=== PATIENT | male | born 1940 | race Caucasian/White ===

== ENCOUNTER → 2018-09-28 | Outpatient (CLI) | payer MEDICARE ==
[2018-09-28 14:08] LABS: Blood Urea Nitrogen 24 mg/dL (9-20)
--- NOTE | 2018-09-28 14:51 | CT ---
EXAMINATION TYPE: CT chest w con DATE OF EXAM: 09/28/2018 COMPARISON: None HISTORY: Abnormal findings lung field CT DLP: 658 mGycm Automated exposure control for dose reduction was used. CONTRAST: CT scan of the chest is performed with IV Contrast, patient injected with 100 mL of Isovue 300. FINDINGS: LUNGS: Pleural-based left upper lobe nodule image 22 measuring 5.4 mm. No additional nodules or tramaine s seen. Minimal upper lobe emphysematous changes. No volume loss or infiltrate. MEDIASTINUM: Right paratracheal adenopathy measuring 2 cm. Prevascular space adenopathy measuring up to 1.1 cm. Multiple subcentimeter high right paratracheal lymph nodes. Subcarinal adenopathy measurin g 1.8 cm. There is evidence of cardiomegaly. Mild atheromatous change of the thoracic aorta without e vidence for aneurysm. UPPER ABDOMEN: Incidental cholelithiasis. Nonobstructing left-sided nephrolithiasis. OTHER: No additional significant abnormality is seen. IMPRESSION: 1. Nonspecific mediastinal adenopathy. 2. Small left upper lobe pulmonary nodule. Follow-up in 4-6 months is advised.
== END | disposition home or self-care (01) ==
LOC: RADCTMAIN 13:25
PROVIDERS: ATTEND Family Medicine
DX: R91.1 Solitary pulmonary nodule (principal); R59.0 Localized enlarged lymph nodes
CPT/HCPCS: 82565; 84520; 71260; 36415; Q9967

== ENCOUNTER → 2018-11-18 | Outpatient (CLI) | payer MEDICARE ==
--- NOTE | 2018-11-18 14:54 | US ---
LOWER EXTREMITY VENOUS INSUFFICIENCY SIDE PERFORMED: Bilateral 1) Color flow is present and patency is documented in the following vessels. No DVT or SVT is noted . EIV Common Femoral Vein Deep Femoral Vein Femoral Vein Popliteal Vein Proximal Calf Veins Greater Saph Vein Upper Small Saph Vein 2) There is venous reflux noted at the following venous levels: None IMPRESSION: 1. No venous reflux bilateral lower extremity ultrasound
== END ==
LOC: RADUSWWP 13:21
PROVIDERS: ATTEND Nurse Practitioner Family
DX: M79.604 Pain in right leg (principal); M79.605 Pain in left leg; E63.8 Other specified nutritional deficiencies
CPT/HCPCS: 93923; 93970

== ENCOUNTER → 2019-10-13 | Outpatient (CLI) | payer MEDICARE ==
--- NOTE | 2019-10-14 06:39 | CT ---
EXAMINATION TYPE: CT chest w con DATE OF EXAM: 10/13/2019 COMPARISON: HISTORY: SOB CT DLP: 659 mGycm Automated exposure control for dose reduction was used. CONTRAST: CT scan of the chest is performed with IV Contrast, patient injected with 100 mL of Isovue 300. FINDINGS: LUNGS: Stable 5.5 mm pulmonary nodule left upper lobe image 21 versus 5.4 mm previously. New 4.4 mm n odular density right lower lobe anteriorly image 29. Parenchymal scarring noted at the lung bases. No evidence for consolidation. No pulmonary mass identified. MEDIASTINUM: Persistent mediastinal adenopathy with high right paratracheal lymph node measuring 1.6 cm multiple right paratracheal lymph nodes measuring up to 2.5 cm versus 2.0 cm previously in short a xis. Subcarinal adenopathy measuring 2.0 cm versus 1.8 cm previously. Adenopathy within the prevascul ar space measuring 1.2 cm versus 1.2 cm previously. Thoracic aorta is of normal caliber. The heart is enlarged. UPPER ABDOMEN: No significant abnormality appreciated. OTHER: No additional significant abnormality is seen. IMPRESSION: 1. Stable left upper lobe pulmonary nodule with a new nodular density right lower lobe. Stability ove r a two-year timeframe should be documented radiographically. 2. Nonspecific mediastinal adenopathy is again redemonstrated. 3. Cholelithiasis. 4 nonobstructing left-sided nephrolithiasis.
== END | disposition home or self-care (01) ==
LOC: RADCTMAIN 15:24
PROVIDERS: ATTEND Family Medicine
DX: K80.20 Calculus of gallbladder without cholecystitis without obstruction (principal); N20.0 Calculus of kidney; R91.1 Solitary pulmonary nodule; R59.0 Localized enlarged lymph nodes
CPT/HCPCS: 82565; 84520; 71260; 36415; Q9967

== ENCOUNTER → 2019-11-09 | Outpatient (CLI) | payer MEDICARE ==
--- NOTE | 2019-11-16 10:39 | P.ARTDOP ---
Arterial Doppler LOWER EXTREMITY ARTERIAL DOPPLER: DATE OF SERVICE: 11/09/2019 Reason for study: Bilateral leg ulcers. Doppler waveforms: Multiphasic throughout on the left. Multiphasic to the posterior tibial on the right. Distally on the right a bit more blunted waveforms. Pulse volume recording: Mild distal blunting. Pressure gradients: Distal gradient on the left. Across the knee gradient on the right.. Ankle-brachial indices: 0.67 on the right and greater than 1 on the left. Toe pressures: 46 on the right, 63 on the left Impression: Pulsatile signals into the toes. Suspect moderate right fem-pop disease and mild left distal disease. Perfusion marginal on the right but probably adequate on the left for healing. Clinical correlation recommended..
== END | disposition home or self-care (01) ==
LOC: RADUSWWP 13:12
PROVIDERS: ATTEND Thoracic Surgery (Cardiothoracic Vascular Surgery)
DX: L97.212 Non-pressure chronic ulcer of right calf with fat layer exposed (principal); L97.222 Non-pressure chronic ulcer of left calf with fat layer exposed
CPT/HCPCS: 93923

== ENCOUNTER 2019-12-22 14:33 | Inpatient (IN) | payer MEDICARE ==
[2019-12-22 16:37] LABS: Glucose,Whole Blood 349 mg/dL (75-99)
--- NOTE | 2019-12-22 16:43 | XR ---
EXAMINATION TYPE: XR chest 1V portable DATE OF EXAM: 12/22/2019 CLINICAL HISTORY: Difficulty breathing and heart failure. TECHNIQUE: Single AP portable upright view of the chest is obtained. COMPARISON: CT chest October 13, 2019 FINDINGS: Overlying sternal wires and mediastinal clips are redemonstrated. Persistent cardiomegaly with atherosclerotic thoracic aorta. Some chronic emphysematous changes without new suspicious focal airspace opacity, pleural effusion, or pneumothorax seen bilaterally. Osseous structures are intact. IMPRESSION: Chronic emphysematous change and cardiomegaly without new suspicious acute pulmonary proc ess.
[2019-12-22 16:59] LABS: VBG PH 7.4 (7.31-7.41)
[2019-12-22 17:11] LABS: Albumin 3.6 g/dL (3.5-5.0); Calcium 8.9 mg/dL (8.4-10.2); Potassium 4.5 mmol/L (3.5-5.1); Total Bilirubin 2.5 mg/dL (0.2-1.3); Total Protein 6.2 g/dL (6.3-8.2)
[2019-12-22] MEDS: FUROSEMIDE 100 MG in SODIUM CHLORIDE 0.9% 90 ML IV SCH (17:52)
--- NOTE | 2019-12-22 18:33 | CONS ---
CONSULTATION Mr. Moise is an 79-year-old gentleman who is admitted because of the symptoms of progressive shortness of breath. This patient has a long-standing history of coronary artery bypass surgery. In 2013 patient underwent redo surgery with aortic valve replacement and bypass graft, too. The surgery was done at [facility]. The patient also has a moderate degree of COPD. Patient had been doing fairly well. Since September the patient has been getting progressively increasing shortness of breath and he can walk only a very short distance. He has difficulty in sleeping with a history suggestive of possible PND. Denies any anginal pain. Patient also has a moderate degree of COPD. He is being followed by Dr. Grace. Patient also recently had a sleep study ordered by . He had a CT scan of the chest done in September of 2019 which did not show any significant abnormality, except a small nodule in the lung was seen. Patient was seen in the office today and because of the significant bilateral leg edema patient is admitted to the hospital for further evaluation and treatment. PAST MEDICAL HISTORY: Past medical history includes coronary artery bypass surgery, aortic valve replacement, ankle surgery. The patient has chronic atrial fibrillation, COPD and hypertension. HOME MEDICATIONS: Patient's medications at home include albuterol, spironolactone, Eliquis, Lipitor, glipizide, Avapro, Lasix, Levaquin, metformin, metoprolol and Symbicort. PHYSICAL EXAMINATION: Physical examination at present reveals an 79-year-old gentleman who is at rest and is not in acute respiratory distress. Patient's heart rate is 90 to 100 per minute, blood pressure 110/78 mmHg. Head/ENT examination is negative. Neck is supple. Jugular venous pressure is elevated up to the angle of the jaw in sitting position. First and second heart sounds are normal. There is a systolic murmur and possible early diastolic murmur is noted. Lung examination reveals bilateral scattered wheezes and a few basal rales are noted. Abdomen is soft. Probably there is there is a fluid thrill and the liver is just palpable. Patient's legs are wrapped in Lloyd bandages and there is pitting edema present. FINAL IMPRESSION: This patient has acute on chronic systolic heart failure. Patient's recent echocardiogram done in November showed ejection fraction of 45% to 50% with inferolateral hypokinesia. Patient's bioprosthetic valve shows a peak gradient of 51, and mean gradient of 32 mmHg was noted across the prosthetic valve with a moderate degree of valvular regurgitation. Patient had a moderate degree of mitral regurgitation and severe pulmonary hypertension with pulmonary artery systolic pressure calculated in the range of 85 mmHg. 1. This patient is admitted with acute on chronic heart failure. Patient's ejection fraction is borderline between 40% and 50%. Rule out significant malfunction of the bioprosthetic aortic valve. 2. Status post coronary artery bypass surgery. 3. History of chronic obstructive pulmonary disease. 4. Chronic atrial fibrillation. RECOMMENDATIONS: Patient is admitted to the hospital. We will aggressively diurese the patient with IV Lasix drip as well as increase the dose of Aldactone. We will monitor BMP. After the patient's condition is better, we will evaluate the patient with a transesophageal echocardiogram to assess the bioprosthetic aortic valve. If there is significant valvular regurgitation, the patient may be considered for repeat aortic valve replacement. MMELBERT / INDYN: [id number] /
[2019-12-22] MEDS: ALBUTEROL NEBULIZED 2.5 MG/3 ML INHALATION SCH (19:05)
[2019-12-22] MEDS: BUDESONIDE 0.25 MG/2 ML NEBU INHALATION SCH (19:05)
[2019-12-22] MEDS: APIXABAN 5 MG TAB PO SCH (19:43)
[2019-12-22] MEDS: metFORMIN 500 MG TAB PO SCH (19:43)
[2019-12-22] MEDS: ATORVASTATIN 20 MG TAB PO SCH (19:44)
[2019-12-22 20:03] LABS: Glucose,Whole Blood 298 mg/dL (75-99)
--- NOTE | 2019-12-22 22:46 | P.HPIM ---
History of Present Illness H&P Date: 12/22/19 Chief Complaint: Short of breath History of presenting complaint: This is a pleasant 79-year-old patient of Dr. matthew. Follows with cardiology Dr. VC Almonte. Chronic stable medical conditions include coronary artery disease with bypass 2 with a redo in 2013 with aortic valve replacement. Also patient's stable condition to diabetes, hyperlipidemia, hypertension. Patient's been getting short of breath progressively over. Her time now much getting much worse. Increasing edema. Patient has orthopnea. He was sleeps up in a recliner. Patient also good wounds of the left leg and [facility] before per Dr. jernigan. Denies any fever and chills. Appetite is okay. Center from the office of Dr. VC Almonte. Review of systems: GEN.: Tired EYES: None HEENT: None NECK: None RESPIRATORY: As above CARDIOVASCULAR: As above GASTROINTESTINAL: None GENITOURINARY: None MUSCULOSKELETAL: Joint pains LYMPHATICS: None HEMATOLOGICAL: None PSYCHIATRY: None NEUROLOGICAL: None Past medical history to include: Coronary artery disease with bypass 2, aortic valve replacement, COPD, diabetes, hypertension, hyperlipidemia, atrial fibrillation Social history: Patient started smoking over 50 years ago. . Retired. Physical examination: VITAL SIGNS: 2098, pulse 99, respiration 28, blood pressure 126/87, 92% on 4 L GENERAL: BMI 33, sitting at the edge of the bed, short of breath. EYES: Pupils equal. Conjunctiva normal. HEENT: External appearance of nose and ears normal, oral cavity grossly normal. NECK: JVD raised; masses not palpable. HEART: First and second heart sounds are normal; significant edema present. LUNGS:[ Respiratory rate increased, not able to speak in full sentences; bilateral crackles ABDOMEN: Soft, nontender slightly distended, liver spleen not palpable, no masses palpable. PSYCH: Alert and oriented x3; mood and affect normal. EXTREMITIES: Dressing over the left leg NEUROLOGICAL: Cranial nerves grossly intact; no facial asymmetry, power and sensation grossly intact. LYMPHATICS: No lymph nodes palpable in the axilla and neck INVESTIGATIONS, reviewed in the clinical context: Potassium 4.5 creatinine 1.14 glucose 349 proBNP 5740 Chest x-ray film personally reviewed by me-cardiomegaly, venous prominence Assessment: -Acute on chronic congestive heart failure exacerbation, EF not known -Diabetes mellitus type 2, uncontrolled with hyperglycemia -Persistent atrial fibrillation on eliquis -Hyperlipidemia -Essential hypertension -Coronary artery disease with a prior history of bypass 2 -Obesity BMI 33 -Left leg wound type unknown, gets dressing of the wound care center by Dr. jernigan Plan: Patient started on Lasix drip. Strict I's and O's. We'll put her fluid restriction 1800 mL an hour. Home medications resumed. Accu-Cheks will be followed. Lovenox for DVT prophylaxis. Cardiology is consulted. Care was discussed with the patient question were answered. Past Medical History Past Medical History: COPD, Diabetes Mellitus, Hyperlipidemia, Hypertension, Myocardial Infarction (MD) Additional Past Medical History / Comment(s): MD 1991, HYPERTENSION 1991 Last Myocardial Infarction Date:: 1991 History of Any Multi-Drug Resistant Organisms: None Reported Past Surgical History: Adenoidectomy, Appendectomy, Coronary Bypass/CABG, Heart Catheterization, Tonsillectomy Additional Past Surgical History / Comment(s): HX CABG 1991 AND CABG-2 VESSEL WITH AVR MARCH 2014. R ANKLE SURGERY FOR REPAIR OF A FRACTURE. Past Anesthesia/Blood Transfusion Reactions: Postoperative Nausea & Vomiting (PONV) Additional Past Anesthesia/Blood Transfusion Reaction / Comment(s): PT STATES HE DID HAVE PONV WITH ANKLE SURGERY ONLY-THINKS HE DRANK TOO MUCH COFFEE IMMEDIATE POST-OP. Past Psychological History: No Psychological Hx Reported Smoking Status: Former smoker Past Alcohol Use History: None Reported Past Drug Use History: None Reported - Past Family History Mother Family Medical History: Congestive Heart Failure (CHF), Hypertension Additional Family Medical History / Comment(s): MOTHER AT AGE 90YRS. Father Family Medical History: Cancer, Congestive Heart Failure (CHF) Additional Family Medical History / Comment(s): FATHER AT 94 YRS. HE HAD HX STOMACH CA. Medications and Allergies Home Medications Medication Instructions Recorded Confirmed Type Metoprolol Succinate [Toprol XL] 25 mg PO DAILY 02/28/14 12/22/19 History metFORMIN HCL [Glucophage] 1,000 mg PO BID 02/28/14 12/22/19 History Atorvastatin Calcium [Lipitor] 20 mg PO HS 03/02/14 12/22/19 History Spironolactone [Aldactone] 25 mg PO DAILY 09/14/14 12/22/19 History Apixaban [Eliquis] 5 mg PO BID #60 tab 09/19/14 12/22/19 Rx Dulaglutide [Trulicity] 0.75 mg SQ MO 11/16/18 12/22/19 History Budesonide/Formoterol Fumarate 2 puff INHALATION RT-BID PRN 12/22/19 12/22/19 History [Symbicort 160-4.5 Mcg Inhaler] Furosemide [Lasix] 40 mg PO BID 12/22/19 12/22/19 History Ipratropium-Albuterol Nebulize 3 ml INHALATION RT-TID PRN 12/22/19 12/22/19 History [Duoneb 0.5 mg-3 mg/3 ml Soln] Irbesartan [Avapro] 150 mg PO DAILY 12/22/19 12/22/19 History Levofloxacin [Levaquin] 500 mg PO DAILY 12/22/19 12/22/19 History glipiZIDE XL [Glucotrol Xl] 10 mg PO DAILY 12/22/19 12/22/19 History Allergies Allergy/AdvReac Type Severity Reaction Status Date / Time No Known Allergies Allergy Verified 12/22/19 16:31 Physical Exam Vitals: Vital Signs Temp Pulse Pulse Resp BP Pulse Ox 12/22/19 19:45 98.2 F 105 H 20 125/67 94 L 12/22/19 19:21 80 12/22/19 19:06 78 98 12/22/19 16:00 98.0 F 99 28 H 126/87 92 L 12/22/19 15:10 98.0 F Intake and Output 12/22/19 12/22/19 12/22/19 06:59 14:59 22:59 Intake Total 236 Output Total 875 Balance -639 Intake: Oral 236 Output: Urine 875 Other: Voiding Method Urinal # Voids 2 Weight 107.2 kg Results CBC & Chem 7: 12/22/19 16:38 Labs: Abnormal Lab Results - Last 24 Hours (Table) 12/22/19 12/22/19 12/22/19 Range/Units 16:36 16:38 16:38 VBG HCO3 23 L (24-28) mmol/L Carbon Dioxide 21 L (22-30) mmol/L BUN 34 H (9-20) mg/dL Glucose 200 H (74-99) mg/dL POC Glucose (mg/dL) 349 H (75-99) mg/dL Total Bilirubin 2.5 H (0.2-1.3) mg/dL Total Protein 6.2 L (6.3-8.2) g/dL 12/22/19 Range/Units 20:02 VBG HCO3 (24-28) mmol/L Carbon Dioxide (22-30) mmol/L BUN (9-20) mg/dL Glucose (74-99) mg/dL POC Glucose (mg/dL) 298 H (75-99) mg/dL Total Bilirubin (0.2-1.3) mg/dL Total Protein (6.3-8.2) g/dL Thrombosis Risk Factor Assmnt - Choose All That Apply Each Factor Represents 1 point: Abnormal pulmonary function (COPD) Each Risk Factor Represents 3 Points: Age 75 years or older Thrombosis Risk Factor Assessment Total Risk Factor Score: 4 Thrombosis Risk Factor Assessment Level: Moderate Risk
[2019-12-23] MEDS: FUROSEMIDE 100 MG in SODIUM CHLORIDE 0.9% 90 ML IV SCH ×3 (03:05→23:57)
[2019-12-23 06:17] LABS: Anisocytosis Slight; Basophils % (A) 0 %; Eosinophils # (A) 0.1 k/uL (0-0.7); Eosinophils % (A) 1 %; HCT 39.6 % (39.0-53.0); HGB 12.6 gm/dL (13.0-17.5); Hypochromasia Slight; Lymphocytes # (A) 0.7 k/uL (1.0-4.8); Lymphocytes % (A) 9 %; MCH 31.1 pg (25.0-35.0); MCHC 31.8 g/dL (31.0-37.0); MCV 97.8 fL (80.0-100.0); Macrocytosis Slight; Mean Platelet Volume 9.5; Monocytes # (A) 0.4 k/uL (0-1.0); Monocytes % (A) 5 %; Neutrophils # (A) 6.3 k/uL (1.3-7.7); Neutrophils % (A) 84 %; Platelet Count 131 k/uL (150-450); Poikilocytosis Slight; RBC 4.05 m/uL (4.30-5.90); RDW 17.3 % (11.5-15.5); WBC 7.5 k/uL (3.8-10.6)
[2019-12-23 06:28] LABS: Calcium 8.8 mg/dL (8.4-10.2); Potassium 4.1 mmol/L (3.5-5.1)
[2019-12-23 06:30] LABS: Glucose,Whole Blood 200 mg/dL (75-99)
[2019-12-23] MEDS: INSULIN ASPART (NovoLOG) 100 UNIT/ML VIAL SQ SCH ×4 (06:36→20:35)
--- NOTE | 2019-12-23 08:38 | P.PN ---
Subjective Progress Note Date: 12/23/19 Principal diagnosis: Systolic congestive heart failure This is a pleasant 79-year-old gentleman who sees Dr. Almonte in the office with history of extensive coronary artery disease and prior revascularization, ischemic cardiomyopathy, long-standing persistent atrial fibrillation, and valvular heart disease and status post aortic valve replacement using bioprosthetic valve, was admitted to the hospital with symptoms of progressive dyspnea as well as orthopnea and fluid retention and he was diagnosed with heart failure exacerbation. The patient was seen today, 12/23/2019. He stated that he is feeling better. He still have bilateral lower except his edema. He stated that the shortness of breath is better. Currently he is on Lasix drip and the creatinine continues to be within normal limits. There is some concern about his bioprosthetic aortic valve and down the line he will be scheduled to undergo CROW. Objective - Vital Signs Vital signs: Vital Signs Temp 98.0 F 12/23/19 03:45 Pulse 89 12/23/19 03:45 Resp 20 12/23/19 03:45 BP 105/61 12/23/19 03:45 Pulse Ox 95 12/23/19 03:45 Intake & Output 12/22/19 12/23/19 12/23/19 18:59 06:59 18:59 Intake Total 236 192.167 Output Total 0 Balance 236 -1857.833 Weight 107.2 kg 104.4 kg Intake: Intake, IV Titration 92.167 Amount Furosemide 100 mg In 92.167 Sodium Chloride 0.9% 90 ml @ 10 MG/HR 10 mls/hr IV .Q10H [facility] Rx#: [id number] Oral 236 100 Output: Urine 2049 Other: Voiding Method Urinal # Voids 1 - Constitutional General appearance: Present: no acute distress - Respiratory Respiratory: bilateral: diminished - Cardiovascular Rhythm: irregularly irregular Heart sounds: normal: S1, S2 Abnormal Heart Sounds: Present: systolic murmur - Labs CBC & Chem 7: 12/23/19 05:20 12/23/19 05:20 Labs: Abnormal Lab Results - Last 24 Hours (Table) 12/22/19 12/22/19 12/22/19 Range/Units 16:36 16:38 16:38 RBC (4.30-5.90) m/uL Hgb (13.0-17.5) gm/dL RDW (11.5-15.5) % Plt Count (150-450) k/uL Lymphocytes # (1.0-4.8) k/uL VBG HCO3 23 L (24-28) mmol/L Carbon Dioxide 21 L (22-30) mmol/L BUN 34 H (9-20) mg/dL Glucose 200 H (74-99) mg/dL POC Glucose (mg/dL) 349 H (75-99) mg/dL Total Bilirubin 2.5 H (0.2-1.3) mg/dL Total Protein 6.2 L (6.3-8.2) g/dL 12/22/19 12/23/19 12/23/19 Range/Units 20:02 05:20 05:20 RBC 4.05 L (4.30-5.90) m/uL Hgb 12.6 L (13.0-17.5) gm/dL RDW 17.3 H (11.5-15.5) % Plt Count 131 L (150-450) k/uL Lymphocytes # 0.7 L (1.0-4.8) k/uL VBG HCO3 (24-28) mmol/L Carbon Dioxide (22-30) mmol/L BUN 28 H (9-20) mg/dL Glucose 190 H (74-99) mg/dL POC Glucose (mg/dL) 298 H (75-99) mg/dL Total Bilirubin (0.2-1.3) mg/dL Total Protein (6.3-8.2) g/dL 12/23/19 Range/Units 06:28 RBC (4.30-5.90) m/uL Hgb (13.0-17.5) gm/dL RDW (11.5-15.5) % Plt Count (150-450) k/uL Lymphocytes # (1.0-4.8) k/uL VBG HCO3 (24-28) mmol/L Carbon Dioxide (22-30) mmol/L BUN (9-20) mg/dL Glucose (74-99) mg/dL POC Glucose (mg/dL) 200 H (75-99) mg/dL Total Bilirubin (0.2-1.3) mg/dL Total Protein (6.3-8.2) g/dL Assessment and Plan Assessment: Assessment #1 congestive heart failure exacerbation secondary to systolic dysfunction #2 ischemic cardiomyopathy #3 valvular heart disease and status post aortic valve replacement using a prosthetic valve #4 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
[2019-12-23] MEDS: SPIRONOLACTONE 25 MG TAB PO SCH (08:43)
[2019-12-23] MEDS: APIXABAN 5 MG TAB PO SCH ×2 (08:43→20:35)
[2019-12-23] MEDS: metFORMIN 500 MG TAB PO SCH ×2 (08:44→20:35)
[2019-12-23] MEDS: LOSARTAN 50 MG TAB PO SCH (08:44)
[2019-12-23] MEDS: METOPROLOL SUCCINATE (ER) 25 MG TAB.ER.24H PO SCH (08:45)
[2019-12-23] MEDS: BUDESONIDE 0.25 MG/2 ML NEBU INHALATION SCH ×2 (08:52→19:39)
[2019-12-23] MEDS: ALBUTEROL NEBULIZED 2.5 MG/3 ML INHALATION SCH ×4 (08:53→19:39)
[2019-12-23] MEDS ORDERED: glipiZIDE 5 MG TAB PO SCH (09:00)
--- NOTE | 2019-12-23 09:05 | P.CONS ---
History of Present Illness - Reason for Consult Consult date: 12/23/19 Wound care - History of Present Illness This is an 79-year-old patient being seen on 3 S. by the wound care center for bilateral lower extremity ulcerations. This is a patient is known to the wound care center he is seen by Dr. García. At this time he has compression wraps bilaterally that he has been tolerating well. At this time patient is tolerating compression wraps without any difficulties. Patient has no comp laints or concerns regarding the ulcerations to bilateral legs. Last visit patient did have difficulties with edema and weeping of the left leg discussed with patient the importance of keeping legs elevated. Patient was given Levaquin and outpatient setting on 12/21/2019. Patient's past medical history significant for COPD, diabetes mellitus, hyperlipidemia, hypertension. Review of Systems Review Of Systems: Constitutional: No fever, no chills, no night sweats. No weight change. No weakness, fatigue or lethargy. No daytime sleepiness. Reports shortness of breath Integumentary:reports wounds, no lesions. No rash or pruritus. No unusual br uising. No change in hair or nails. Past Medical History Past Medical History: COPD, Diabetes Mellitus, Hyperlipidemia, Hypertension, Myocardial Infarction ([place]) Additional Past Medical History / Comment(s): [place] 1991, HYPERTENSION 1991 Last Myocardial Infarction Date:: 1991 History of Any Multi-Drug Resistant Organisms: None Reported Past Surgical History: Adenoidectomy, Appendectomy, Coronary Bypass/CABG, Heart Catheterization, Tonsillectomy Additional Past Surgical History / Comment(s): HX CABG 1991 AND CABG-2 VESSEL WITH AVR MARCH 2014. R ANKLE SURGERY FOR REPAIR OF A FRACTURE. Past Anesthesia/Blood Transfusion Reactions: Postoperative Nausea & Vomiting (PONV) Additional Past Anesthesia/Blood Transfusion Reaction / Comm: PT STATES HE DID HAVE PONV WITH ANKLE SURGERY ONLY-THINKS HE DRANK TOO MUCH COFFEE IMMEDIATE POST-OP. Past Psychological History: No Psychological Hx Reported Smoking Status: Former smoker Past Alcohol Use History: None Reported Past Drug Use History: None Reported - Past Family History Mother Family Medical History: Congestive Heart Failure (CHF), Hypertension Additional Family Medical History / Comment(s): MOTHER AT AGE 90YRS. Father Family Medical History: Cancer, Congestive Heart Failure (CHF) Additional Family Medical History / Comment(s): FATHER AT 94 YRS. HE HAD HX STOMACH CA. Medications and Allergies Home Medications Medication Instructions Recorded Confirmed Type Metoprolol Succinate [Toprol XL] 25 mg PO DAILY 02/28/14 12/22/19 History metFORMIN HCL [Glucophage] 1,000 mg PO BID 02/28/14 12/22/19 History Atorvastatin Calcium [Lipitor] 20 mg PO HS 03/02/14 12/22/19 History Spironolactone [Aldactone] 25 mg PO DAILY 09/14/14 12/22/19 History Apixaban [Eliquis] 5 mg PO BID #60 tab 09/19/14 12/22/19 Rx Dulaglutide [Trulicity] 0.75 mg SQ MO 11/16/18 12/22/19 History Budesonide/Formoterol Fumarate 2 puff INHALATION RT-BID PRN 12/22/19 12/22/19 History [Symbicort 160-4.5 Mcg Inhaler] Furosemide [Lasix] 40 mg PO BID 12/22/19 12/22/19 History Ipratropium-Albuterol Nebulize 3 ml INHALATION RT-TID PRN 12/22/19 12/22/19 History [Duoneb 0.5 mg-3 mg/3 ml Soln] Irbesartan [Avapro] 150 mg PO DAILY 12/22/19 12/22/19 History Levofloxacin [Levaquin] 500 mg PO DAILY 12/22/19 12/22/19 History glipiZIDE XL [Glucotrol Xl] 10 mg PO DAILY 12/22/19 12/22/19 History Allergies Allergy/AdvReac Type Severity Reaction Status Date / Time No Known Allergies Allergy Verified 12/22/19 16:31 Physical Exam Vitals: Vital Signs Temp Pulse Pulse Resp BP Pulse Ox 12/23/19 08:53 76 12/23/19 08:00 97.6 F 110 H 21 130/58 95 12/23/19 03:45 98.0 F 89 20 105/61 95 12/22/19 23:15 101 H 20 111/71 95 12/22/19 19:45 98.2 F 105 H 20 125/67 94 L 12/22/19 19:21 80 12/22/19 19:06 78 98 12/22/19 16:00 98.0 F 99 28 H 126/87 92 L 12/22/19 15:10 98.0 F Intake and Output 12/22/19 12/23/19 12/23/19 22:59 06:59 14:59 Intake Total 236 192.167 Output Total 875 1175 Balance -639 -982.833 Intake: Intake, IV Titration 92.167 Amount Furosemide 100 mg In 92.167 Sodium Chloride 0.9% 90 ml @ 10 MG/HR 10 mls/hr IV .Q10H [facility] Rx#: [id number] Oral 236 100 Output: Urine 875 1175 Other: Voiding Method Urinal # Voids 2 1 Weight 107.2 kg 104.4 kg Physical exam: General Appearance: Alert, cooperative, mild distress, shortness of breath with conversation, appears stated age. Skin: See HPI all other Skin color, texture, tugor normal, no rashes or lesions. Neurologic: Alert oriented x3 Results CBC & Chem 7: 12/23/19 05:20 12/23/19 05:20 Labs: Abnormal Lab Results - Last 24 Hours (Table) 12/22/19 12/22/19 12/22/19 Range/Units 16:36 16:38 16:38 RBC (4.30-5.90) m/uL Hgb (13.0-17.5) gm/dL RDW (11.5-15.5) % Plt Count (150-450) k/uL Lymphocytes # (1.0-4.8) k/uL VBG HCO3 23 L (24-28) mmol/L Carbon Dioxide 21 L (22-30) mmol/L BUN 34 H (9-20) mg/dL Glucose 200 H (74-99) mg/dL POC Glucose (mg/dL) 349 H (75-99) mg/dL Total Bilirubin 2.5 H (0.2-1.3) mg/dL Total Protein 6.2 L (6.3-8.2) g/dL 12/22/19 12/23/19 12/23/19 Range/Units 20:02 05:20 05:20 RBC 4.05 L (4.30-5.90) m/uL Hgb 12.6 L (13.0-17.5) gm/dL RDW 17.3 H (11.5-15.5) % Plt Count 131 L (150-450) k/uL Lymphocytes # 0.7 L (1.0-4.8) k/uL VBG HCO3 (24-28) mmol/L Carbon Dioxide (22-30) mmol/L BUN 28 H (9-20) mg/dL Glucose 190 H (74-99) mg/dL POC Glucose (mg/dL) 298 H (75-99) mg/dL Total Bilirubin (0.2-1.3) mg/dL Total Protein (6.3-8.2) g/dL 12/23/19 Range/Units 06:28 RBC (4.30-5.90) m/uL Hgb (13.0-17.5) gm/dL RDW (11.5-15.5) % Plt Count (150-450) k/uL Lymphocytes # (1.0-4.8) k/uL VBG HCO3 (24-28) mmol/L Carbon Dioxide (22-30) mmol/L BUN (9-20) mg/dL Glucose (74-99) mg/dL POC Glucose (mg/dL) 200 H (75-99) mg/dL Total Bilirubin (0.2-1.3) mg/dL Total Protein (6.3-8.2) g/dL Assessment and Plan (1) Type 2 diabetes with skin ulcer of lower extremity Current Visit: Yes Status: Acute Code(s): E11.622 - TYPE 2 DIABETES MELLITUS WITH OTHER SKIN ULCER; L97.909 - NON-PRS CHRONIC ULC UNSP PRT OF UNSP LOW LEG W UNSP SEVERITY SNOMED Code(s): 952555901 (2) Non-pressure chronic ulcer of right calf with fat layer exposed Current Visit: Yes Status: Acute Code(s): L97.212 - NON-PRESSURE CHRONIC ULCER OF RIGHT CALF W FAT LAYER EXPOSED SNOMED Code(s): 57789616750779324 (3) Non-pressure chronic ulcer of left calf with fat layer exposed Current Visit: Yes Status: Acute Code(s): L97.222 - NON-PRESSURE CHRONIC ULCER OF LEFT CALF W FAT LAYER EXPOSED SNOMED Code(s): 18568547684069735 Plan: Keep compression wraps in place. Patient to elevate legs at least 3 times a day for 30 minutes above the heart. Limit the amount of time legs are dependent and a sitting position. Patient continues continue his outpatient appointments with the wound care center. Next appointment 12/28/2019 at 11:15. If patient is still in the hospital at that time please notify the wound care center for removal of the compression wrap. Thank you kindly for the consultation. Any questions please contact the wound care center DNP note has been reviewed and discussed with Dr. García and the impression and plan of care has been directed as dictated.
[2019-12-23 11:36] LABS: Glucose,Whole Blood 206 mg/dL (75-99)
--- NOTE | 2019-12-23 12:53 | P.CNPUL ---
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 Denied any chest pain. Denied any coughing or wheezing, denied any fever or phlegm production, no chills. He thinks his COPD is under good control right now, he has home oxygen and only wears it on as-needed basis and at bedtime. Chest x-ray showed chronic emphysematous changes and cardiomegaly without new suspicious acute pulmonary process. His lab work on admission showed sodium of 139, potassium is 4.5, chloride is 104, CO2 is 21, BUN is 34 creatinine is 1.14, venous blood gases were completed showing bicarb 23, pCO2 37, pH of 7.40, proBNP was 5740. No leukocytosis white blood cell count 7.5, hemoglobin is 12.6. Patient was in significant fluid overload, he was started on Lasix drip at 10 mg per hour, patient is in -1621 mL fluid balance over the last 24 hours, still has significant amount of pitting edema in his lower extremities up to his thighs. Cardiology is following and is planning on CROW to check on the status of the bioprosthetic valve. In addition patient has chronic lower extremity diabetic wounds for which he follows at the wound care center under the care of Dr. Song. His COPD seems to be stable at this time, with no significant coughing wheezing or congestion, he is on no maintenance of Symbicort, and DuoNeb on a regular basis. He is on Levaquin for empiric antibiotic coverage. We are asked to see the patient in consultation for acute on chronic dyspnea which seems to be exacerbated by CHF exacerbation. Review of Systems All systems: negative Constitutional: Denies chills, Denies fever Eyes: denies blurred vision, denies pain Ears, nose, mouth and throat: Denies headache, Denies sore throat Cardiovascular: Reports decreased exercise tolerance, Reports dyspnea on exertion, Reports leg edema, Reports shortness of breath, Denies chest pain Respiratory: Reports dyspnea, Reports home oxygen, Denies cough Gastrointestinal: Denies abdominal pain, Denies diarrhea, Denies nausea, Denies vomiting Musculoskeletal: Denies myalgias Musculoskeletal: bilateral: ankle swelling, knee swelling Integumentary: Reports foot/leg ulcers, Reports wounds, Denies pruritus, Denies rash Neurological: Denies numbness, Denies weakness Psychiatric: Denies anxiety, Denies depression Endocrine: Denies fatigue, Denies weight change Past Medical History Past Medical History: COPD, Diabetes Mellitus, Hyperlipidemia, Hypertension, Myocardial Infarction ([place]) Additional Past Medical History / Comment(s): [place] 1991, HYPERTENSION 1991 Last Myocardial Infarction Date:: 1991 History of Any Multi-Drug Resistant Organisms: None Reported Past Surgical History: Adenoidectomy, Appendectomy, Coronary Bypass/CABG, Heart Catheterization, Tonsillectomy Additional Past Surgical History / Comment(s): HX CABG 1991 AND CABG-2 VESSEL WITH AVR MARCH 2014. R ANKLE SURGERY FOR REPAIR OF A FRACTURE. Past Anesthesia/Blood Transfusion Reactions: Postoperative Nausea & Vomiting (PONV) Additional Past Anesthesia/Blood Transfusion Reaction / Comment(s): PT STATES HE DID HAVE PONV WITH ANKLE SURGERY ONLY-THINKS HE DRANK TOO MUCH COFFEE IMMEDIATE POST-OP. Past Psychological History: No Psychological Hx Reported Smoking Status: Former smoker Past Alcohol Use History: None Reported Past Drug Use History: None Reported - Past Family History Mother Family Medical History: Congestive Heart Failure (CHF), Hypertension Additional Family Medical History / Comment(s): MOTHER AT AGE 90YRS. Father Family Medical History: Cancer, Congestive Heart Failure (CHF) Additional Family Medical History / Comment(s): FATHER AT 94 YRS. HE HAD HX STOMACH CA. Medications and Allergies Home Medications Medication Instructions Recorded Confirmed Type Metoprolol Succinate [Toprol XL] 25 mg PO DAILY 02/28/14 12/22/19 History metFORMIN HCL [Glucophage] 1,000 mg PO BID 02/28/14 12/22/19 History Atorvastatin Calcium [Lipitor] 20 mg PO HS 03/02/14 12/22/19 History Spironolactone [Aldactone] 25 mg PO DAILY 09/14/14 12/22/19 History Apixaban [Eliquis] 5 mg PO BID #60 tab 09/19/14 12/22/19 Rx Dulaglutide [Trulicity] 0.75 mg SQ MO 11/16/18 12/22/19 History Budesonide/Formoterol Fumarate 2 puff INHALATION RT-BID PRN 12/22/19 12/22/19 History [Symbicort 160-4.5 Mcg Inhaler] Furosemide [Lasix] 40 mg PO BID 12/22/19 12/22/19 History Ipratropium-Albuterol Nebulize 3 ml INHALATION RT-TID PRN 12/22/19 12/22/19 History [Duoneb 0.5 mg-3 mg/3 ml Soln] Irbesartan [Avapro] 150 mg PO DAILY 12/22/19 12/22/19 History Levofloxacin [Levaquin] 500 mg PO DAILY 12/22/19 12/22/19 History glipiZIDE XL [Glucotrol Xl] 10 mg PO DAILY 12/22/19 12/22/19 History Allergies Allergy/AdvReac Type Severity Reaction Status Date / Time No Known Allergies Allergy Verified 12/22/19 16:31 Physical Exam Vitals: Vital Signs Temp Pulse Pulse Resp BP Pulse Ox 12/23/19 12:00 98.1 F 74 18 134/63 95 12/23/19 09:09 80 12/23/19 08:53 76 12/23/19 08:00 97.6 F 110 H 21 130/58 95 12/23/19 03:45 98.0 F 89 20 105/61 95 12/22/19 23:15 101 H 20 111/71 95 12/22/19 19:45 98.2 F 105 H 20 125/67 94 L 12/22/19 19:21 80 12/22/19 19:06 78 98 12/22/19 16:00 98.0 F 99 28 H 126/87 92 L 12/22/19 15:10 98.0 F Intake and Output 12/22/19 12/23/19 12/23/19 22:59 06:59 14:59 Intake Total 236 192.167 360 Output Total 875 1175 300 Balance -639 -982.833 60 Intake: Intake, IV Titration 92.167 Amount Furosemide 100 mg In 92.167 Sodium Chloride 0.9% 90 ml @ 10 MG/HR 10 mls/hr IV .Q10H [facility] Rx#: [id number] Oral 236 100 360 Output: Urine 875 1175 300 Other: Voiding Method Urinal Urinal # Voids 2 1 1 Weight 107.2 kg 104.4 kg 104.4 kg GENERAL EXAM: Alert, very pleasant, 79-year-old white male on 4 L of oxygen with a pulse ox of 92-98%, comfortable in no apparent distress. HEAD: Normocephalic/atraumatic. EYES: Normal reaction of pupils, equal size. Conjunctiva pink, sclera white. NOSE: Clear with pink turbinates. THROAT: No erythema or exudates. NECK: No masses, no JVD, no thyroid enlargement, no adenopathy. CHEST: No chest wall deformity. Symmetrical expansion. LUNGS: Equal air entry with bibasilar crackles, but no wheeze, rhonchi or dullness. CVS: Irregular rate and rhythm, normal S1 and S2, no gallops, no murmurs, no rubs ABDOMEN: Soft, nontender. No hepatosplenomegaly, normal bowel sounds, no guarding or rigidity. EXTREMITIES: No clubbing, significant lower extremity edema involving feet, ankles, legs, and thighs, 2+ pitting edema no cyanosis, 2+ pulses and upper and lower extremities. MUSCULOSKELETAL: Muscle strength and tone normal. SPINE: No scoliosis or deformity SKIN: No rashes, chronic diabetic wounds involving CENTRAL NERVOUS SYSTEM: Alert and oriented -3. No focal deficits, tone is normal in all 4 extremities. PSYCHIATRIC: Alert and oriented -3. Appropriate affect. Intact judgment and insight. Results - Laboratory Findings CBC and BMP: 12/23/19 05:20 12/23/19 05:20 Abnormal lab findings: Abnormal Labs 12/22/19 12/22/19 12/22/19 16:36 16:38 16:38 RBC Hgb RDW Plt Count Lymphocytes # VBG HCO3 23 L Carbon Dioxide 21 L BUN 34 H Glucose 200 H POC Glucose (mg/dL) 349 H Total Bilirubin 2.5 H Total Protein 6.2 L 12/22/19 12/23/19 12/23/19 20:02 05:20 05:20 RBC 4.05 L Hgb 12.6 L RDW 17.3 H Plt Count 131 L Lymphocytes # 0.7 L VBG HCO3 Carbon Dioxide BUN 28 H Glucose 190 H POC Glucose (mg/dL) 298 H Total Bilirubin Total Protein 12/23/19 12/23/19 06:28 11:35 RBC Hgb RDW Plt Count Lymphocytes # VBG HCO3 Carbon Dioxide BUN Glucose POC Glucose (mg/dL) 200 H 206 H Total Bilirubin Total Protein - Diagnostic Findings Chest x-ray: report reviewed, image reviewed Assessment and Plan Plan: Assessment: #1. Acute on chronic hypoxic rest or a failure related to acute exacerbation of chronic congestive heart failure with systolic dysfunction, patient's ejection fraction is between 40 and 50% #2. Coronary artery disease, with previous bypass grafting and a redo in 2013 with aortic valve replacement #3. Aortic valve disease, status post bioprosthetic valve replacement in 2013 #4. COPD, wears oxygen on as-needed basis #5. Former smoker, currently in remission #6. Diabetes mellitus type 2 #7. Hypertension #8. Hyperlipidemia #9. Chronic atrial fibrillation on Eliquis #10. 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 Song, with previous history of infection with Acinetobacter baumanii, and staph plan: Continue to diuretics, patient is maintaining negative fluid balance, no significant coughing or wheezing, will continue with nebulized bronchodilators, COPD is not active at this time. Continue same antibiotics. Continue to follow along with cardiology, and they're considering a CROW to check on status of the bioprosthetic aortic valve. I performed a history & physical examination of the patient and discussed their management with my nurse practitioner, Vera Levy. I reviewed the nurse practitioner's note and agree with the documented findings and plan of care. Lung sounds are positive for bibasilar crackles The findings and the impression was discussed with the patient. I attest to the documentation by the nurse prac titioner. Time with Patient: Greater than 30
[2019-12-23] MEDS: LEVOFLOXACIN 500 MG TAB PO SCH ×2 (13:01→17:35)
--- NOTE | 2019-12-23 14:58 | P.PN ---
Progress Note - Text Progress Note Date: 12/23/19 Chief Complaint: Short of breath History of presenting complaint: This is a pleasant 79-year-old patient of Dr. matthew. Follows with cardiology Dr. VC Almonte. Chronic stable medical conditions include coronary artery disease with bypass 2 with a redo in 2014 with aortic valve replacement. Also patient's stable condition to diabetes, hyperlipidemia, hypertension. Patient's been getting short of breath progressively over. Her time now much getting much worse. Increasing edema. Patient has orthopnea. He was sleeps up in a recliner. Patient also good wounds of the left leg and goes to the [facility]. before per Dr. jernigan. Denies any fever and chills. Appetite is okay. Center from the office of Dr. VC Almonte. Admitted with acute CHF exacerbation. Started on IV Lasix drip. Today-on IV Lasix drip. Diuresing. We'll initiate better. Family the bedside. Did tolerate some diet. Review of systems: Was done for constitutional, cardiovascular, GI, pulmonary. relevant finding as above Active Medications Albuterol Sulfate (Ventolin Nebulized) 2.5 mg INHALATION RT-QID [facility] Last Admin: 12/23/19 12:38 Dose: 2.5 mg Documented by: Apixaban (Eliquis) 5 mg PO BID [facility] Last Admin: 12/23/19 08:43 Dose: 5 mg Documented by: Atorvastatin Calcium (Lipitor) 20 mg PO HS [facility] Last Admin: 12/22/19 19:44 Dose: 20 mg Documented by: Budesonide (Pulmicort) 0.25 mg INHALATION RT-BID [facility] Last Admin: 12/23/19 08:52 Dose: 0.25 mg Documented by: Furosemide 100 mg/ Sodium (Chloride) 100 mls @ 10 mls/hr IV .Q10H [facility] Last Admin: 12/23/19 12:58 Dose: 10 mg/hr, 10 mls/hr Documented by: Insulin Aspart (Novolog) 0 unit SQ ACHS [facility]; Protocol Last Admin: 12/23/19 11:57 Dose: 4 unit Documented by: Levofloxacin (Levaquin) 500 mg PO DAILY [facility] Last Admin: 12/23/19 13:01 Dose: Not Given Documented by: Losartan Potassium (Cozaar) 50 mg PO DAILY [facility] Last Admin: 12/23/19 08:44 Dose: 50 mg Documented by: Metformin HCl (Glucophage) 1,000 mg PO BID [facility] Last Admin: 12/23/19 08:44 Dose: 1,000 mg Documented by: Metoprolol Succinate (Toprol Xl) 25 mg PO DAILY [facility] Last Admin: 12/23/19 08:45 Dose: 25 mg Documented by: Non-Formulary Medication (Dulaglutide [Trulicity]) 0.75 mg SQ MO [facility] Spironolactone (Aldactone) 25 mg PO DAILY [facility] Last Admin: 12/23/19 08:43 Dose: 25 mg Documented by: Physical examination: VITAL SIGNS: 98.1, 74, 18, 134/63, 95% on 4 L GENERAL: BMI 33, sitting at the edge of the bed, a bit less short of breath. EYES: Pupils equal. Conjunctiva normal. HEENT: External appearance of nose and ears normal, oral cavity grossly normal. NECK: JVD raised; masses not palpable. HEART: First and second heart sounds are normal; significant edema present. LUNGS:[ Respiratory rate increased, not able to speak in full sentences; bilateral crackles ABDOMEN: Soft, nontender slightly distended, liver spleen not palpable, no masses palpable. PSYCH: Alert and oriented x3; mood and affect normal. EXTREMITIES: Dressing over the left leg INVESTIGATIONS, reviewed in the clinical context: White count 7.5 hemoglobin 12.6 potassium 4.1 crit 1.01 Previous testing Potassium 4.5 creatinine 1.14 glucose 349 proBNP 5740 Chest x-ray film personally reviewed by me-cardiomegaly, venous prominence Assessment: -Acute on chronic congestive heart failure exacerbation, EF not known -Diabetes mellitus type 2, uncontrolled with hyperglycemia -Persistent atrial fibrillation on eliquis -Hyperlipidemia -Essential hypertension -Coronary artery disease with a prior history of bypass 2 -Obesity BMI 33 -Left leg wound type unknown, gets dressing of the wound care center by Dr. jernigan Plan: Continue with IV Lasix drip. Other medications to continue. Discussed with the patient and family. Expect patient to be a through the weekend. Follow electrolytes closely.
[2019-12-23 16:45] LABS: Glucose,Whole Blood 141 mg/dL (75-99)
[2019-12-23 20:22] LABS: Glucose,Whole Blood 169 mg/dL (75-99)
[2019-12-23] MEDS: ATORVASTATIN 20 MG TAB PO SCH (20:35)
[2019-12-24 06:14] LABS: Glucose,Whole Blood 166 mg/dL (75-99)
[2019-12-24 06:23] LABS: Anisocytosis Slight; Basophils % (A) 0 %; Eosinophils # (A) 0.1 k/uL (0-0.7); Eosinophils % (A) 2 %; HGB 11.9 gm/dL (13.0-17.5); Hypochromasia Slight; Lymphocytes # (A) 0.7 k/uL (1.0-4.8); Lymphocytes % (A) 11 %; MCH 30.9 pg (25.0-35.0); MCHC 32.3 g/dL (31.0-37.0); MCV 95.8 fL (80.0-100.0); Macrocytosis Slight; Mean Platelet Volume 9.3; Monocytes # (A) 0.4 k/uL (0-1.0); Monocytes % (A) 6 %; Neutrophils # (A) 5.1 k/uL (1.3-7.7); Neutrophils % (A) 80 %; Platelet Count 141 k/uL (150-450); Poikilocytosis Slight; RBC 3.86 m/uL (4.30-5.90); RDW 17.5 % (11.5-15.5); WBC 6.5 k/uL (3.8-10.6)
[2019-12-24 06:36] LABS: African American GFR (CKD) >90 (>60 ml/min/1.73 sqM); Anion Gap 9 mmol/L; Blood Urea Nitrogen 23 mg/dL (9-20); Calcium 8.5 mg/dL (8.4-10.2); Carbon Dioxide 28 mmol/L (22-30); Chloride 99 mmol/L (98-107); Glucose 140 mg/dL (74-99); Magnesium 1.5 mg/dL (1.6-2.3); Non-African American GFR(CKD) 82 (>60 ml/min/1.73 sqM); Potassium 3.4 mmol/L (3.5-5.1); Sodium 136 mmol/L (137-145)
[2019-12-24] MEDS: INSULIN ASPART (NovoLOG) 100 UNIT/ML VIAL SQ SCH ×4 (06:50→20:39)
[2019-12-24] MEDS: LOSARTAN 50 MG TAB PO SCH (07:41)
[2019-12-24] MEDS: LEVOFLOXACIN 500 MG TAB PO SCH (07:41)
[2019-12-24] MEDS: METOPROLOL SUCCINATE (ER) 25 MG TAB.ER.24H PO SCH (07:41)
[2019-12-24] MEDS: APIXABAN 5 MG TAB PO SCH ×2 (07:41→20:17)
[2019-12-24] MEDS: metFORMIN 500 MG TAB PO SCH ×2 (07:41→20:17)
[2019-12-24] MEDS: FUROSEMIDE 100 MG in SODIUM CHLORIDE 0.9% 90 ML IV SCH ×2 (07:42→16:33)
[2019-12-24] MEDS: SPIRONOLACTONE 25 MG TAB PO SCH (07:42)
[2019-12-24] MEDS: ACETAMINOPHEN TAB 325 MG TAB PO PRN (07:45)
[2019-12-24] MEDS: BUDESONIDE 0.25 MG/2 ML NEBU INHALATION SCH (08:15)
[2019-12-24] MEDS: ALBUTEROL NEBULIZED 2.5 MG/3 ML INHALATION SCH ×2 (08:15→11:14)
[2019-12-24 11:44] LABS: Glucose,Whole Blood 176 mg/dL (75-99)
--- NOTE | 2019-12-24 11:46 | P.PN ---
Subjective Progress Note Date: 12/24/19 Principal diagnosis: Dyspnea, increased lower extremity edema 79-year-old white male patient with past medical history of COPD, chronic congestive heart failure with previously documented preserved left ventricular systolic function, valvular heart disease status post aortic valve replacement with a bioprosthetic valve, coronary artery disease status post bypass grafting, chronic atrial fibrillation on Eliquis, diabetes mellitus type 2, ischemic cardiomyopathy, who came into the hospital on 2019 for evaluation of worsening dyspnea and increased swelling in his lower extremities, patient was complaining of increased exertional dyspnea, he could hardly walk a few feet without being significantly short of breath. Denied any chest pain. Denied any coughing or wheezing, denied any fever or phlegm production, no chills. He thinks his COPD is under good control right now, he has home oxygen and only wears it on as-needed basis and at bedtime. Chest x-ray showed chronic emphysematous changes and cardiomegaly without new suspicious acute pulmonary process. His lab work on admission showed sodium of 139, potassium is 4.5, chloride is 104, CO2 is 21, BUN is 34 creatinine is 1.14, venous blood gases were completed showing bicarb 23, pCO2 37, pH of 7.40, proBNP was 5740. No leukocytosis white blood cell count 7.5, hemoglobin is 12.6. Patient was in significant fluid overload, he was started on Lasix drip at 10 mg per hour, patient is in -1621 mL fluid balance over the last 24 hours, still has significant amount of pitting edema in his lower extremities up to his thighs. Cardiology is following and is planning on CROW to check on the status of the bio prosthetic valve. In addition patient has chronic lower extremity diabetic wounds for which he follows at the wound care center under the care of Dr. Song. His COPD seems to be stable at this time, with no significant coughing wheezing or congestion, he is on no maintenance of Symbicort, and DuoNeb on a regular basis. He is on Levaquin for empiric antibiotic coverage. We are asked to see the patient in consultation for acute on chronic dyspnea which seems to be exacerbated by CHF exacerbation. The patient is seen today 12/24/2019 in follow-up on the selective care unit. He is currently sitting up in a chair at the bedside. Awake and alert in no acute distress. He denies any worsening shortness of breath, cough or congestion. Currently maintaining O2 saturations in the low 90s on 4 L/m per nasal cannula. Afebrile. Hemodynamically stable. White count 6.5. Hemoglobin 11.9. Sodium 136. Potassium 3.4. Creatinine 0.86. He remains on a Lasix drip at 10 mg per hour. Anticoagulated with Eliquis. He is currently in a -1320 ML balance. Weight down to 102 kg. Objective - Vital Signs Vital signs: Vital Signs Temp 98.2 F 12/24/19 11:29 Pulse 65 12/24/19 11:29 Resp 18 12/24/19 11:29 BP 112/60 12/24/19 11:29 Pulse Ox 94 L 12/24/19 11:29 Intake & Output 12/23/19 12/24/19 12/24/19 18:59 06:59 18:59 Intake Total 1178.833 100 257.5 Output Total 800 2080 Balance 378.833 -1980 257.5 Weight 104.4 kg 102 kg Intake: Intake, IV Titration 98.833 100 77.5 Amount Furosemide 100 mg In 98.833 100 77.5 Sodium Chloride 0.9% 90 ml @ 10 MG/HR 10 mls/hr IV .Q10H [facility] Rx#: [id number] Oral 1080 180 Output: Urine 800 2080 Other: Voiding Method Urinal Urinal # Voids 2 2 # Bowel Movements 1 - Exam GENERAL EXAM: Alert, very pleasant, 79-year-old male patient on 4 L of oxygen with a pulse ox of 94%, comfortable in no apparent distress. HEAD: Normocephalic/atraumatic. EYES: Normal reaction of pupils, equal size. Conjunctiva pink, sclera white. NOSE: Clear with pink turbinates. THROAT: No erythema or exudates. NECK: No masses, no JVD, no thyroid enlargement, no adenopathy. CHEST: No chest wall deformity. Symmetrical expansion. LUNGS: Equal air entry with bibasilar crackles, but no wheeze, rhonchi or dullness. CVS: Irregular rate and rhythm, normal S1 and S2, no gallops, positive murmur, no rubs ABDOMEN: Soft, nontender. No hepatosplenomegaly, normal bowel sounds, no guarding or rigidity. EXTREMITIES: No clubbing, significant lower extremity edema involving feet, ankles, legs, and thighs, 2+ pitting edema no cyanosis, 2+ pulses and upper and lower extremities. MUSCULOSKELETAL: Muscle strength and tone normal. SPINE: No scoliosis or deformity SKIN: No rashes, chronic diabetic wounds involving CENTRAL NERVOUS SYSTEM: No focal deficits, tone is normal in all 4 extremities. PSYCHIATRIC: Alert and oriented -3. Appropriate affect. Intact judgment and insight. - Labs CBC & Chem 7: 12/24/19 05:36 12/24/19 05:36 Labs: Abnormal Lab Results - Last 24 Hours (Table) 12/23/19 12/23/19 12/23/19 Range/Units 11:35 16:43 20:21 RBC (4.30-5.90) m/uL Hgb (13.0-17.5) gm/dL Hct (39.0-53.0) % RDW (11.5-15.5) % Plt Count (150-450) k/uL Lymphocytes # (1.0-4.8) k/uL Sodium (137-145) mmol/L Potassium (3.5-5.1) mmol/L BUN (9-20) mg/dL Glucose (74-99) mg/dL POC Glucose (mg/dL) 206 H 141 H 169 H (75-99) mg/dL Magnesium (1.6-2.3) mg/dL 12/24/19 12/24/19 12/24/19 Range/Units 05:36 05:36 06:12 RBC 3.86 L (4.30-5.90) m/uL Hgb 11.9 L (13.0-17.5) gm/dL Hct 37.0 L (39.0-53.0) % RDW 17.5 H (11.5-15.5) % Plt Count 141 L (150-450) k/uL Lymphocytes # 0.7 L (1.0-4.8) k/uL Sodium 136 L (137-145) mmol/L Potassium 3.4 L (3.5-5.1) mmol/L BUN 23 H (9-20) mg/dL Glucose 140 H (74-99) mg/dL POC Glucose (mg/dL) 166 H (75-99) mg/dL Magnesium 1.5 L (1.6-2.3) mg/dL Assessment and Plan Assessment: #1. Acute on chronic hypoxic respiratory failure related to acute exacerbation of chronic congestive heart failure with systolic dysfunction, patient's ejection fraction is between 40 and 50% #2. Coronary artery disease, with previous bypass grafting and a redo in 2013 with aortic valve replacement #3. Aortic valve disease, status post bioprosthetic valve replacement in 2013 #4. COPD, wears oxygen on as-needed basis #5. Former smoker, currently in remission #6. Diabetes mellitus type 2 #7. Hypertension #8. Hyperlipidemia #9. Chronic atrial fibrillation on Eliquis #10. 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 Song, with previous history of infection with Acinetobacter baumanii, and staph Plan: The patient was seen and evaluated by Dr. Grace. He is currently stable from the pulmonary standpoint. He remains on a Lasix drip. Diuresing well. Weight is decreasing. Edema is improving. Cardiology is considering a CROW to evaluate the status of his bioprosthetic aortic valve. We will continue with DuoNeb inhalations and Symbicort. Titrate down his FiO2 as tolerated. Increase his a ctivity as tolerated. We'll continue to follow. I, the cosigning physician, performed a history & physical examination of the patient. Lungs sounds with crackles in the bilateral posterior bases. Maintaining good O2 saturations in the 90s on 4 L/m per nasal cannula. I discussed the assessment and plan of care with my nurse practitioner, Isis Horton. I attest to the above note as dictated by her.
--- NOTE | 2019-12-24 12:52 | P.PN ---
Subjective This is Kayley Virgen PA-C dictating a progress note on this patient The patient was interviewed and examined by me as well as by Dr. Dickens Case discussed with Dr. Dickens and he agrees with the plan of care HPI/interval history Patient is an 79-year-old male with a history of CAD status post CABG, ischemic cardiomyopathy, valvular heart disease status post aortic valve replacement with bioprosthetic valve, atrial fibrillation who presented with dyspnea orthopnea and fluid overload and was admitted for treatment of heart failure exacerbation. He is awaiting a CROW to evaluate his aortic valve once his heart failure status improves. He is still on a Lasix drip. Patient seen and examined sitting up in his chair. States his breathing has improved. When he got up to wash up this morning he was not as short of breath. He still has orthopnea and had to sleep with head of the bed elevated. Denies any chest pain. Still has sig nificant lower extremity edema. No dizziness or syncope. EXAMINATION Temperature 98.2F, pulse in the 60s, respirations 18, blood pressure 112/60, oxygen saturation 94% on 4 L nasal cannula Patient seen and examined sitting in his chair, conversational dyspnea Lungs are diminished bilaterally with few scattered crackles at the bases Heart is irregular, systolic murmur noted 2+ pitting lower extremity edema Mildly elevated JVD noted REVIEW OF LABS, ECG WBC 6.5, hemoglobin 11.9, platelets 141, potassium 4.1, BUN 23, creatinine 0.86 Telemetry reveals rate-controlled atrial fibrillation IMPRESSION / ASSESSMENT: Acute on chronic congestive heart failure exacerbation secondary to systolic dys function, symptoms improving but remains short of breath and with lower extremity edema Ischemic cardiomyopathy CAD status post CABG Valvular heart disease status post aortic valve replacement using bioprosthetic valve 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 Long-standing persistent atrial fibrillation on anticoagulation with eliquis PLAN: Continue Lasix drip Increase spironolactone to 50 mg daily Continue metoprolol Continue statins Continue losartan Continue monitoring daily BMP, I and Os, daily weight Plan for CROW to evaluate aortic valve once his heart failure improves Objective - Vital Signs Vital signs: Vital Signs Temp 98.2 F 12/24/19 11:29 Pulse 65 12/24/19 11:55 Resp 18 12/24/19 11:55 BP 112/60 12/24/19 11:29 Pulse Ox 94 L 12/24/19 11:29 Intake & Output 12/23/19 12/24/19 12/24/19 18:59 06:59 18:59 Intake Total 1178.833 100 257.5 Output Total 800 2080 Balance 378.833 -1980 257.5 Weight 104.4 kg 102 kg Intake: Intake, IV Titration 98.833 100 77.5 Amount Furosemide 100 mg In 98.833 100 77.5 Sodium Chloride 0.9% 90 ml @ 10 MG/HR 10 mls/hr IV .Q10H [facility] Rx#: [id number] Oral 1080 180 Output: Urine 800 2080 Other: Voiding Method Urinal Urinal # Voids 2 2 # Bowel Movements 1 - Labs CBC & Chem 7: 12/24/19 05:36 12/24/19 05:36 Labs: Abnormal Lab Results - Last 24 Hours (Table) 12/23/19 12/23/19 12/24/19 Range/Units 16:43 20:21 05:36 RBC 3.86 L (4.30-5.90) m/uL Hgb 11.9 L (13.0-17.5) gm/dL Hct 37.0 L (39.0-53.0) % RDW 17.5 H (11.5-15.5) % Plt Count 141 L (150-450) k/uL Lymphocytes # 0.7 L (1.0-4.8) k/uL Sodium (137-145) mmol/L Potassium (3.5-5.1) mmol/L BUN (9-20) mg/dL Glucose (74-99) mg/dL POC Glucose (mg/dL) 141 H 169 H (75-99) mg/dL Magnesium (1.6-2.3) mg/dL 12/24/19 12/24/19 12/24/19 Range/Units 05:36 06:12 11:33 RBC (4.30-5.90) m/uL Hgb (13.0-17.5) gm/dL Hct (39.0-53.0) % RDW (11.5-15.5) % Plt Count (150-450) k/uL Lymphocytes # (1.0-4.8) k/uL Sodium 136 L (137-145) mmol/L Potassium 3.4 L (3.5-5.1) mmol/L BUN 23 H (9-20) mg/dL Glucose 140 H (74-99) mg/dL POC Glucose (mg/dL) 166 H 176 H (75-99) mg/dL Magnesium 1.5 L (1.6-2.3) mg/dL
[2019-12-24] MEDS: IPRATROPIUM-ALBUTEROL 3 ML NEB INHALATION SCH ×2 (15:55→19:31)
[2019-12-24 17:01] LABS: Glucose,Whole Blood 170 mg/dL (75-99)
[2019-12-24] MEDS: SYMBICORT 160-4.5 MCG INHALER INHALATION SCH (19:30)
[2019-12-24] MEDS: ATORVASTATIN 20 MG TAB PO SCH (20:17)
[2019-12-24 20:25] LABS: Glucose,Whole Blood 145 mg/dL (75-99)
--- NOTE | 2019-12-24 21:02 | P.PN ---
Subjective Progress Note Date: 12/24/19 Principal diagnosis: acute on chronic CHF with systolic dysfunction This is a pleasant 79-year-old patient of Dr. matthew. Follows with cardiology Dr. VC Almonte. Chronic stable medical conditions include coronary artery disease with bypass 2 with a redo in 2014 with aortic valve replacement, ischemic cardiomyopathy and atrial fibrillation. Also patient's stable condition to diabetes, hyperlipidemia, hypertension. Patient's been getting short of breath progressively over. Her time now much getting much worse. Increasing edema. Patient has orthopnea. He was sleeps up in a recliner. Patient also good wounds of the left leg and [facility] before per Dr. jernigan. Denies any fever and chills. Appetite is okay. Center from the office of Dr. VC Almonte. Admitted with acute CHF exacerbation. Started on IV Lasix drip. 12/23-on IV Lasix drip. Diuresing. We'll initiate better. Family the bedside. Did tolerate some diet. 12/24/2019 patient is currently on Lasix drip. Shortness of breath is much improved. currently sitting in the chair comfortably. Still having bilateral lower extremityswellingand shortness of breath when lying flat Denied any chest pain. No headache or dizziness or lightheadedness.. Cardiology is planning for CROW TO EVALUATE aortic valve once acute CHF symptoms improves. potassium 3.4 which is being replaced. Cardiology is following. Review of systems: Was done for constitutional, cardiovascular, GI, pulmonary. relevant finding as above. current medications reviewed. Objective - Vital Signs Vital signs: Vital Signs Temp 98.2 F 12/24/19 11:29 Pulse 65 12/24/19 11:55 Resp 18 12/24/19 11:55 BP 112/60 12/24/19 11:29 Pulse Ox 94 L 12/24/19 11:29 Intake & Output 12/23/19 12/24/19 12/24/19 18:59 06:59 18:59 Intake Total 1178.833 100 257.5 Output Total 800 2080 Balance 378.833 -1979 257.5 Weight 104.4 kg 102 kg Intake: Intake, IV Titration 98.833 100 77.5 Amount Furosemide 100 mg In 98.833 100 77.5 Sodium Chloride 0.9% 90 ml @ 10 MG/HR 10 mls/hr IV .Q10H [facility] Rx#: [id number] Oral 1080 180 Output: Urine 800 2080 Other: Voiding Method Urinal Urinal # Voids 2 2 # Bowel Movements 1 - Exam GENERAL: BMI 33, sitting at the edge of the bed, a bit less short of breath. EYES: Pupils equal. Conjunctiva normal. HEENT: External appearance of nose and ears normal, oral cavity grossly normal. NECK: JVD raised; masses not palpable. HEART: First and second heart sounds are normal; significant edema present. LUNGS:[ Respiratory rate increased, not able to speak in full sentences; bi lateral crackles ABDOMEN: Soft, nontender slightly distended, liver spleen not palpable, no masses palpable. PSYCH: Alert and oriented x3; mood and affect normal. EXTREMITIES: Dressing over the left leg - Labs CBC & Chem 7: 12/24/19 05:36 12/24/19 05:36 Labs: Abnormal Lab Results - Last 24 Hours (Table) 12/23/19 12/23/19 12/24/19 Range/Units 16:43 20:21 05:36 RBC 3.86 L (4.30-5.90) m/uL Hgb 11.9 L (13.0-17.5) gm/dL Hct 37.0 L (39.0-53.0) % RDW 17.5 H (11.5-15.5) % Plt Count 141 L (150-450) k/uL Lymphocytes # 0.7 L (1.0-4.8) k/uL Sodium (137-145) mmol/L Potassium (3.5-5.1) mmol/L BUN (9-20) mg/dL Glucose (74-99) mg/dL POC Glucose (mg/dL) 141 H 169 H (75-99) mg/dL Magnesium (1.6-2.3) mg/dL 12/24/19 12/24/19 12/24/19 Range/Units 05:36 06:12 11:33 RBC (4.30-5.90) m/uL Hgb (13.0-17.5) gm/dL Hct (39.0-53.0) % RDW (11.5-15.5) % Plt Count (150-450) k/uL Lymphocytes # (1.0-4.8) k/uL Sodium 136 L (137-145) mmol/L Potassium 3.4 L (3.5-5.1) mmol/L BUN 23 H (9-20) mg/dL Glucose 140 H (74-99) mg/dL POC Glucose (mg/dL) 166 H 176 H (75-99) mg/dL Magnesium 1.5 L (1.6-2.3) mg/dL Assessment and Plan Assessment: -Acute on chronic congestive heart failure exacerbation with systolic dysfunction. -Ischemic cardiomyopathy -history of bioprosthetic aortic valve replacement -Diabetes mellitus type 2, uncontrolled with hyperglycemia -Persistent atrial fibrillation on eliquis -Hyperlipidemia -Essential hypertension -Coronary artery disease with a prior history of bypass 2 -Obesity BMI 33 -Left leg wound type unknown, gets dressing of the wound care center by Dr. jernigan Plan: Continue with IV Lasix drip. Other medications to continue. Discussed with the patient and family. Follow electrolytes closely. cardiology is planning for CROW to assess prosthetic valve/ possible stenosis. Time with Patient: Greater than 30
[2019-12-24] MEDS ORDERED: Potassium Replacement Protocol 1 EACH MISC MISCELLANE PRN (22:19)
[2019-12-24] MEDS ORDERED: Magnesium Replacement Protocol 1 EACH MISC MISCELLANE PRN (22:19)
[2019-12-24] MEDS: MELATONIN 3 MG TABLET PO PRN (22:53)
[2019-12-25 06:22] LABS: Glucose,Whole Blood 131 mg/dL (75-99)
[2019-12-25 06:24] LABS: Anisocytosis Slight; Basophils % (A) 0 %; Eosinophils # (A) 0.2 k/uL (0-0.7); Eosinophils % (A) 3 %; HCT 37.6 % (39.0-53.0); HGB 12.1 gm/dL (13.0-17.5); Hypochromasia Slight; Lymphocytes # (A) 0.8 k/uL (1.0-4.8); Lymphocytes % (A) 12 %; MCH 31.2 pg (25.0-35.0); MCHC 32.2 g/dL (31.0-37.0); MCV 96.7 fL (80.0-100.0); Macrocytosis Slight; Mean Platelet Volume 9.2; Monocytes # (A) 0.4 k/uL (0-1.0); Monocytes % (A) 6 %; Neutrophils # (A) 4.8 k/uL (1.3-7.7); Neutrophils % (A) 78 %; Platelet Count 132 k/uL (150-450); Poikilocytosis Slight; RBC 3.89 m/uL (4.30-5.90); RDW 17.3 % (11.5-15.5); WBC 6.2 k/uL (3.8-10.6)
[2019-12-25 06:36] LABS: Calcium 8.8 mg/dL (8.4-10.2); Potassium 3.9 mmol/L (3.5-5.1)
[2019-12-25] MEDS: FUROSEMIDE 100 MG in SODIUM CHLORIDE 0.9% 90 ML IV SCH (06:52)
[2019-12-25] MEDS: INSULIN ASPART (NovoLOG) 100 UNIT/ML VIAL SQ SCH ×4 (06:54→21:14)
[2019-12-25] MEDS: LEVOFLOXACIN 500 MG TAB PO SCH (07:34)
[2019-12-25] MEDS: metFORMIN 500 MG TAB PO SCH ×2 (07:35→21:13)
[2019-12-25] MEDS: METOPROLOL SUCCINATE (ER) 25 MG TAB.ER.24H PO SCH (07:35)
[2019-12-25] MEDS: LOSARTAN 50 MG TAB PO SCH (07:35)
[2019-12-25] MEDS ORDERED: NON FORMULARY DRUG PO ONE (07:35)
[2019-12-25] MEDS: APIXABAN 5 MG TAB PO SCH ×2 (07:35→21:13)
[2019-12-25] MEDS: ACETAMINOPHEN TAB 325 MG TAB PO PRN ×2 (07:45→14:44)
[2019-12-25] MEDS: IPRATROPIUM-ALBUTEROL 3 ML NEB INHALATION SCH ×3 (08:11→20:08)
[2019-12-25] MEDS: SYMBICORT 160-4.5 MCG INHALER INHALATION SCH ×2 (08:12→20:08)
[2019-12-25] MEDS ORDERED: SPIRONOLACTONE 25 MG TAB PO SCH (09:00)
--- NOTE | 2019-12-25 11:54 | P.PN ---
Subjective Progress Note Date: 12/25/19 Principal diagnosis: Dyspnea, increased lower extremity edema 79-year-old white male patient with past medical history of COPD, chronic congestive heart failure with previously documented preserved left ventricular systolic function, valvular heart disease status post aortic valve replacement with a bioprosthetic valve, coronary artery disease status post bypass grafting, chronic atrial fibrillation on Eliquis, diabetes mellitus type 2, ischemic cardiomyopathy, who came into the hospital on 2019 for evaluation of worsening dyspnea and increased swelling in his lower extremities, patient was complaining of increased exertional dyspnea, he could hardly walk a few feet without being significantly short of breath. Denied any chest pain. Denied any coughing or wheezing, denied any fever or phlegm production, no chills. He thinks his COPD is under good control right now, he has home oxygen and only wears it on as-needed basis and at bedtime. Chest x-ray showed chronic emphysematous changes and cardiomegaly without new suspicious acute pulmonary process. His lab work on admission showed sodium of 139, potassium is 4.5, chloride is 104, CO2 is 21, BUN is 34 creatinine is 1.14, venous blood gases were completed showing bicarb 23, pCO2 37, pH of 7.40, proBNP was 5740. No leukocytosis white blood cell count 7.5, hemoglobin is 12.6. Patient was in significant fluid overload, he was started on Lasix drip at 10 mg per hour, patient is in -1621 mL fluid balance over the last 24 hours, still has significant amount of pitting edema in his lower extremities up to his thighs. Cardiology is following and is planning on CROW to check on the status of the bio prosthetic valve. In addition patient has chronic lower extremity diabetic wounds for which he follows at the wound care center under the care of Dr. Song. His COPD seems to be stable at this time, with no significant coughing wheezing or congestion, he is on no maintenance of Symbicort, and DuoNeb on a regular basis. He is on Levaquin for empiric antibiotic coverage. We are asked to see the patient in consultation for acute on chronic dyspnea which seems to be exacerbated by CHF exacerbation. The patient is seen today 12/24/2019 in follow-up on the selective care unit. He is currently sitting up in a chair at the bedside. Awake and alert in no acute distress. He denies any worsening shortness of breath, cough or congestion. Currently maintaining O2 saturations in the low 90s on 4 L/m per nasal cannula. Afebrile. Hemodynamically stable. White count 6.5. Hemoglobin 11.9. Sodium 136. Potassium 3.4. Creatinine 0.86. He remains on a Lasix drip at 10 mg per hour. Anticoagulated with Eliquis. He is currently in a -1320 ML balance. Weight down to 102 kg. The patient is seen today 12/25/2019 in follow-up on the selective care unit. He is awake and alert in no acute distress. Breathing better today compared to yesterday. Continued on a Lasix drip at 10 mg per hour. He has decreased swelling of lower extremities. He is maintaining O2 saturation in the 90s on 3 L/m per nasal cannula. His been afebrile. Hemodynamically stable. Remains in a negative balance. His weight is 101.6 kg. White count 6.2. Hemoglobin 12.1. Sodium 136. Potassium 3.9. Bicarb 31. Creatinine 1.02. Objective - Vital Signs Vital signs: Vital Signs Temp 98 F 12/25/19 07:33 Pulse 77 12/25/19 08:21 Resp 18 12/25/19 07:33 BP 118/67 12/25/19 07:33 Pulse Ox 94 L 12/25/19 07:33 Intake & Output 12/24/19 12/25/19 12/25/19 18:59 06:59 18:59 Intake Total 717.5 650 180 Output Total 800 2390 250 Balance -82.5 -1740 -70 Weight 101.6 kg Intake: Intake, IV Titration 177.5 Amount Furosemide 100 mg In 177.5 Sodium Chloride 0.9% 90 ml @ 10 MG/HR 10 mls/hr IV .Q10H [facility] Rx#: [id number] Oral 540 650 180 Output: Urine 800 2390 250 Other: Voiding Method Urinal # Voids 2 2 - Exam GENERAL EXAM: Alert, very pleasant, 79-year-old male patient on 3 L of oxygen with a pulse ox of 94%, comfortable in no apparent distress. HEAD: Normocephalic/atraumatic. EYES: Normal reaction of pupils, equal size. Conjunctiva pink, sclera white. NOSE: Clear with pink turbinates. THROAT: No erythema or exudates. NECK: No masses, no JVD, no thyroid enlargement, no adenopathy. CHEST: No chest wall deformity. Symmetrical expansion. LUNGS: Equal air entry with bibasilar crackles, but no wheeze, rhonchi or dullness. CVS: Irregular rate and rhythm, normal S1 and S2, no gallops, positive murmur, no rubs ABDOMEN: Soft, nontender. No hepatosplenomegaly, normal bowel sounds, no gu arding or rigidity. EXTREMITIES: No clubbing, improving lower extremity edema involving feet, ankles , legs, and thighs, 1+ pitting edema no cyanosis, 2+ pulses and upper and lower extremities. MUSCULOSKELETAL: Muscle strength and tone normal. SPINE: No scoliosis or deformity SKIN: No rashes, chronic diabetic wounds involving CENTRAL NERVOUS SYSTEM: No focal deficits, tone is normal in all 4 extremities. PSYCHIATRIC: Alert and oriented -3. Appropriate affect. Intact judgment and insight. - Labs CBC & Chem 7: 12/25/19 05:21 12/25/19 05:21 Labs: Abnormal Lab Results - Last 24 Hours (Table) 12/24/19 12/24/19 12/25/19 Range/Units 17:00 20:24 05:21 RBC 3.89 L (4.30-5.90) m/uL Hgb 12.1 L (13.0-17.5) gm/dL Hct 37.6 L (39.0-53.0) % RDW 17.3 H (11.5-15.5) % Plt Count 132 L (150-450) k/uL Lymphocytes # 0.8 L (1.0-4.8) k/uL Sodium (137-145) mmol/L Chloride (98-107) mmol/L Carbon Dioxide (22-30) mmol/L BUN (9-20) mg/dL Glucose (74-99) mg/dL POC Glucose (mg/dL) 170 H 145 H (75-99) mg/dL Magnesium (1.6-2.3) mg/dL 12/25/19 12/25/19 12/25/19 Range/Units 05:21 05:21 06:18 RBC (4.30-5.90) m/uL Hgb (13.0-17.5) gm/dL Hct (39.0-53.0) % RDW (11.5-15.5) % Plt Count (150-450) k/uL Lymphocytes # (1.0-4.8) k/uL Sodium 136 L (137-145) mmol/L Chloride 97 L (98-107) mmol/L Carbon Dioxide 31 H (22-30) mmol/L BUN 25 H (9-20) mg/dL Glucose 141 H (74-99) mg/dL POC Glucose (mg/dL) 131 H (75-99) mg/dL Magnesium 1.5 L (1.6-2.3) mg/dL Assessment and Plan Assessment: #1. Acute on chronic hypoxic respiratory failure related to acute exacerbation of chronic congestive heart failure with systolic dysfunction, patient's ejection fraction is between 40 and 50% #2. Coronary artery disease, with previous bypass grafting and a redo in 2013 with aortic valve replacement #3. Aortic valve disease, status post bioprosthetic valve replacement in 2013 #4. COPD, wears oxygen on as-needed basis #5. Former smoker, currently in remission #6. Diabetes mellitus type 2 #7. Hypertension #8. Hyperlipidemia #9. Chronic atrial fibrillation on Eliquis #10. 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 Song, with previous history of infection with Acinetobacter baumanii, and staph Plan: The patient was seen and evaluated by Dr. Grace. Follow-up chest x-ray pending. He remains on a Lasix drip. Diuresing well. Weight is decreasing. Edema is improving. Plan is for a CROW to evaluate the status of his bioprosthetic aortic valve. Titrate down his FiO2 as tolerated. Increase his activity as tolerated. We'll continue to follow. I, the cosigning physician, performed a history & physical examination of the patient. Lungs sounds with crackles in the bilateral posterior bases. Maintaining good O2 saturations in the 90s on 3 L/m per nasal cannula. I discussed the assessment and plan of care with my nurse practitioner, Isis Horton. I attest to the above note as dictated by her.
[2019-12-25 12:25] LABS: Glucose,Whole Blood 179 mg/dL (75-99)
--- NOTE | 2019-12-25 12:36 | P.PN ---
Subjective This is Kayley Virgen PA-C dictating a progress note on this patient The patient was interviewed and examined by me as well as by Dr. Dickens Case discussed with Dr. Dickens and he agrees with the plan of care HPI/interval history Patient is an 79-year-old male with a history of CAD status post CABG, ischemic cardiomyopathy, valvular heart disease status post aortic valve replacement with bioprosthetic valve, atrial fibrillation who presented with dyspnea orthopnea and fluid overload and was admitted for treatment of heart failure exacerbation. He is awaiting a CROW to evaluate his aortic valve once his heart failure status improves. He has been on a Lasix drip. Patient seen and examined lying in bed. Appears to be breathing more comfortably today. States his breathing has improved and he is able to breathe more comfortably lying down. No chest pain. EXAMINATION Patient is afebrile, pulse in the 90s, respirations 18, blood pressure 102/56, oxygen saturation 91% on 3 L nasal cannula Patient seen and examined resting in bed, appears comfortable Lungs are diminished bilaterally Heart is irregular, systolic murmur audible Mild lower extremity edema bilaterally REVIEW OF LABS, ECG WBC 6.2, hemoglobin 12.1, platelets 132, potassium 3.9, BUN 25, creatinine 1.02 Telemetry reveals rate-controlled atrial fibrillation IMPRESSION / ASSESSMENT: Acute on chronic congestive heart failure exacerbation secondary to systolic dysfunction, symptoms improving, diuresing well Ischemic cardiomyopathy CAD status post CABG Valvular heart disease status post aortic valve replacement using bioprosthetic valve 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 Long-standing persistent atrial fibrillation on anticoagulation with eliquis PLAN: stop lasix drip and switched to IV Lasix 80 mg twice a day We will keep him nothing by mouth tonight and if he is stable from a heart failure standpoint tomorrow morning we will schedule him for CROW to reevaluate his valve Continue eliquis, atorvastatin, metoprolol, losartan, and spironolactone Objective - Vital Signs Vital signs: Vital Signs Temp 97.7 F 12/25/19 12:00 Pulse 92 12/25/19 12:00 Resp 18 12/25/19 12:00 BP 102/56 12/25/19 12:00 Pulse Ox 91 L 12/25/19 12:00 Intake & Output 12/24/19 12/25/19 12/25/19 18:59 06:59 18:59 Intake Total 717.5 650 180 Output Total 800 2390 800 Balance -82.5 -1740 -620 Weight 101.6 kg Intake: Intake, IV Titration 177.5 Amount Furosemide 100 mg In 177.5 Sodium Chloride 0.9% 90 ml @ 10 MG/HR 10 mls/hr IV .Q10H [facility] Rx#: [id number] Oral 540 650 180 Output: Urine 800 2390 800 Other: Voiding Method Urinal # Voids 2 2 - Labs CBC & Chem 7: 12/25/19 05:21 12/25/19 05:21 Labs: Abnormal Lab Results - Last 24 Hours (Table) 12/24/19 12/24/19 12/25/19 Range/Units 17:00 20:24 05:21 RBC 3.89 L (4.30-5.90) m/uL Hgb 12.1 L (13.0-17.5) gm/dL Hct 37.6 L (39.0-53.0) % RDW 17.3 H (11.5-15.5) % Plt Count 132 L (150-450) k/uL Lymphocytes # 0.8 L (1.0-4.8) k/uL Sodium (137-145) mmol/L Chloride (98-107) mmol/L Carbon Dioxide (22-30) mmol/L BUN (9-20) mg/dL Glucose (74-99) mg/dL POC Glucose (mg/dL) 170 H 145 H (75-99) mg/dL Magnesium (1.6-2.3) mg/dL 12/25/19 12/25/19 12/25/19 Range/Units 05:21 05:21 06:18 RBC (4.30-5.90) m/uL Hgb (13.0-17.5) gm/dL Hct (39.0-53.0) % RDW (11.5-15.5) % Plt Count (150-450) k/uL Lymphocytes # (1.0-4.8) k/uL Sodium 136 L (137-145) mmol/L Chloride 97 L (98-107) mmol/L Carbon Dioxide 31 H (22-30) mmol/L BUN 25 H (9-20) mg/dL Glucose 141 H (74-99) mg/dL POC Glucose (mg/dL) 131 H (75-99) mg/dL Magnesium 1.5 L (1.6-2.3) mg/dL 12/25/19 Range/Units 12:24 RBC (4.30-5.90) m/uL Hgb (13.0-17.5) gm/dL Hct (39.0-53.0) % RDW (11.5-15.5) % Plt Count (150-450) k/uL Lymphocytes # (1.0-4.8) k/uL Sodium (137-145) mmol/L Chloride (98-107) mmol/L Carbon Dioxide (22-30) mmol/L BUN (9-20) mg/dL Glucose (74-99) mg/dL POC Glucose (mg/dL) 179 H (75-99) mg/dL Magnesium (1.6-2.3) mg/dL
--- NOTE | 2019-12-25 13:14 | XR ---
EXAMINATION TYPE: XR chest 1V portable DATE OF EXAM: 12/25/2019 HISTORY: CHF. REFERENCE: Previous study dated 12/22/2019. FINDINGS: There has been a midline sternotomy. The heart is enlarged. There is mild vascular congesti on and increased interstitial change. There are small, bilateral effusions. IMPRESSION: SUBTLE CHANGES OF PULMONARY EDEMA.
[2019-12-25] MEDS ORDERED: HYDROcodone/APAP 5-325MG 1 EACH TAB PO STA (16:30)
[2019-12-25 17:16] LABS: Glucose,Whole Blood 123 mg/dL (75-99)
[2019-12-25 20:44] LABS: Glucose,Whole Blood 169 mg/dL (75-99)
[2019-12-25] MEDS: FUROSEMIDE 10 MG/ML 10 ML VIAL IV SCH (21:13)
[2019-12-25] MEDS: ATORVASTATIN 20 MG TAB PO SCH (21:13)
[2019-12-25] MEDS: MAGNESIUM SULFATE-D5W PMX 1 GM in DEXTROSE/WATER 1 100ML.BAG IVPB SCH ×2 (21:14→22:22)
[2019-12-25] MEDS: SPIRONOLACTONE 25 MG TAB PO SCH (21:14)
--- NOTE | 2019-12-25 21:21 | P.PN ---
Subjective Progress Note Date: 12/25/19 Principal diagnosis: acute on chronic CHF with systolic dysfunction This is a pleasant 79-year-old patient of Dr. matthew. Follows with cardiology Dr. VC Almonte. Chronic stable medical conditions include coronary artery disease with bypass 2 with a redo in 2014 with aortic valve replacement, ischemic cardiomyopathy and atrial fibrillation. Also patient's stable condition to diabetes, hyperlipidemia, hypertension. Patient's been getting short of breath progressively over. Her time now much getting much worse. Increasing edema. Patient has orthopnea. He was sleeps up in a recliner. Patient also good wounds of the left leg and [facility] before per Dr. jernigan. Denies any fever and chills. Appetite is okay. Center from the office of Dr. VC Almonte. Admitted with acute CHF exacerbation. Started on IV Lasix drip. 12/23-on IV Lasix drip. Diuresing. We'll initiate better. Family the bedside. Did tolerate some diet. 12/24/2019 patient is currently on Lasix drip. Shortness of breath is much improved. currently sitting in the chair comfortably. Still having bilateral lower extremityswellingand shortness of breath when lying flat Denied any chest pain. No headache or dizziness or lightheadedness.. Cardiology is planning for CROW TO EVALUATE aortic valve once acute CHF symptoms improves. potassium 3.4 which is being replaced. Cardiology is following. 12/25/2019 Patient is currently sitting in the chair comfortably. Still having significant bilateral lower action to swelling. Patient was continued on Lasix drip. Currently changed to Lasix IV push 80 mg every 12. Patient is scheduled for CROW tomorrow morning. renal function is stable. magnesium 1.5 which is being replaced. Review of systems: Was done for constitutional, cardiovascular, GI, pulmonary. relevant finding as above. current medications reviewed. Objective - Vital Signs Vital signs: Vital Signs Temp 97.7 F 12/25/19 12:00 Pulse 80 12/25/19 13:21 Resp 18 12/25/19 12:00 BP 102/56 12/25/19 12:00 Pulse Ox 91 L 12/25/19 12:00 Intake & Output 12/24/19 12/25/19 12/25/19 18:59 06:59 18:59 Intake Total 717.5 650 180 Output Total 800 2390 800 Balance -82.5 -1740 -620 Weight 101.6 kg Intake: Intake, IV Titration 177.5 Amount Furosemide 100 mg In 177.5 Sodium Chloride 0.9% 90 ml @ 10 MG/HR 10 mls/hr IV .Q10H [facility] Rx#: [id number] Oral 540 650 180 Output: Urine 800 2390 800 Other: Voiding Method Urinal # Voids 2 2 - Exam GENERAL: BMI 33, sitting at the edge of the bed, a bit less short of breath. EYES: Pupils equal. Conjunctiva normal. HEENT: External appearance of nose and ears normal, oral cavity grossly normal. NECK: JVD raised; masses not palpable. HEART: First and second heart sounds are normal; significant edema present. LUNGS:[ Respiratory rate increased, not able to speak in full sentences; bilateral crackles ABDOMEN: Soft, nontender slightly distended, liver spleen not palpable, no masses palpable. PSYCH: Alert and oriented x3; mood and affect normal. EXTREMITIES: Lloyd wrap over the left leg. 2+ bilateral pedal edema. - Labs CBC & Chem 7: 12/25/19 05:21 12/25/19 05:21 Labs: Abnormal Lab Results - Last 24 Hours (Table) 12/24/19 12/24/19 12/25/19 Range/Units 17:00 20:24 05:21 RBC 3.89 L (4.30-5.90) m/uL Hgb 12.1 L (13.0-17.5) gm/dL Hct 37.6 L (39.0-53.0) % RDW 17.3 H (11.5-15.5) % Plt Count 132 L (150-450) k/uL Lymphocytes # 0.8 L (1.0-4.8) k/uL Sodium (137-145) mmol/L Chloride (98-107) mmol/L Carbon Dioxide (22-30) mmol/L BUN (9-20) mg/dL Glucose (74-99) mg/dL POC Glucose (mg/dL) 170 H 145 H (75-99) mg/dL Magnesium (1.6-2.3) mg/dL 12/25/19 12/25/19 12/25/19 Range/Units 05:21 05:21 06:18 RBC (4.30-5.90) m/uL Hgb (13.0-17.5) gm/dL Hct (39.0-53.0) % RDW (11.5-15.5) % Plt Count (150-450) k/uL Lymphocytes # (1.0-4.8) k/uL Sodium 136 L (137-145) mmol/L Chloride 97 L (98-107) mmol/L Carbon Dioxide 31 H (22-30) mmol/L BUN 25 H (9-20) mg/dL Glucose 141 H (74-99) mg/dL POC Glucose (mg/dL) 131 H (75-99) mg/dL Magnesium 1.5 L (1.6-2.3) mg/dL 12/25/19 Range/Units 12:24 RBC (4.30-5.90) m/uL Hgb (13.0-17.5) gm/dL Hct (39.0-53.0) % RDW (11.5-15.5) % Plt Count (150-450) k/uL Lymphocytes # (1.0-4.8) k/uL Sodium (137-145) mmol/L Chloride (98-107) mmol/L Carbon Dioxide (22-30) mmol/L BUN (9-20) mg/dL Glucose (74-99) mg/dL POC Glucose (mg/dL) 179 H (75-99) mg/dL Magnesium (1.6-2.3) mg/dL Assessment and Plan Assessment: -Acute on chronic congestive heart failure exacerbation with systolic dysfunction. -Ischemic cardiomyopathy -history of bioprosthetic aortic valve replacement -Diabetes mellitus type 2, uncontrolled with hyperglycemia -Persistent atrial fibrillation on eliquis -Hyperlipidemia -Essential hypertension -Coronary artery disease with a prior history of bypass 2 -Obesity BMI 33 -Left leg wound type unknown, gets dressing of the wound care center by Dr. jernigan Plan: Continued with IV Lasix drip. changed to Lasix 80 mg IV every 12 today. Other medications to continue. Discussed with the patient and family. Follow electrolytes closely. cardiology is planning for CROW to assess prosthetic valve/ possible stenosis. Time with Patient: Greater than 30
[2019-12-26 06:11] LABS: Glucose,Whole Blood 141 mg/dL (75-99)
[2019-12-26] MEDS: INSULIN ASPART (NovoLOG) 100 UNIT/ML VIAL SQ SCH ×4 (06:31→21:22)
[2019-12-26 06:43] LABS: Anisocytosis Slight; Basophils % (A) 1 %; Eosinophils # (A) 0.2 k/uL (0-0.7); Eosinophils % (A) 3 %; HCT 37.2 % (39.0-53.0); HGB 11.9 gm/dL (13.0-17.5); Hypochromasia Slight; Lymphocytes # (A) 0.6 k/uL (1.0-4.8); Lymphocytes % (A) 10 %; MCH 31.3 pg (25.0-35.0); MCV 97.9 fL (80.0-100.0); Macrocytosis Slight; Mean Platelet Volume 9.3; Monocytes # (A) 0.4 k/uL (0-1.0); Monocytes % (A) 6 %; Neutrophils # (A) 4.8 k/uL (1.3-7.7); Neutrophils % (A) 79 %; Platelet Count 131 k/uL (150-450); Poikilocytosis Slight; RBC 3.79 m/uL (4.30-5.90); RDW 17.1 % (11.5-15.5); WBC 6.1 k/uL (3.8-10.6)
[2019-12-26 06:49] LABS: Calcium 8.9 mg/dL (8.4-10.2); Magnesium 1.9 mg/dL (1.6-2.3); Potassium 3.5 mmol/L (3.5-5.1)
[2019-12-26] MEDS: FUROSEMIDE 10 MG/ML 10 ML VIAL IV SCH ×2 (08:47→21:22)
[2019-12-26] MEDS: METOPROLOL SUCCINATE (ER) 25 MG TAB.ER.24H PO SCH (08:48)
[2019-12-26] MEDS: SPIRONOLACTONE 25 MG TAB PO SCH ×2 (08:48→20:28)
[2019-12-26] MEDS: APIXABAN 5 MG TAB PO SCH ×2 (08:48→20:28)
[2019-12-26] MEDS: LOSARTAN 50 MG TAB PO SCH (08:48)
[2019-12-26] MEDS: LEVOFLOXACIN 500 MG TAB PO SCH (08:48)
[2019-12-26] MEDS: metFORMIN 500 MG TAB PO SCH ×2 (08:48→20:28)
[2019-12-26] MEDS ORDERED: NON FORMULARY DRUG PO ONE (08:48)
[2019-12-26] MEDS: IPRATROPIUM-ALBUTEROL 3 ML NEB INHALATION SCH ×4 (09:00→20:30)
[2019-12-26] MEDS: SYMBICORT 160-4.5 MCG INHALER INHALATION SCH ×2 (09:00→20:30)
[2019-12-26 11:50] LABS: Glucose,Whole Blood 189 mg/dL (75-99)
--- NOTE | 2019-12-26 13:14 | P.PN ---
Subjective Progress Note Date: 12/26/19 Principal diagnosis: Dyspnea, increased lower extremity edema 79-year-old white male patient with past medical history of COPD, chronic congestive heart failure with previously documented preserved left ventricular systolic function, valvular heart disease status post aortic valve replacement with a bioprosthetic valve, coronary artery disease status post bypass grafting, chronic atrial fibrillation on Eliquis, diabetes mellitus type 2, ischemic cardiomyopathy, who came into the hospital on 2019 for evaluation of worsening dyspnea and increased swelling in his lower extremities, patient was complaining of increased exertional dyspnea, he could hardly walk a few feet without being significantly short of breath. Denied any chest pain. Denied any coughing or wheezing, denied any fever or phlegm production, no chills. He thinks his COPD is under good control right now, he has home oxygen and only wears it on as-needed basis and at bedtime. Chest x-ray showed chronic emphysematous changes and cardiomegaly without new suspicious acute pulmonary process. His lab work on admission showed sodium of 139, potassium is 4.5, chloride is 104, CO2 is 21, BUN is 34 creatinine is 1.14, venous blood gases were completed showing bicarb 23, pCO2 37, pH of 7.40, proBNP was 5740. No leukocytosis white blood cell count 7.5, hemoglobin is 12.6. Patient was in significant fluid overload, he was started on Lasix drip at 10 mg per hour, patient is in -1621 mL fluid balance over the last 24 hours, still has significant amount of pitting edema in his lower extremities up to his thighs. Cardiology is following and is planning on CROW to check on the status of the bio prosthetic valve. In addition patient has chronic lower extremity diabetic wounds for which he follows at the wound care center under the care of Dr. Song. His COPD seems to be stable at this time, with no significant coughing wheezing or congestion, he is on no maintenance of Symbicort, and DuoNeb on a regular basis. He is on Levaquin for empiric antibiotic coverage. We are asked to see the patient in consultation for acute on chronic dyspnea which seems to be exacerbated by CHF exacerbation. The patient is seen today 12/24/2019 in follow-up on the selective care unit. He is currently sitting up in a chair at the bedside. Awake and alert in no acute distress. He denies any worsening shortness of breath, cough or congestion. Currently maintaining O2 saturations in the low 90s on 4 L/m per nasal cannula. Afebrile. Hemodynamically stable. White count 6.5. Hemoglobin 11.9. Sodium 136. Potassium 3.4. Creatinine 0.86. He remains on a Lasix drip at 10 mg per hour. Anticoagulated with Eliquis. He is currently in a -1320 ML balance. Weight down to 102 kg. The patient is seen today 12/25/2019 in follow-up on the selective care unit. He is awake and alert in no acute distress. Breathing better today compared to yesterday. Continued on a Lasix drip at 10 mg per hour. He has decreased swelling of lower extremities. He is maintaining O2 saturation in the 90s on 3 L/m per nasal cannula. His been afebrile. Hemodynamically stable. Remains in a negative balance. His weight is 101.6 kg. White count 6.2. Hemoglobin 12.1. Sodium 136. Potassium 3.9. Bicarb 31. Creatinine 1.02. The patient is seen today 12/26/2019 in follow-up on the selective care unit. He is currently sitting up in a chair at the bedside. Awake and alert in no acute distress. He is maintaining O2 saturation in the 90s on 3 L/m per nasal cannula. She's afebrile. Hemodynamically stable. White count 6.1. Hemoglobin 11.9. Sodium 135. Potassium 3.5. Creatinine 0.99. He is continued on DuoNeb inhalations, Symbicort, antibiotics in the form of Levaquin. He is on Lasix 80 mg IV every 12 hours now. Objective - Vital Signs Vital signs: Vital Signs Temp 97.4 F L 12/26/19 11:54 Pulse 88 12/26/19 11:54 Resp 20 12/26/19 11:54 BP 116/60 12/26/19 11:54 Pulse Ox 94 L 12/26/19 11:54 Intake & Output 12/25/19 12/26/19 12/26/19 18:59 06:59 18:59 Intake Total 360 540 Output Total 1250 1910 1700 Balance -890 -1370 -1700 Weight 102.2 kg 102.2 kg Intake: Oral 360 540 Output: Urine 1250 1910 1700 Other: Voiding Method Urinal # Voids 2 - Exam GENERAL EXAM: Alert, very pleasant, 79-year-old male patient on 3 L of oxygen with a pulse ox of 94%, comfortable in no apparent distress. HEAD: Normocephalic/atraumatic. EYES: Normal reaction of pupils, equal size. Conjunctiva pink, sclera white. NOSE: Clear with pink turbinates. THROAT: No erythema or exudates. NECK: No masses, no JVD, no thyroid enlargement, no adenopathy. CHEST: No chest wall deformity. Symmetrical expansion. LUNGS: Equal air entry with bibasilar crackles, but no wheeze, rhonchi or dullness. CVS: Irregular rate and rhythm, normal S1 and S2, no gallops, positive murmur, no rubs ABDOMEN: Soft, nontender. No hepatosplenomegaly, normal bowel sounds, no guarding or rigidity. EXTREMITIES: No clubbing, improving lower extremity edema involving feet, ankles, legs, and thighs, 1+ pitting edema no cyanosis, 2+ pulses and upper and lower extremities. MUSCULOSKELETAL: Muscle strength and tone normal. SPINE: No scoliosis or deformity SKIN: No rashes, chronic diabetic wounds involving CENTRAL NERVOUS SYSTEM: No focal deficits, tone is normal in all 4 extremities. PSYCHIATRIC: Alert and oriented -3. Appropriate affect. Intact judgment and insight. - Labs CBC & Chem 7: 12/26/19 06:05 12/26/19 06:05 Labs: Abnormal Lab Results - Last 24 Hours (Table) 12/25/19 12/25/19 12/26/19 Range/Units 17:14 20:43 06:05 RBC (4.30-5.90) m/uL Hgb (13.0-17.5) gm/dL Hct (39.0-53.0) % RDW (11.5-15.5) % Plt Count (150-450) k/uL Lymphocytes # (1.0-4.8) k/uL Sodium 135 L (137-145) mmol/L Chloride 96 L (98-107) mmol/L BUN 29 H (9-20) mg/dL Glucose 139 H (74-99) mg/dL POC Glucose (mg/dL) 123 H 169 H (75-99) mg/dL 12/26/19 12/26/19 12/26/19 Range/Units 06:05 06:10 11:47 RBC 3.79 L (4.30-5.90) m/uL Hgb 11.9 L (13.0-17.5) gm/dL Hct 37.2 L (39.0-53.0) % RDW 17.1 H (11.5-15.5) % Plt Count 131 L (150-450) k/uL Lymphocytes # 0.6 L (1.0-4.8) k/uL Sodium (137-145) mmol/L Chloride (98-107) mmol/L BUN (9-20) mg/dL Glucose (74-99) mg/dL POC Glucose (mg/dL) 141 H 189 H (75-99) mg/dL Assessment and Plan Assessment: #1. Acute on chronic hypoxic respiratory failure related to acute exacerbation of chronic congestive heart failure with systolic dysfunction, patient's ejection fraction is between 40 and 50% #2. Coronary artery disease, with previous bypass grafting and a redo in 2013 with aortic valve replacement #3. Aortic valve disease, status post bioprosthetic valve replacement in 2013, the plan is for CROW on 12/27/2019 #4. COPD, wears oxygen on as-needed basis #5. Former smoker, currently in remission #6. Diabetes mellitus type 2 #7. Hypertension #8. Hyperlipidemia #9. Chronic atrial fibrillation on Eliquis #10. 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 Song, with previous history of infection with Acinetobacter baumanii, and staph Plan: The patient was seen and evaluated by Dr. Wallace. He is currently stable from the pulmonary standpoint. Continue DuoNeb inhalations, Symbicort, antibiotics in the form of Levaquin. He's been transitioned off the Lasix drip and is on Lasix 80 mg IV every 12 hours. The plan is for CROW tomorrow. We'll continue to follow. I, the cosigning physician, performed a history & physical examination of the patient. Lungs sounds with crackles in the bilateral posterior bases. Maintaining good O2 saturations in the 90s on 3 L/m per nasal cannula. I discussed the assessment and plan of care with my nurse practitioner, Isis Horton. I attest to the above note as dictated by her.
--- NOTE | 2019-12-26 14:24 | P.PN ---
Subjective Progress Note Date: 12/26/19 This is an 79-year-old gentleman with history of coronary artery disease and prior bypass surgery, ischemic cardio myopathy, valvular heart disease with prior aortic valve replacement with bioprosthetic valve who presented to the hospital with symptoms of shortness of breath and is being treated for CHF exacerbation. Patient overall has been diuresing well, he still is short of breath but it has improved significantly from admission according to the patient. Blood pressure today 116/60 with a heart rate in the 80s, 94% on 3 L of oxygen. White blood cell count 6.1, hemoglobin 11.9, platelet count 131. Sodium 135, potassium 3.5, BUN 29, creatinine 0.9. Objective - Vital Signs Vital signs: Vital Signs Temp 97.4 F L 12/26/19 11:54 Pulse 88 12/26/19 13:51 Resp 20 12/26/19 11:54 BP 116/60 12/26/19 11:54 Pulse Ox 94 L 12/26/19 11:54 Intake & Output 12/25/19 12/26/19 12/26/19 18:59 06:59 18:59 Intake Total 360 540 Output Total 1250 1910 1700 Balance -890 -1370 -1700 Weight 102.2 kg 102.2 kg Intake: Oral 360 540 Output: Urine 1250 1910 1700 Other: Voiding Method Urinal # Voids 2 - Exam Patient is afebrile, pulse in the 90s, respirations 18, blood pressure 102/56, oxygen saturation 91% on 3 L nasal cannula Patient seen and examined resting in bed, appears comfortable Lungs are diminished bilaterally Heart is irregular, systolic murmur audible Mild lower extremity edema bilaterally - Labs CBC & Chem 7: 12/26/19 06:05 12/26/19 06:05 Labs: Abnormal Lab Results - Last 24 Hours (Table) 12/25/19 12/25/19 12/26/19 Range/Units 17:14 20:43 06:05 RBC (4.30-5.90) m/uL Hgb (13.0-17.5) gm/dL Hct (39.0-53.0) % RDW (11.5-15.5) % Plt Count (150-450) k/uL Lymphocytes # (1.0-4.8) k/uL Sodium 135 L (137-145) mmol/L Chloride 96 L (98-107) mmol/L BUN 29 H (9-20) mg/dL Glucose 139 H (74-99) mg/dL POC Glucose (mg/dL) 123 H 169 H (75-99) mg/dL 12/26/19 12/26/19 12/26/19 Range/Units 06:05 06:10 11:47 RBC 3.79 L (4.30-5.90) m/uL Hgb 11.9 L (13.0-17.5) gm/dL Hct 37.2 L (39.0-53.0) % RDW 17.1 H (11.5-15.5) % Plt Count 131 L (150-450) k/uL Lymphocytes # 0.6 L (1.0-4.8) k/uL Sodium (137-145) mmol/L Chloride (98-107) mmol/L BUN (9-20) mg/dL Glucose (74-99) mg/dL POC Glucose (mg/dL) 141 H 189 H (75-99) mg/dL Assessment and Plan Plan: IMPRESSION / ASSESSMENT: #1 Acute on chronic congestive heart failure exacerbation secondary to systolic dysfunction, symptoms improving, diuresing well #2 Ischemic cardiomyopathy #3 CAD status post CABG #4 Valvular heart disease status post aortic valve replacement using bioprosthetic valve #5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 #6Long-standing persistent atrial fibrillation on anticoagulation with eliquis Plan From cardiology's perspective, we'll continue patient on his current medications. We will schedule the patient tomorrow for a CROW with Dr. VC Almonte. To reevaluate the aortic valve. DNP
[2019-12-26 16:33] LABS: Glucose,Whole Blood 185 mg/dL (75-99)
[2019-12-26] MEDS ORDERED: NON FORMULARY DRUG (Dulaglutide [Trulicity] 0.75 MG) SQ SCH (16:46)
--- NOTE | 2019-12-26 20:10 | PN ---
PROGRESS NOTE DATE OF SERVICE: 12/26/2019 This 79-year-old gentleman who was admitted with CHF, acute exacerbation, acute on chronic diastolic dysfunction, EF 50% to 55%, with a history of stroke, persistent CHF. Chest x-ray showed persistent fluid overload at this time. The patient is still short of breath. Cardiology is planning a CROW tomorrow. Past medical history reviewed. The patient also has bioprosthetic valve. Stenosis needs to be ruled out. REVIEW OF SYSTEMS: CARDIOVASCULAR SYSTEM: As mentioned earlier. RESPIRATORY SYSTEM: As mentioned earlier. GI: As mentioned earlier. : No dysuria or retention. NERVOUS SYSTEM: No numbness, weakness. CURRENT MEDICATIONS: Reviewed. They include: 1. Tylenol p.r.n. 2. DuoNeb q.i.d. and p.r.n. 3. Eliquis 5 mg p.o. b.i.d. 4. Lipitor. 5. Symbicort 160/4.5 two puffs b.i.d. 6. Lasix 80 mg IV q.8 b.i.d. 7. NovoLog. 8. Levaquin. 9. Cozaar. 10.Melatonin. 11.Glucophage. 12.Toprol-XL. 13.Magnesium/potassium protocol. 14.Aldactone. PHYSICAL EXAMINATION: Patient is alert, oriented x3. The pulse is 88, blood pressure 116/60, respiration 20, temperature 97.4, pulse ox 94% on 3 L. HEENT: Conjunctivae normal. Oral mucosa moist. NECK: No jugular venous distention. No carotid bruit. No lymph node enlargement. CARDIOVASCULAR SYSTEM: S1, S2 muffled. Ejection systolic murmur. RESPIRATORY SYSTEM: Breath sounds diminished at the bases. Bilateral scattered rhonchi and crackles. ABDOMEN: Soft, non-tender. LEGS: Bilateral leg edema. NERVOUS SYSTEM: Diffusely weak. LABS: WBC 6.2, hemoglobin 11.9. Sodium 135. ASSESSMENT: 1. Congestive heart failure, acute exacerbation, with acute on chronic systolic dysfunction. 2. Severe ischemic cardiomyopathy. 3. Rule out bioprosthetic aortic valve stenosis. 4. History of coronary artery disease, coronary artery bypass grafting. 5. Persistent atrial fibrillation. 6. Anticoagulated with Eliquis. 7. Hyponatremia. 8. Anemia, normocytic; anemia of chronic disease. 9. Mild thrombocytopenia. 10.Hyperlipidemia. 11.Hypertension, essential. 12.Coronary artery disease, coronary artery bypass grafting x2. 13.Obesity with body mass index of 33. 14.Left leg wound and cellulitis. RECOMMENDATIONS AND DISCUSSION: In this 79-year-old gentleman who presented with multiple complex medical issues, we will monitor the patient closely, continue the current medications, continue symptomatic treatment, continue the high-dose IV diuretics and CROW per Cardiology to evaluate the aortic valve. Continue with Eliquis. Continue the Levaquin. Cultures are negative so far. Guarded prognosis because of multiple complex medical issues. Further recommendations to follow. We will monitor the Accu-Cheks. The anti medications are on hold, but we will continue to monitor. Further recommendations to follow. Dr. Montenegro will follow tomorrow. Discussed with the patient and family. ODIN / TONYA: [id number] /
[2019-12-26] MEDS: ATORVASTATIN 20 MG TAB PO SCH (20:28)
[2019-12-26 20:41] LABS: Glucose,Whole Blood 253 mg/dL (75-99)
[2019-12-26] MEDS: MELATONIN 3 MG TABLET PO PRN (23:33)
[2019-12-27 06:19] LABS: Glucose,Whole Blood 129 mg/dL (75-99)
[2019-12-27] MEDS: INSULIN ASPART (NovoLOG) 100 UNIT/ML VIAL SQ SCH ×4 (06:37→20:59)
[2019-12-27] MEDS: IPRATROPIUM-ALBUTEROL 3 ML NEB INHALATION SCH ×3 (07:53→19:22)
[2019-12-27] MEDS: SYMBICORT 160-4.5 MCG INHALER INHALATION SCH ×2 (07:54→19:22)
[2019-12-27] MEDS: FUROSEMIDE 10 MG/ML 10 ML VIAL IV SCH ×2 (08:09→20:19)
[2019-12-27] MEDS: METOPROLOL SUCCINATE (ER) 25 MG TAB.ER.24H PO SCH (08:10)
[2019-12-27] MEDS: metFORMIN 500 MG TAB PO SCH ×2 (08:10→20:19)
[2019-12-27] MEDS: SPIRONOLACTONE 25 MG TAB PO SCH ×2 (08:10→20:19)
[2019-12-27] MEDS: LOSARTAN 50 MG TAB PO SCH (08:10)
[2019-12-27] MEDS: APIXABAN 5 MG TAB PO SCH ×2 (08:11→20:19)
[2019-12-27] MEDS: LEVOFLOXACIN 500 MG TAB PO SCH (08:11)
[2019-12-27] MEDS ORDERED: fentaNYL (PF) 50 MCG/ML 2 ML AMP ONE (11:12)
[2019-12-27] MEDS ORDERED: SODIUM CHLORIDE 0.9% 500 ML 500 ML IV ONE (11:30)
[2019-12-27] MEDS ORDERED: MIDAZOLAM 2 MG/2 ML VIAL IVP ONE ×2 (11:41→11:47)
[2019-12-27] MEDS ORDERED: BENZOCAINE SPRAY 1 CAN TOPICAL ONE (11:41)
[2019-12-27] MEDS ORDERED: fentaNYL (PF) 50 MCG/ML 2 ML AMP IVP ONE (11:41)
[2019-12-27 12:30] LABS: Glucose,Whole Blood 158 mg/dL (75-99)
--- NOTE | 2019-12-27 12:48 | ECHOT ---
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 The patient was given intravenous sedation with Versed and fentanyl and transesophageal echocardiogram was performed without any complications. FINDINGS: Left ventricular chamber is normal in size with evidence of inferolateral hypokinesia with the estimated ejection fraction in the range of 45% to 50%. Mitral valve morphology is normal. Mild degree of mitral regurgitation is noted. There is evidence of smoke in the left atrium and the atrial appendage is clear. Left atrium is moderate to severely enlarged. There is a bioprosthetic valve visualized in the aortic position. The valve leaflets are thickened. There is a diminished opening of the valve leaflets. Peak gradient by transthoracic echo was 55 mmHg with a mean gradient of 30 mmHg. There is at least moderate degree of valvular regurgitation. The aortic valve regurgitation is noted. There is a mild to moderate degree of tricuspid regurgitation noted. Descending thoracic aorta shows mild degree of diffuse atherosclerosis of the descending thoracic aorta. FINAL IMPRESSION: 1. There is a thickening of bioprosthetic aortic valve with diminished opening. There is evidence of at least moderate degree of bioprosthetic aortic valve stenosis and moderate degree of bioprosthetic aortic valve regurgitation. 2. Left ventricular systolic function is mildly impaired with ejection fraction in the range of 40% to 45%. 3. There is a [id number] degree of mitral regurgitation noted. 4. There is no evidence of thrombus in the atrial appendage. There is evidence of smoke in the left atrium. RECOMMENDATIONS: At present we will continue current medical therapy. I discussed the condition with Dr. Fournier. He is going to review the transesophageal echocardiogram and then we will make further recommendations for TAVR. MMODL / IJN: [id number] /
--- NOTE | 2019-12-27 15:54 | PN ---
PROGRESS NOTE PULMONARY/CRITICAL CARE PROGRESS NOTE: DATE OF SERVICE: 12/27/2019 This is an 79-year-old gentleman whom we have been seeing for acute on chronic hypoxemic respiratory failure, related to chronic congestive heart failure with systolic dysfunction, CAD with previous bypass grafting, aortic valve disease, COPD, prior smoker, diabetes mellitus, hypertension, hyperlipidemia, chronic atrial fibrillation and chronic lower extremity wounds. The patient went for a transesophageal echocardiogram today. It looks like it was done by Dr. Almonte. It showed evidence of thickening of the bioprosthetic aortic valve with diminished opening. There was evidence of at least moderate degree of bioprosthetic aortic valve stenosis and moderate degree of bioprosthetic aortic valve regurgitation. Left ventricular systolic function is impaired with an ejection fraction of 40% to 45%. There is a mild to moderate degree of mitral regurgitation; no evidence of thrombus in the atrial appendage. Currently the patient is doing reasonably well. His breathing is improved. He is hoping to be discharged soon from the hospital. PHYSICAL EXAMINATION: VITAL SIGNS: Current vital signs are reviewed. Temperature 97.3, heart rate 75, respiratory rate 18, blood pressure 103/56, mean 71. Two-liter saturation 92%. GENERAL APPEARANCE: Appears in no acute distress. HEENT: HEENT examination is grossly unremarkable. Mucous membranes are moist. No oral lesions. NECK: Supple. Full range of motion. No adenopathy, thyromegaly or neck vein distention. CARDIOVASCULAR: Cardiovascular examination reveals regular rhythm and rate. Heart rate 75 beats per minute. S1, S2 normal. No distinct murmur noted. LUNGS: Lungs reveal a few scattered crackles. No wheezes or rhonchi. Breath sounds equal. ABDOMEN: Soft. Bowel sounds are heard. EXTREMITIES: Intact. The ankles are wrapped. SKIN: Without rash. NEUROLOGIC: Neurologic examination is brief but nonfocal. LABS: Reviewed. Nothing new from today. Microbiology is thus far all negative. MEDICATIONS: Reviewed. The patient is on updrafts and Symbicort. The most recent chest x-ray on 12/25/2019 showed some changes of pulmonary edema. ASSESSMENT: 1. Acute on chronic hypoxemic respiratory failure secondary to acute exacerbation of the patient's chronic congestive heart failure with systolic dysfunction, and an ejection fraction of between 40% and 50%. 2. Coronary artery disease with previous bypass grafting and a redo in 2013 with aortic valve replacement. 3. Aortic valve disease, status post bioprosthetic valve replacement in 2013. CROW showed evidence of prosthetic aortic valve stenosis and regurgitation. 4. Chronic obstructive pulmonary disease, relatively well controlled. 5. Previous history of tobacco use. 6. History of diabetes mellitus. 7. History of hypertension. 8. History of hyperlipidemia. 9. Chronic atrial fibrillation. 10.Chronic wounds to the lower extremities. PLAN: The patient had a transesophageal echocardiogram today. Will let Cardiology decide how they are going to manage him. Additional recommendations and suggestions are forthcoming. Will continue to follow closely. Respiratory status appears to be relatively stable. The patient is hoping for discharge in the next 24-48 hours or so. MMODL / IJN: [id number] /
[2019-12-27 16:59] LABS: Glucose,Whole Blood 180 mg/dL (75-99)
[2019-12-27] MEDS: ACETAMINOPHEN TAB 325 MG TAB PO PRN (20:18)
[2019-12-27] MEDS: ATORVASTATIN 20 MG TAB PO SCH (20:19)
[2019-12-27 20:38] LABS: Glucose,Whole Blood 136 mg/dL (75-99)
--- NOTE | 2019-12-27 22:30 | P.PN ---
Progress Note - Text Progress Note Date: 12/27/19 Chief Complaint: Short of breath History of presenting complaint: This is a pleasant 79-year-old patient of Dr. matthew. Follows with cardiology Dr. VC Almonte. Chronic stable medical conditions include coronary artery disease with bypass 2 with a redo in 2014 with aortic valve replacement. Also patient's stable condition to diabetes, hyperlipidemia, hypertension. Patient's been getting short of breath progressively over. Her time now much getting much worse. Increasing edema. Patient has orthopnea. He was sleeps up in a recliner. Patient also good wounds of the left leg and [facility] - Dr. jernigan. Denies any fever and chills. Appetite is okay. Sent from the office of Dr. VC Almonte. Admitted with acute CHF exacerbation. Started on IV Lasix drip. Today-underwent CROW today. Found to have significant aortic valve stenosis and regurgitation. Plan is for patient would not [facility]. Valve was done about 5 years ago. Arrangements are being made. Tired Review of systems: Was done for constitutional, cardiovascular, GI, pulmonary. relevant finding as above Active Medications Acetaminophen (Tylenol Tab) 650 mg PO Q6HR PRN PRN Reason: Fever and/ or Pain Last Admin: 12/27/19 20:18 Dose: 650 mg Documented by: Albuterol/Ipratropium (Duoneb 0.5 Mg-3 Mg/3 Ml Soln) 3 ml INHALATION RT-TID [facility] Last Admin: 12/27/19 19:22 Dose: 3 ml Documented by: Apixaban (Eliquis) 5 mg PO BID [facility] Last Admin: 12/27/19 20:19 Dose: 5 mg Documented by: Atorvastatin Calcium (Lipitor) 20 mg PO HS [facility] Last Admin: 12/27/19 20:19 Dose: 20 mg Documented by: Budesonide/Formoterol Fumarate (Symbicort 160-4.5 Mcg Inhaler) 2 puff INHALATION RT-BID [facility] Last Admin: 12/27/19 19:22 Dose: 2 puff Documented by: Furosemide (Lasix) 80 mg IV Q12HR [facility] Last Admin: 12/27/19 20:19 Dose: 80 mg Documented by: Insulin Aspart (Novolog) 0 unit SQ [facility]; Protocol Last Admin: 03/03/20 20:59 Dose: 1 unit Documented by: Levofloxacin (Levaquin) 500 mg PO DAILY [facility] Last Admin: 12/27/19 08:11 Dose: 500 mg Documented by: Losartan Potassium (Cozaar) 50 mg PO DAILY [facility] Last Admin: 12/27/19 08:10 Dose: 50 mg Documented by: Melatonin (Melatonin) 3 mg PO HS PRN PRN Reason: Insomnia Last Admin: 12/26/19 23:33 Dose: 3 mg Documented by: Metformin HCl (Glucophage) 1,000 mg PO BID [facility] Last Admin: 12/27/19 20:19 Dose: 1,000 mg Documented by: Metoprolol Succinate (Toprol Xl) 25 mg PO DAILY [facility] Last Admin: 12/27/19 08:10 Dose: 25 mg Documented by: Miscellaneous Information (Magnesium Per Protocol) 1 each MISCELLANE DAILY PRN; Protocol PRN Reason: Per Protocol Miscellaneous Information (Potassium Per Protocol) 1 each MISCELLANE DAILY PRN; Protocol PRN Reason: Per Protocol Non-Formulary Medication (Dulaglutide [Trulicity]) 0.75 mg SQ MO [facility] Last Admin: 12/26/19 21:51 Dose: Not Given Documented by: Jardiance ( Empagliflozin) 10 Mg Tablet 10 mg PO DAILY [facility] Last Admin: 12/27/19 13:21 Dose: 10 mg Documented by: Spironolactone (Aldactone) 50 mg PO BID [facility] Last Admin: 12/27/19 20:19 Dose: 50 mg Documented by: Physical examination: VITAL SIGNS: 98.5, 88, 20, 120/66, 94% on 2 L GENERAL: Laying in bed, tired EYES: Pupils equal. Conjunctiva normal. HEENT: External appearance of nose and ears normal, oral cavity grossly normal. NECK: JVD raised; masses not palpable. HEART: First and second heart sounds are normal; decreased edema. LUNGS:[ Respiratory rate increased, decreased breath sound ABDOMEN: Soft, nontender slightly distended, liver spleen not palpable, no masses palpable. PSYCH: Alert and oriented x3; mood and affect normal. EXTREMITIES: Dressing over the left leg INVESTIGATIONS, reviewed in the clinical context: Accu-Cheks noted CROW-shows significant prosthetic aortic valve stenosis and regurgitation. EF 40-45% Previous testing Potassium 4.5 creatinine 1.14 glucose 349 proBNP 5740 Chest x-ray film personally reviewed by me-cardiomegaly, venous prominence Assessment: -Acute on chronic congestive heart failure exacerbation, EF 40-45% -Significant stenosis and regurgitation of the prosthetic aortic valve with a history of replacement 05 years ago -Diabetes mellitus type 2, uncontrolled with hyperglycemia -Persistent atrial fibrillation on eliquis -Hyperlipidemia -Essential hypertension -Coronary artery disease with a prior history of bypass 2 -Obesity BMI 33 -Left leg wound type unknown, gets dressing of the wound care center by Dr. jernigan Plan: Patient remains on IV Lasix. Other medications to continue. Plan for is a patient to be sent down to [facility]. Discussed with in detail. manager graphic involved in transfer process.
[2019-12-27] MEDS: MELATONIN 3 MG TABLET PO PRN (23:48)
[2019-12-28 06:14] LABS: Glucose,Whole Blood 168 mg/dL (75-99)
[2019-12-28 06:55] LABS: Calcium 8.9 mg/dL (8.4-10.2); Magnesium 1.8 mg/dL (1.6-2.3); Potassium 3.1 mmol/L (3.5-5.1)
[2019-12-28] MEDS: INSULIN ASPART (NovoLOG) 100 UNIT/ML VIAL SQ SCH ×4 (06:57→20:52)
[2019-12-28] MEDS ORDERED: Potassium Replacement Protocol 1 EACH MISC MISCELLANE PRN (07:07)
[2019-12-28] MEDS: ACETAMINOPHEN TAB 325 MG TAB PO PRN (07:51)
[2019-12-28] MEDS: POTASSIUM CHLORIDE ER 20 MEQ TAB.ER PO SCH ×2 (07:52→11:25)
[2019-12-28] MEDS: APIXABAN 5 MG TAB PO SCH ×2 (07:52→20:15)
[2019-12-28] MEDS: METOPROLOL SUCCINATE (ER) 25 MG TAB.ER.24H PO SCH (07:53)
[2019-12-28] MEDS: metFORMIN 500 MG TAB PO SCH ×2 (07:53→20:17)
[2019-12-28] MEDS: LEVOFLOXACIN 500 MG TAB PO SCH (07:53)
[2019-12-28] MEDS: FUROSEMIDE 10 MG/ML 10 ML VIAL IV SCH (07:54)
[2019-12-28] MEDS: SPIRONOLACTONE 25 MG TAB PO SCH ×2 (07:55→20:17)
[2019-12-28] MEDS: IPRATROPIUM-ALBUTEROL 3 ML NEB INHALATION SCH ×3 (08:14→19:38)
[2019-12-28] MEDS: SYMBICORT 160-4.5 MCG INHALER INHALATION SCH ×2 (08:14→19:38)
--- NOTE | 2019-12-28 11:19 | P.PN ---
Subjective Progress Note Date: 12/28/19 Principal diagnosis: Acute on chronic hypoxic respiratory failure sick due to acute exacerbation of CHF with systolic dysfunction 79-year-old white male patient with past medical history of COPD, chronic congestive heart failure with previously documented preserved left ventricular systolic function, valvular heart disease status post aortic valve replacement with a bioprosthetic valve, coronary artery disease status post bypass grafting, chronic atrial fibrillation on Eliquis, diabetes mellitus type 2, ischemic cardiomyopathy, who came into the hospital on O2 2019 for evaluation of worsening dyspnea and increased swelling in his lower extremities, patient was complaining of increased exertional dyspnea, he could hardly walk a few feet without being significantly short of breath. Denied any chest pain. Denied any coughing or wheezing, denied any fever or phlegm production, no chills. He thinks his COPD is under good control right now, he has home oxygen and only wears it on as-needed basis and at bedtime. Chest x-ray showed chronic emphysematous changes and cardiomegaly without new suspicious acute pulmonary process. His lab work on admission showed sodium of 139, potassium is 4.5, chloride is 104, CO2 is 21, BUN is 34 creatinine is 1.14, venous blood gases were completed showing bicarb 23, pCO2 37, pH of 7.40, proBNP was 5740. No leukocytosis white blood cell count 7.5, hemoglobin is 12.6. Patient was in significant fluid overload, he was started on Lasix drip at 10 mg per hour, patient is in -1621 mL fluid balance over the last 24 hours, still has significant amount of pitting edema in his lower extremities up to his thighs. Cardiology is following and is planning on CROW to check on the status of the bioprosthetic valve. In addition patient has chronic lower extremity diabetic wounds for which he follows at the wound care center under the care of Dr. Song. His COPD seems to be stable at this time, with no significant coughing wheezing or congestion, he is on no maintenance of Symbicort, and DuoNeb on a regular basis. He is on Levaquin for empiric antibiotic coverage. We are asked to see the patient in consultation for acute on chronic dyspnea which seems to be exacerbated by CHF exacerbation. The patient is seen today 12/24/2019 in follow-up on the selective care unit. He is currently sitting up in a chair at the bedside. Awake and alert in no acute distress. He denies any worsening shortness of breath, cough or congestion. Currently maintaining O2 saturations in the low 90s on 4 L/m per nasal cannula. Afebrile. Hemodynamically stable. White count 6.5. Hemoglobin 11.9. Sodium 136. Potassium 3.4. Creatinine 0.86. He remains on a Lasix drip at 10 mg per hour. Anticoagulated with Eliquis. He is currently in a -1320 ML balance. Weight down to 102 kg. The patient is seen today 12/25/2019 in follow-up on the selective care unit. He is awake and alert in no acute distress. Breathing better today compared to yesterday. Continued on a Lasix drip at 10 mg per hour. He has decreased swelling of lower extremities. He is maintaining O2 saturation in the 90s on 3 L/m per nasal cannula. His been afebrile. Hemodynamically stable. Remains in a negative balance. His weight is 101.6 kg. White count 6.2. Hemoglobin 12.1. Sodium 136. Potassium 3.9. Bicarb 31. Creatinine 1.02. The patient is seen today 12/26/2019 in follow-up on the selective care unit. He is currently sitting up in a chair at the bedside. Awake and alert in no acute distress. He is maintaining O2 saturation in the 90s on 3 L/m per nasal cannula. She's afebrile. Hemodynamically stable. White count 6.1. Hemoglobin 11.9. Sodium 135. Potassium 3.5. Creatinine 0.99. He is continued on DuoNeb inhalations, Symbicort, antibiotics in the form of Levaquin. He is on Lasix 80 mg IV every 12 hours now. On 12/28/2019 patient seen in follow-up selective care unit, he is awake and alert, in no acute distress, may have supplemental oxygen of 4 L, with pulse ox 100%, this can probably be wean down further, no fever no chills, hemodynamically stable, denies any shortness of breath, breathing looks quite comfortable, patient is able to lie flat in bed and a 15 angle. Yesterday's transesophageal echocardiogram showed thickening of bioprosthetic aortic valve with diminished opening and evidence of moderate degree of bioprosthetic aortic valve stenosis and regurgitation, EF of 40-45%, [id number] degree of mitral regurgitation, no evidence of atrial appendage thrombus, and there was evidence of smoke in the left atrium. Cardiology is considering referring the patient for possibility of TAVR procedure. Patient continues on IV Lasix, 80 mg every 12 hours, and oral anticoagulation, his been venting negative fluid balance, and overall his weight is down by 9 kg since admission Objective - Vital Signs Vital signs: Vital Signs Temp 97.5 F L 12/28/19 04:00 Pulse 84 12/28/19 08:27 Resp 20 12/28/19 04:00 BP 110/56 12/28/19 04:00 Pulse Ox 100 12/28/19 04:00 Intake & Output 12/27/19 12/28/19 12/28/19 18:59 06:59 18:59 Intake Total 150 360 Output Total 1300 1425 800 Balance -1150 -1065 -800 Weight 96.2 kg Intake: IV 150 Oral 360 Output: Urine 1300 1425 800 Other: Voiding Method Urinal Urinal - Exam GENERAL EXAM: Alert, very pleasant, 79-year-old male patient on 4 L of oxygen with a pulse ox of 100%, comfortable in no apparent distress. HEAD: Normocephalic/atraumatic. EYES: Normal reaction of pupils, equal size. Conjunctiva pink, sclera white. NOSE: Clear with pink turbinates. THROAT: No erythema or exudates. NECK: No masses, no JVD, no thyroid enlargement, no adenopathy. CHEST: No chest wall deformity. Symmetrical expansion. LUNGS: Equal air entry with bibasilar crackles, but no wheeze, rhonchi or dull ness. CVS: Irregular rate and rhythm, normal S1 and S2, no gallops, positive murmur, no rubs ABDOMEN: Soft, nontender. No hepatosplenomegaly, normal bowel sounds, no guarding or rigidity. EXTREMITIES: No clubbing, improving lower extremity edema involving feet, ankles, legs, and thighs, mild pitting edema no cyanosis, 2+ pulses and upper and lower extremities. MUSCULOSKELETAL: Muscle strength and tone normal. SPINE: No scoliosis or deformity SKIN: No rashes, chronic diabetic wounds involving CENTRAL NERVOUS SYSTEM: No focal deficits, tone is normal in all 4 extremities. PSYCHIATRIC: Alert and oriented -3. Appropriate affect. Intact judgment and insight. - Labs CBC & Chem 7: 12/26/19 06:05 12/28/19 05:24 Labs: Abnormal Lab Results - Last 24 Hours (Table) 12/27/19 12/27/19 12/27/19 Range/Units 12:29 16:47 20:36 Sodium (137-145) mmol/L Potassium (3.5-5.1) mmol/L Chloride (98-107) mmol/L Carbon Dioxide (22-30) mmol/L BUN (9-20) mg/dL Glucose (74-99) mg/dL POC Glucose (mg/dL) 158 H 180 H 136 H (75-99) mg/dL 12/28/19 12/28/19 Range/Units 05:24 06:12 Sodium 136 L (137-145) mmol/L Potassium 3.1 L (3.5-5.1) mmol/L Chloride 96 L (98-107) mmol/L Carbon Dioxide 31 H (22-30) mmol/L BUN 32 H (9-20) mg/dL Glucose 135 H (74-99) mg/dL POC Glucose (mg/dL) 168 H (75-99) mg/dL Assessment and Plan Plan: Assessment: #1. Acute on chronic hypoxic rest or a failure related to acute exacerbation of chronic congestive heart failure with systolic dysfunction, patient's ejection fraction is between 40 and 50% #2. Moderate degree of bioprosthetic aortic valve stenosis and regurgitation seen on the transesophageal echocardiogram on 12/27/2019, no evidence of thrombus in the atrial appendage, evidence of smoke in the left atrium. Consideration is being given to possibility of TAVR #3. Coronary artery disease, with previous bypass grafting and a redo in 2013 with aortic valve replacement #4. Aortic valve disease, status post bioprosthetic valve replacement in 2013 #5. COPD, wears oxygen on as-needed basis #6. Former smoker, currently in remission #7. Diabetes mellitus type 2 #8. Hypertension #9. Hyperlipidemia #10. Chronic atrial fibrillation on Eliquis #11. 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 Song, with previous history of infection with Acinetobacter baumanii, and staph plan: Diuretics per cardiology, transesophageal echocardiogram results have been noted, cardiology is considering possibility of TAVR our procedure. Patient is in negative fluid balance, breathing easier, wean FiO2. I performed a history & physical examination of the patient and discussed their management with my nurse practitioner, Vera Levy. I reviewed the nurse practitioner's note and agree with the documented findings and plan of care. Lung sounds are positive for bibasilar crackles The findings and the impression was discussed with the patient. I attest to the documentation by the nurse practitioner. Time with Patient: Less than 30
[2019-12-28] MEDS: LOSARTAN 50 MG TAB PO SCH (11:22)
[2019-12-28 11:39] LABS: Glucose,Whole Blood 174 mg/dL (75-99)
[2019-12-28] MEDS: MAGNESIUM SULFATE-D5W PMX 1 GM in DEXTROSE/WATER 1 100ML.BAG IVPB SCH ×2 (12:18→13:36)
--- NOTE | 2019-12-28 13:59 | P.PN ---
Subjective Progress Note Date: 12/28/19 This is an 79-year-old gentleman with history of coronary artery disease and prior bypass surgery, ischemic cardio myopathy, valvular heart disease with prior aortic valve replacement with bioprosthetic valve who presented to the hospital with symptoms of shortness of breath and is being treated for CHF exacerbation. Patient overall has been diuresing well, he still is short of breath but it has improved significantly from admission according to the patient. Blood pressure today 116/60 with a heart rate in the 80s, 94% on 3 L of oxygen. White blood cell count 6.1, hemoglobin 11.9, platelet count 131. Sodium 135, potassium 3.5, BUN 29, creatinine 0.9. 12/28/2019 Patient was seen and examined this morning, he feels well, breathing is overall stable. Blood pressure 90/50 with a heart rate in the 80s to 90s, 98% on 4 L of oxygen. Sodium 136, potassium 3.1, BUN 32, creatinine 1.0, magnesium 1.8. We will discontinue his IV Lasix today and change him over to oral diuretics. Patient initially was going to transfer to [facility] but his insurance does not cover him there. Dr. Bernard will be up to see the patient to discuss possible TAVR, he may perform a cardiac catheterization on Thursday of this week. We have also asked wound care to revisit the patient. Objective - Vital Signs Vital signs: Vital Signs Temp 98.0 F 12/28/19 11:20 Pulse 92 12/28/19 13:42 Resp 18 12/28/19 11:20 BP 90/53 12/28/19 11:20 Pulse Ox 98 12/28/19 11:20 Intake & Output 12/27/19 12/28/19 12/28/19 18:59 06:59 18:59 Intake Total 150 360 480 Output Total 1300 1425 1350 Balance -1150 -1065 -870 Weight 96.2 kg Intake: IV 150 Oral 360 480 Output: Urine 1300 1425 1350 Other: Voiding Method Urinal Urinal # Bowel Movements 1 - Exam Patient is afebrile, pulse in the 90s, respirations 18, blood pressure 102/56, oxygen saturation 91% on 3 L nasal cannula Patient seen and examined resting in bed, appears comfortable Lungs are diminished bilaterally Heart is irregular, systolic murmur audible 1+ bilateral lower extremity edema bilaterally, bilateral ulcerations noted. - Labs CBC & Chem 7: 12/26/19 06:05 12/28/19 05:24 Labs: Abnormal Lab Results - Last 24 Hours (Table) 12/27/19 12/27/19 12/28/19 Range/Units 16:47 20:36 05:24 Sodium 136 L (137-145) mmol/L Potassium 3.1 L (3.5-5.1) mmol/L Chloride 96 L (98-107) mmol/L Carbon Dioxide 31 H (22-30) mmol/L BUN 32 H (9-20) mg/dL Glucose 135 H (74-99) mg/dL POC Glucose (mg/dL) 180 H 136 H (75-99) mg/dL 12/28/19 12/28/19 Range/Units 06:12 11:21 Sodium (137-145) mmol/L Potassium (3.5-5.1) mmol/L Chloride (98-107) mmol/L Carbon Dioxide (22-30) mmol/L BUN (9-20) mg/dL Glucose (74-99) mg/dL POC Glucose (mg/dL) 168 H 174 H (75-99) mg/dL Assessment and Plan Plan: IMPRESSION / ASSESSMENT: #1 Acute on chronic congestive heart failure exacerbation secondary to systolic dysfunction, symptoms improving, diuresing well #2 Ischemic cardiomyopathy #3 CAD status post CABG #4 Valvular heart disease status post aortic valve replacement using bioprosthetic valve #5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 #6Long-standing persistent atrial fibrillation on anticoagulation with eliquis Plan From cardiology's perspective, we'll discontinue the IV Lasix today and start the patient on oral diuretics. We have requested wound care to reevaluate the patient today. Patient will be seen by Dr. Bernard today and be spoken to [facility] TAVR. Patient may undergo a cardiac catheterization this Thursday by Dr. Bernard. We will replace the patient's potassium and magnesium. DNP note has been reviewed, I agree with a documented findings and plan of care. Patient was seen and examined.
[2019-12-28] MEDS: FUROSEMIDE 80 MG TAB PO SCH (16:06)
[2019-12-28 16:32] LABS: Glucose,Whole Blood 206 mg/dL (75-99)
[2019-12-28] MEDS: ATORVASTATIN 20 MG TAB PO SCH (20:17)
[2019-12-28 20:39] LABS: Glucose,Whole Blood 165 mg/dL (75-99)
--- NOTE | 2019-12-28 20:39 | P.PN ---
Progress Note - Text Progress Note Date: 12/28/19 Chief Complaint: Short of breath History of presenting complaint: This is a pleasant 79-year-old patient of Dr. matthew. Follows with cardiology Dr. VC Almonte. Chronic stable medical conditions include coronary artery disease with bypass 2 with a redo in 2014 with aortic valve replacement. Also patient's stable condition to diabetes, hyperlipidemia, hypertension. Patient's been getting short of breath progressively over. Her time now much getting much worse. Increasing edema. Patient has orthopnea. He was sleeps up in a recliner. Patient also good wounds of the left leg and [facility] - Dr. jernigan. Denies any fever and chills. Appetite is okay. Sent from the office of Dr. VC Almonte. Admitted with acute CHF exacerbation. Started on IV Lasix drip.CROW-significant aortic valve stenosis and regurgitation Today-because of patient's insurance could not be transferred to the hospital. She wanted per Dr. Fournier from cardiology. We will hold onto the patient for now to a cardiac cath and arrange for possible TAVR at [place]. Patient remains on IV Lasix. Tired. Review of systems: Was done for constitutional, cardiovascular, GI, pulmonary. relevant finding as above Active Medications Acetaminophen (Tylenol Tab) 650 mg PO Q6HR PRN PRN Reason: Fever and/ or Pain Last Admin: 12/28/19 07:51 Dose: 650 mg Documented by: Albuterol/Ipratropium (Duoneb 0.5 Mg-3 Mg/3 Ml Soln) 3 ml INHALATION RT-TID [facility] Last Admin: 12/28/19 19:38 Dose: 3 ml Documented by: Apixaban (Eliquis) 5 mg PO BID [facility] Last Admin: 12/28/19 20:15 Dose: 5 mg Documented by: Atorvastatin Calcium (Lipitor) 20 mg PO HS [facility] Last Admin: 12/28/19 20:17 Dose: 20 mg Documented by: Budesonide/Formoterol Fumarate (Symbicort 160-4.5 Mcg Inhaler) 2 puff INHALATION RT-BID [facility] Last Admin: 12/28/19 19:38 Dose: 2 puff Documented by: Furosemide (Lasix) 80 mg PO BID@0900,1600 [facility] Last Admin: 12/28/19 16:06 Dose: 80 mg Documented by: Insulin Aspart (Novolog) 0 unit SQ ACHS [facility]; Protocol Last Admin: 12/28/19 17:17 Dose: 4 unit Documented by: Levofloxacin (Levaquin) 500 mg PO DAILY [facility] Last Admin: 12/28/19 07:53 Dose: 500 mg Documented by: Losartan Potassium (Cozaar) 50 mg PO DAILY [facility] Last Admin: 12/28/19 11:22 Dose: Not Given Documented by: Melatonin (Melatonin) 3 mg PO HS PRN PRN Reason: Insomnia Last Admin: 12/27/19 23:48 Dose: 3 mg Documented by: Metformin HCl (Glucophage) 1,000 mg PO BID [facility] Last Admin: 12/28/19 20:17 Dose: 1,000 mg Documented by: Metoprolol Succinate (Toprol Xl) 25 mg PO DAILY [facility] Last Admin: 12/28/19 07:53 Dose: 25 mg Documented by: Miscellaneous Information (Magnesium Per Protocol) 1 each MISCELLANE DAILY PRN; Protocol PRN Reason: Per Protocol Miscellaneous Information (Potassium Per Protocol) 1 each MISCELLANE DAILY PRN; Protocol PRN Reason: Per Protocol Miscellaneous Information (Potassium Per Protocol) 1 each MISCELLANE DAILY PRN; Protocol PRN Reason: Per Protocol Non-Formulary Medication (Dulaglutide [Trulicity]) 0.75 mg SQ MO [facility] Last Admin: 12/26/19 21:51 Dose: Not Given Documented by: Jardiance ( Empagliflozin) 10 Mg Tablet 10 mg PO DAILY [facility] Last Admin: 12/28/19 07:54 Dose: 10 mg Documented by: Spironolactone (Aldactone) 50 mg PO BID [facility] Last Admin: 12/28/19 20:17 Dose: 50 mg Documented by: Physical examination: VITAL SIGNS: 97.7, 82, 18, 107/60, 98% on 4 L GENERAL: Laying in bed, awake EYES: Pupils equal. Conjunctiva normal. HEENT: External appearance of nose and ears normal, oral cavity grossly normal. NECK: JVD raised; masses not palpable. HEART: First and second heart sounds are normal; decreased edema. LUNGS:[ Respiratory rate increased, decreased breath sound ABDOMEN: Soft, nontender slightly distended, liver spleen not palpable, no masses palpable. PSYCH: Alert and oriented x3; mood and affect normal. 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 jernigan Plan: Patient remains on IV Lasix. Other medications to continue. Per cardiology plan for cardiac catheter patient Thursday and possible transfer to [place]. Discharge is being canceled for now.
[2019-12-28 21:00] LABS: Magnesium 2.3 mg/dL (1.6-2.3)
[2019-12-28] MEDS: MELATONIN 3 MG TABLET PO PRN (23:07)
[2019-12-29] MEDS: ACETAMINOPHEN TAB 325 MG TAB PO PRN ×2 (00:07→08:14)
[2019-12-29 05:44] LABS: Glucose,Whole Blood 156 mg/dL (75-99)
[2019-12-29 06:32] LABS: Calcium 8.7 mg/dL (8.4-10.2); Magnesium 2.2 mg/dL (1.6-2.3); Potassium 3.6 mmol/L (3.5-5.1)
[2019-12-29] MEDS: INSULIN ASPART (NovoLOG) 100 UNIT/ML VIAL SQ SCH ×4 (06:35→21:07)
[2019-12-29] MEDS ORDERED: Potassium Replacement Protocol 1 EACH MISC MISCELLANE PRN (07:27)
[2019-12-29] MEDS ORDERED: POTASSIUM CHLORIDE ER 20 MEQ TAB.ER PO SCH (08:00)
[2019-12-29] MEDS: LOSARTAN 50 MG TAB PO SCH (08:13)
[2019-12-29] MEDS: SPIRONOLACTONE 25 MG TAB PO SCH ×2 (08:13→21:00)
[2019-12-29] MEDS: METOPROLOL SUCCINATE (ER) 25 MG TAB.ER.24H PO SCH (08:13)
[2019-12-29] MEDS: LEVOFLOXACIN 500 MG TAB PO SCH (08:13)
[2019-12-29] MEDS: metFORMIN 500 MG TAB PO SCH ×2 (08:14→21:03)
[2019-12-29] MEDS: FUROSEMIDE 80 MG TAB PO SCH ×2 (08:14→17:35)
[2019-12-29] MEDS: APIXABAN 5 MG TAB PO SCH (08:14)
[2019-12-29] MEDS ORDERED: ASPIRIN 325 MG TAB PO STA (08:27)
[2019-12-29] MEDS ORDERED: NITROGLYCERIN SL TABS 0.4 MG TAB SUBLINGUAL PRN (08:27)
[2019-12-29] MEDS ORDERED: ATORVASTATIN 80 MG TAB PO STA (08:27)
[2019-12-29] MEDS ORDERED: SODIUM CHLORIDE 0.9% 1,000 ML in EMPTY BAG 1 BAG IV ONE (08:27)
[2019-12-29] MEDS ORDERED: ALPRAZolam 0.5 MG TAB PO PRN (08:27)
[2019-12-29] MEDS ORDERED: ALPRAZolam 0.25 MG TAB PO PRN (08:27)
[2019-12-29] MEDS: IPRATROPIUM-ALBUTEROL 3 ML NEB INHALATION SCH ×3 (08:34→20:52)
[2019-12-29] MEDS: SYMBICORT 160-4.5 MCG INHALER INHALATION SCH ×2 (08:34→20:52)
[2019-12-29 11:40] LABS: Glucose,Whole Blood 142 mg/dL (75-99)
--- NOTE | 2019-12-29 12:32 | P.PN ---
Subjective Progress Note Date: 12/29/19 This is an 79-year-old gentleman with history of coronary artery disease and prior bypass surgery, ischemic cardio myopathy, valvular heart disease with prior aortic valve replacement with bioprosthetic valve who presented to the hospital with symptoms of shortness of breath and is being treated for CHF exacerbation. Patient overall has been diuresing well, he still is short of breath but it has improved significantly from admission according to the patient. Blood pressure today 116/60 with a heart rate in the 80s, 94% on 3 L of oxygen. White blood cell count 6.1, hemoglobin 11.9, platelet count 131. Sodium 135, potassium 3.5, BUN 29, creatinine 0.9. 12/28/2019 Patient was seen and examined this morning, he feels well, breathing is overall stable. Blood pressure 90/50 with a heart rate in the 80s to 90s, 98% on 4 L of oxygen. Sodium 136, potassium 3.1, BUN 32, creatinine 1.0, magnesium 1.8. We will discontinue his IV Lasix today and change him over to oral diuretics. Patient initially was going to transfer to [facility] but his insurance does not cover him there. Dr. Bernard will be up to see the patient to discuss possible TAVR, he may perform a cardiac catheterization on Thursday of this week. We have also asked wound care to revisit the patient. 12/29/2019 Patient seen and examined this morning, sitting up in the chair at bedside. He has not yet ambulated with physical therapy, did become quite short of breath walking from his bed to the chair. Comfortable at the time of my examination. He is scheduled tomorrow to undergo cardiac catheterization with Dr. Bernard. We will hold his anticoagulation today. Objective - Vital Signs Vital signs: Vital Signs Temp 97.5 F L 12/29/19 08:05 Pulse 79 12/29/19 08:45 Resp 18 12/29/19 08:05 BP 114/69 12/29/19 08:05 Pulse Ox 99 12/29/19 08:35 Intake & Output 12/28/19 12/29/19 12/29/19 18:59 06:59 18:59 Intake Total 720 780 120 Output Total 2450 550 200 Balance -1730 230 -80 Weight 96.1 kg Intake: Oral 720 780 120 Output: Urine 2450 550 200 Other: Voiding Method Urinal # Bowel Movements 1 - Exam Patient is afebrile, pulse in the 90s, respirations 18, blood pressure 102/56, oxygen saturation 91% on 3 L nasal cannula Patient seen and examined resting in bed, appears comfortable Lungs are diminished bilaterally Heart is irregular, systolic murmur audible 1+ bilateral lower extremity edema bilaterally, bilateral ulcerations noted. - Labs CBC & Chem 7: 12/26/19 06:05 12/29/19 05:38 Labs: Abnormal Lab Results - Last 24 Hours (Table) 12/28/19 12/28/19 12/29/19 Range/Units 16:17 20:37 05:38 Sodium 136 L (137-145) mmol/L Chloride 97 L (98-107) mmol/L Carbon Dioxide 31 H (22-30) mmol/L BUN 33 H (9-20) mg/dL Glucose 138 H (74-99) mg/dL POC Glucose (mg/dL) 206 H 165 H (75-99) mg/dL 12/29/19 12/29/19 Range/Units 05:42 11:39 Sodium (137-145) mmol/L Chloride (98-107) mmol/L Carbon Dioxide (22-30) mmol/L BUN (9-20) mg/dL Glucose (74-99) mg/dL POC Glucose (mg/dL) 156 H 142 H (75-99) mg/dL Assessment and Plan Plan: IMPRESSION / ASSESSMENT: #1 Acute on chronic congestive heart failure exacerbation secondary to systolic dysfunction, symptoms improving, diuresing well #2 Ischemic cardiomyopathy #3 CAD status post CABG #4 Valvular heart disease status post aortic valve replacement using bioprosthetic valve #5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 #6Long-standing persistent atrial fibrillation on anticoagulation with eliquis Plan From cardiology's perspective, we'll hold the oral anticoagulation. Patient is scheduled to undergo cardiac catheterization tomorrow. Further recommendations will be based on those findings and the patient's clinical course. DNP note has been reviewed, I agree with a documented findings and plan of care. Patient was seen and examined.
[2019-12-29 15:11] VITALS: BMI 29.5
--- NOTE | 2019-12-29 16:14 | P.PN ---
Progress Note - Text Progress Note Date: 12/29/19 Chief Complaint: Short of breath History of presenting complaint: This is a pleasant 79-year-old patient of Dr. matthew. Follows with cardiology Dr. VC Almonte. Chronic stable medical conditions include coronary artery disease with bypass 2 with a redo in 2014 with aortic valve replacement. Also patient's stable condition to diabetes, hyperlipidemia, hypertension. Patient's been getting short of breath progressively over. Her time now much getting much worse. Increasing edema. Patient has orthopnea. He was sleeps up in a recliner. Patient also good wounds of the left leg and [facility] - Dr. jernigan. Denies any fever and chills. Appetite is okay. Sent from the office of Dr. VC Almonte. Admitted with acute CHF exacerbation. Started on IV Lasix drip.CROW-significant aortic valve stenosis and regurgitation Today-patient is tired. Switched to oral Lasix. Anticoagulation held. For cardiac cath tomorrow. Review of systems: Was done for constitutional, cardiovascular, GI, pulmonary. relevant finding as above Active Medications Acetaminophen (Tylenol Tab) 650 mg PO Q6HR PRN PRN Reason: Fever and/ or Pain Last Admin: 12/29/19 08:14 Dose: 650 mg Documented by: Albuterol/Ipratropium (Duoneb 0.5 Mg-3 Mg/3 Ml Soln) 3 ml INHALATION RT-TID [facility] Last Admin: 12/29/19 14:11 Dose: 3 ml Documented by: Alprazolam (Xanax) 0.25 mg PO Q6HR PRN PRN Reason: Mild Anxiety Alprazolam (Xanax) 0.5 mg PO Q6HR PRN PRN Reason: Moderate Anxiety Atorvastatin Calcium (Lipitor) 20 mg PO HS [facility] Last Admin: 12/28/19 20:17 Dose: 20 mg Documented by: Budesonide/Formoterol Fumarate (Symbicort 160-4.5 Mcg Inhaler) 2 puff INHALATION RT-BID [facility] Last Admin: 12/29/19 08:34 Dose: 2 puff Documented by: Furosemide (Lasix) 80 mg PO BID@0900,1600 [facility] Last Admin: 12/29/19 08:14 Dose: 80 mg Documented by: Sodium Chloride 1,000 ml/ IV (Solution) 1,000 mls @ 96.1 mls/hr IV .[id number] ONE Stop: 12/29/19 18:51 Insulin Aspart (Novolog) 0 unit SQ ACHS [facility]; Protocol Last Admin: 12/29/19 12:35 Dose: 1 unit Documented by: Levofloxacin (Levaquin) 500 mg PO DAILY [facility] Last Admin: 12/29/19 08:13 Dose: 500 mg Documented by: Losartan Potassium (Cozaar) 50 mg PO DAILY [facility] Last Admin: 12/29/19 08:13 Dose: 50 mg Documented by: Melatonin (Melatonin) 3 mg PO HS PRN PRN Reason: Insomnia Last Admin: 12/28/19 23:07 Dose: 3 mg Documented by: Metformin HCl (Glucophage) 1,000 mg PO BID [facility] Last Admin: 12/29/19 08:14 Dose: 1,000 mg Documented by: Metoprolol Succinate (Toprol Xl) 25 mg PO DAILY [facility] Last Admin: 12/29/19 08:13 Dose: 25 mg Documented by: Miscellaneous Information (Magnesium Per Protocol) 1 each MISCELLANE DAILY PRN; Protocol PRN Reason: Per Protocol Miscellaneous Information (Potassium Per Protocol) 1 each MISCELLANE DAILY PRN; Protocol PRN Reason: Per Protocol Nitroglycerin (Nitrostat) 0.4 mg SUBLINGUAL Q5M PRN PRN Reason: Chest Pain Non-Formulary Medication (Dulaglutide [Trulicity]) 0.75 mg SQ MO [facility] Last Admin: 12/26/19 21:51 Dose: Not Given Documented by: Jardiance ( Empagliflozin) 10 Mg Tablet 10 mg PO DAILY [facility] Last Admin: 12/29/19 08:13 Dose: 10 mg Documented by: Spironolactone (Aldactone) 50 mg PO BID [facility] Last Admin: 12/29/19 08:13 Dose: 50 mg Documented by: Physical examination: VITAL SIGNS: 97.5, 80, 18, 11 4/69, 95% on 4 L GENERAL: Laying in bed, awake EYES: Pupils equal. Conjunctiva normal. HEENT: External appearance of nose and ears normal, oral cavity grossly normal. NECK: JVD raised; masses not palpable. HEART: First and second heart sounds are normal; decreased edema. LUNGS:[ Respiratory rate increased, decreased breath sound ABDOMEN: Soft, nontender slightly distended, liver spleen not palpable, no masses palpable. PSYCH: Alert and oriented x3; mood and affect normal. 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 jernigan Plan: Patient switched to by mouth Lasix. Other medications to continue. Plan for cardiac catheterization tomorrow.
[2019-12-29 17:17] LABS: Glucose,Whole Blood 203 mg/dL (75-99)
[2019-12-29 20:15] LABS: Glucose,Whole Blood 256 mg/dL (75-99)
[2019-12-29] MEDS: ATORVASTATIN 20 MG TAB PO SCH (21:03)
[2019-12-30 06:24] LABS: Glucose,Whole Blood 98 mg/dL (75-99)
[2019-12-30] MEDS: INSULIN ASPART (NovoLOG) 100 UNIT/ML VIAL SQ SCH ×4 (06:39→22:27)
[2019-12-30] MEDS: metFORMIN 500 MG TAB PO SCH ×2 (07:41→22:26)
[2019-12-30] MEDS: LEVOFLOXACIN 500 MG TAB PO SCH (08:45)
[2019-12-30] MEDS: METOPROLOL SUCCINATE (ER) 25 MG TAB.ER.24H PO SCH (08:45)
[2019-12-30] MEDS: IPRATROPIUM-ALBUTEROL 3 ML NEB INHALATION SCH ×3 (09:07→21:27)
[2019-12-30] MEDS: SYMBICORT 160-4.5 MCG INHALER INHALATION SCH ×2 (09:07→21:27)
[2019-12-30] MEDS: FUROSEMIDE 80 MG TAB PO SCH ×2 (11:04→17:36)
[2019-12-30] MEDS: LOSARTAN 50 MG TAB PO SCH (11:04)
[2019-12-30] MEDS: SPIRONOLACTONE 25 MG TAB PO SCH ×2 (11:04→22:26)
[2019-12-30] MEDS ORDERED: ASPIRIN 325 MG TAB PO STA (11:41)
[2019-12-30] MEDS ORDERED: ATORVASTATIN 80 MG TAB PO STA (11:41)
[2019-12-30 11:44] LABS: Glucose,Whole Blood 143 mg/dL (75-99)
[2019-12-30] MEDS ORDERED: LIDOCAINE 1% INJ 10MG/ML (20 ML MDV) ONE (13:03)
[2019-12-30] MEDS ORDERED: IV FLUID CONTINUATION 950 ML IV ONE (13:36)
[2019-12-30] MEDS: MIDAZOLAM 2 MG/2 ML VIAL IV ONE ×2 (13:40→13:51)
[2019-12-30] MEDS ORDERED: HYDROmorphone 1 MG/ML 1 ML SYRINGE ONE (13:45)
[2019-12-30] MEDS: HYDROmorphone 1 MG/ML 1 ML SYRINGE IVP ONE ×2 (13:47→13:49)
[2019-12-30] MEDS ORDERED: MORPHINE SULFATE 4 MG/ML SYRINGE ONE (14:01)
[2019-12-30] MEDS ORDERED: LIDOCAINE 1% INJ 10MG/ML (20 ML MDV) SQ ONE (14:02)
[2019-12-30] MEDS ORDERED: MORPHINE SULFATE 4 MG/ML SYRINGE IV ONE (14:04)
[2019-12-30] MEDS ORDERED: IOPAMIDOL-370 125ML BTL INJ ONE (14:19)
[2019-12-30] MEDS ORDERED: RX INFO: IV CONTRAST WAS GIVEN 1 EACH MISC MISCELLANE PRN (14:21)
[2019-12-30] MEDS ORDERED: SODIUM CHLORIDE 0.9% 1,000 ML IV SCH (14:30)
--- NOTE | 2019-12-30 14:42 | CC ---
CARDIAC CATHETERIZATION REPORT DATE OF SERVICE: 12/30/2019 PERFORMING PHYSICIAN: Vimal Fournier MD. PROCEDURE PERFORMED: 1. Selective left and right coronary angiogram. 2. SVG to RCA angiogram. 3. SVG to left circumflex angiogram. INDICATION: This is an 79-year-old gentleman who sees Dr. Almonte in the office on a regular basis with history of coronary artery disease and prior coronary artery bypass grafting as well as status post aortic valve replacement with bioprosthetic valve was diagnosed recently with severe aortic stenosis. The last heart catheterization was performed in 2013 when he was found to have the occlusion of all bypasses and underwent at that point redo bypass along with aortic valve replacement. At that point he received SVG to PDA of RCA and SVG to left circumflex. APPROACH: Right common femoral artery. COMPLICATION: None. LEVEL OF SEDATION: Moderate with sedation length of 20 minutes. PROCEDURE DESCRIPTION: After obtaining an informed consent, the patient was brought to the cardiac brine room laborer. The right common femoral artery was cannulated using micropuncture technique and a micropuncture wire passed easily, then I placed a 6-Khmer sheath in the right radial artery. I did selective left and right coronary angiogram using JL4.5 and JR4 catheters. The SVG to left circumflex angiogram was performed using JR4 catheter. The SVG to RCA angiogram was performed using multipurpose catheter. The procedure was completed without any complication. SELECTIVE CORONARY ANGIOGRAM: 1. THE LEFT MAIN: The ostial left main appeared to have intermediate to severe lesion in the range of 40% to 50%. 2. The left circumflex was occluded from its ostium. 3. The LAD is a large caliber vessel. The mid LAD appeared to have a tubular lesion up to about 70%. This is just distal to the bifurcation of a large diagonal branch which has mild to moderate disease. The LAD after that appeared to be angiographically normal. 4. The right coronary artery is occluded by its ostium. CORONARY BYPASS ANGIOGRAM: 1. The SVG to left circumflex was not opacified. 2. The SVG to RCA is patent. CONCLUSION: 1. Severe triple-vessel coronary artery disease. 2. Occluded SVG to left circumflex. 3. Patent SVG to RCA. POSTPROCEDURE MANAGEMENT: The patient needs to have a PCI of the LAD to be performed either before or after his transcutaneous aortic valve replacement. MMODL / IJN: [id number] /
[2019-12-30 17:01] LABS: Glucose,Whole Blood 126 mg/dL (75-99)
[2019-12-30 20:41] VITALS: RESP 18
[2019-12-30 20:57] LABS: Glucose,Whole Blood 215 mg/dL (75-99)
[2019-12-30] MEDS: ATORVASTATIN 20 MG TAB PO SCH (22:25)
--- NOTE | 2019-12-30 23:35 | P.PN ---
Progress Note - Text Progress Note Date: 12/30/19 Chief Complaint: Short of breath History of presenting complaint: This is a pleasant 79-year-old patient of Dr. matthew. Follows with cardiology Dr. VC Almonte. Chronic stable medical conditions include coronary artery disease with bypass 2 with a redo in 2014 with aortic valve replacement. Also patient's stable condition to diabetes, hyperlipidemia, hypertension. Patient's been getting short of breath progressively over. Her time now much getting much worse. Increasing edema. Patient has orthopnea. He was sleeps up in a recliner. Patient also good wounds of the left leg and goes to [facility] - Dr. jernigan. Denies any fever and chills. Appetite is okay. Sent from the office of Dr. VC Almonte. Admitted with acute CHF exacerbation. Started on IV Lasix drip.CROW-significant aortic valve stenosis and regurgitation Today-underwent cardiac catheterization. Found to about 70% LAD lesion. For intervention down the road. Review of systems: Was done for constitutional, cardiovascular, GI, pulmonary. relevant finding as above Active Medications Acetaminophen (Tylenol Tab) 650 mg PO Q6HR PRN PRN Reason: Fever and/ or Pain Last Admin: 12/29/19 08:14 Dose: 650 mg Documented by: Albuterol/Ipratropium (Duoneb 0.5 Mg-3 Mg/3 Ml Soln) 3 ml INHALATION RT-TID [facility] Last Admin: 12/30/19 21:27 Dose: Not Given Documented by: Alprazolam (Xanax) 0.25 mg PO Q6HR PRN PRN Reason: Mild Anxiety Alprazolam (Xanax) 0.5 mg PO Q6HR PRN PRN Reason: Moderate Anxiety Atorvastatin Calcium (Lipitor) 20 mg PO HS [facility] Last Admin: 12/30/19 22:25 Dose: 20 mg Documented by: Budesonide/Formoterol Fumarate (Symbicort 160-4.5 Mcg Inhaler) 2 puff INHALATION RT-BID [facility] Last Admin: 12/30/19 21:27 Dose: Not Given Documented by: Furosemide (Lasix) 80 mg PO BID@0900,1600 [facility] Last Admin: 12/30/19 17:36 Dose: 80 mg Documented by: Insulin Aspart (Novolog) 0 unit SQ [facility]; Protocol Last Admin: 12/30/19 22:27 Dose: 4 unit Documented by: Losartan Potassium (Cozaar) 50 mg PO DAILY [facility] Last Admin: 12/30/19 11:04 Dose: 50 mg Documented by: Melatonin (Melatonin) 3 mg PO HS PRN PRN Reason: Insomnia Last Admin: 12/28/19 23:07 Dose: 3 mg Documented by: Metformin HCl (Glucophage) 1,000 mg PO BID [facility] Last Admin: 12/30/19 22:26 Dose: 1,000 mg Documented by: Metoprolol Succinate (Toprol Xl) 25 mg PO DAILY [facility] Last Admin: 12/30/19 08:45 Dose: 25 mg Documented by: Miscellaneous Information (Magnesium Per Protocol) 1 each MISCELLANE DAILY PRN; Protocol PRN Reason: Per Protocol Miscellaneous Information (Potassium Per Protocol) 1 each MISCELLANE DAILY PRN; Protocol PRN Reason: Per Protocol Miscellaneous Information (Rx Info: Iv Contrast Was Given) 1 each MISCELLANE DAILY PRN PRN Reason: Per Protocol Stop: 01/01/20 14:22 Nitroglycerin (Nitrostat) 0.4 mg SUBLINGUAL Q5M PRN PRN Reason: Chest Pain Non-Formulary Medication (Dulaglutide [Trulicity]) 0.75 mg SQ MO [facility] Last Admin: 12/26/19 21:51 Dose: Not Given Documented by: Jardiance ( Empagliflozin) 10 Mg Tablet 10 mg PO DAILY [facility] Last Admin: 12/30/19 09:02 Dose: Not Given Documented by: Spironolactone (Aldactone) 50 mg PO BID [facility] Last Admin: 12/30/19 22:26 Dose: 50 mg Documented by: Physical examination: VITAL SIGNS: 83, 16, 104/68, 95% on 4 L GENERAL: Laying in bed, awake EYES: Pupils equal. Conjunctiva normal. HEENT: External appearance of nose and ears normal, oral cavity grossly normal. NECK: JVD raised; masses not palpable. HEART: First and second heart sounds are normal; decreased edema. LUNGS:[ Respiratory rate increased, decreased breath sound ABDOMEN: Soft, nontender slightly distended, liver spleen not palpable, no masses palpable. PSYCH: Alert and oriented x3; mood and affect normal. 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 jernigan Plan: hopefully can be discharged home tomorrow. Follow-up is being coordinated per Dr. Fournier. Including further intervention for the aortic valve. Discussed with the patient.
[2019-12-31 06:05] LABS: Glucose,Whole Blood 130 mg/dL (75-99)
[2019-12-31] MEDS: INSULIN ASPART (NovoLOG) 100 UNIT/ML VIAL SQ SCH ×2 (06:36→12:19)
[2019-12-31] MEDS: IPRATROPIUM-ALBUTEROL 3 ML NEB INHALATION SCH ×2 (08:07→13:34)
[2019-12-31] MEDS: SYMBICORT 160-4.5 MCG INHALER INHALATION SCH (08:07)
[2019-12-31] MEDS: FUROSEMIDE 80 MG TAB PO SCH ×2 (09:30→15:46)
[2019-12-31] MEDS: METOPROLOL SUCCINATE (ER) 25 MG TAB.ER.24H PO SCH (09:30)
[2019-12-31] MEDS: metFORMIN 500 MG TAB PO SCH (09:30)
[2019-12-31] MEDS: LOSARTAN 50 MG TAB PO SCH (09:30)
[2019-12-31] MEDS: SPIRONOLACTONE 25 MG TAB PO SCH (09:30)
[2019-12-31] MEDS ORDERED: APIXABAN 5 MG TAB PO SCH (10:30)
[2019-12-31 11:51] LABS: Glucose,Whole Blood 221 mg/dL (75-99)
--- NOTE | 2019-12-31 11:52 | PN ---
PROGRESS NOTE Mr. Moise is an 79-year-old male with history of coronary bypass grafting, aortic valve replacement, who presented with symptoms of CHF and pulmonary hypertension. He was found to have moderate aortic stenosis and regurgitation. He underwent cardiac catheterization yesterday, was found to have patent saphenous vein graft to the right coronary artery with occluded saphenous graft to the circumflex and significant obstructive disease in the LAD. He is feeling well today. His breathing is stable. He denies any dizziness or palpitations. He denies any nausea. He continues to be on Eliquis 5 mg twice a day, Lipitor 20 mg daily, Trulicity, Lasix 80 mg twice a day, losartan 50 mg daily, metoprolol succinate 25 mg daily, Aldactone 50 mg twice a day. PHYSICAL EXAMINATION: Blood pressure in the 100s with a heart rate in the 80s. LUNGS: Clear. HEART irregularly irregular, S1, S2. No S3 with diastolic murmur. No rub. ABDOMEN: Soft, nontender. Right groin hematoma. IMPRESSION: 1. Degeneration of bioprosthetic aortic valve. 2. Severe coronary artery disease. 3. Pulmonary hypertension. 4. Persistent atrial fibrillation. RECOMMENDATIONS: Patient should be able to be discharged home today and followed as an outpatient next week to make a decision regarding percutaneous revascularization and subsequent TAVR. MMODL / IJN: [id number] /
[2019-12-31 13:22] VITALS: TEMP 97.5
[2019-12-31 13:28] VITALS: BP 99/62
[2019-12-31 13:46] VITALS: PULSE 86
--- NOTE | 2019-12-31 21:13 | P.DS ---
Providers Date of admission: 12/22/19 15:04 Expected date of discharge: 12/31/19 Attending physician: Alfredo Montenegro Consults: 12/22/19 16:16 Consult Physician Urgent Consulting Provider: Vanessa Grace Consult Reason/Comments: Difficulty breathing/heart Failure Do you want consulting provider notified?: Yes Placement Type Exists?: Yes 12/22/19 16:17 Consult Physician Urgent Consulting Provider: Augustus Rios Consult Reason/Comments: Systolic Heart Failure Do you want consulting provider notified?: Yes Placement Type Exists?: Yes Primary care physician: [facility] Course: Chief Complaint: Short of breath History of presenting complaint: This is a pleasant 79-year-old patient of Dr. good. Follows with cardiology Dr. VC Almonte. Chronic stable medical conditions include coronary artery disease with bypass 2 with a redo in 2013 with aortic valve replacement. Also patient's stable condition to diabetes, hyperlipidemia, hypertension. Patient's been getting short of breath progressively over. Her time now much getting much worse. Increasing edema. Patient has orthopnea. He was sleeps up in a recliner. Patient also good wounds of the left leg and goes to [facility] - Dr. jernigan. Denies any fever and chills. Appetite is okay. Sent from the office of Dr. VC Almonte. Admitted with acute CHF exacerbation. Started on IV Lasix drip.CROW-significant aortic valve stenosis and regurgitation. cardiac catheterization.- Found to about 70% LAD lesion. Prognosis possible intervention down the road. Cardiol mary is coordinating his repair of his aortic valve and possible stenting. Today-breathing stable. Laying in bed. Has been out of bed. No chest pain. Cleared by cardiology to go home. Donor Relations Officer: [facility] Dr. jernigan for wound care Physical examination: VITAL SIGNS: 97.5, 95, 18, 99/62, 92% on 4 L GENERAL: Laying in bed, awake EYES: Pupils equal. Conjunctiva normal. HEENT: External appearance of nose and ears normal, oral cavity grossly normal. NECK: JVD raised; masses not palpable. HEART: First and second heart sounds are normal; decreased edema. LUNGS:[ Respiratory rate increased, decreased breath sound ABDOMEN: Soft, nontender slightly distended, liver spleen not palpable, no masses palpable. PSYCH: Alert and oriented x3; mood and affect normal. 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 jernigan Disposition: Home Patient Condition at Discharge: Stable Plan - Discharge Summary New Discharge Prescriptions: New Melatonin 3 mg PO HS PRN tablet PRN Reason: Insomnia INSULIN ASPART (NovoLOG) [NovoLOG (formulary)] 0 unit SQ ACHS vial Spironolactone [Aldactone] 50 mg PO BID #60 tab Furosemide [Lasix] 80 mg PO BID@0900,1600 #60 tab Continue Metoprolol Succinate [Toprol XL] 25 mg PO DAILY metFORMIN HCL [Glucophage] 1,000 mg PO BID Atorvastatin Calcium [Lipitor] 20 mg PO HS Apixaban [Eliquis] 5 mg PO BID #60 tab Dulaglutide [Trulicity] 0.75 mg SQ MO Irbesartan [Avapro] 150 mg PO DAILY Ipratropium-Albuterol Nebulize [Duoneb 0.5 mg-3 mg/3 ml Soln] 3 ml INHALATION RT-TID PRN PRN Reason: Shortness Of Breath Budesonide/Formoterol Fumarate [Symbicort 160-4.5 Mcg Inhaler] 2 puff INHALATION RT-BID PRN PRN Reason: Shortness Of Breath Discontinued Spironolactone [Aldactone] 25 mg PO DAILY glipiZIDE XL [Glucotrol Xl] 10 mg PO DAILY Furosemide [Lasix] 40 mg PO BID Levofloxacin [Levaquin] 500 mg PO DAILY Discharge Medication List Metoprolol Succinate [Toprol XL] 25 mg PO DAILY 02/28/14 [History] metFORMIN HCL [Glucophage] 1,000 mg PO BID 02/28/14 [History] Atorvastatin Calcium [Lipitor] 20 mg PO HS 03/02/14 [History] Apixaban [Eliquis] 5 mg PO BID #60 tab 09/19/14 [Rx] Dulaglutide [Trulicity] 0.75 mg SQ MO 11/16/18 [History] Budesonide/Formoterol Fumarate [Symbicort 160-4.5 Mcg Inhaler] 2 puff INHALATION RT-BID PRN 12/22/19 [History] Ipratropium-Albuterol Nebulize [Duoneb 0.5 mg-3 mg/3 ml Soln] 3 ml INHALATION RT-TID PRN 12/22/19 [History] Irbesartan [Avapro] 150 mg PO DAILY 12/22/19 [History] INSULIN ASPART (NovoLOG) [NovoLOG (formulary)] 0 unit SQ ACHS vial 12/28/19 [Rx] Melatonin 3 mg PO HS PRN tablet 12/28/19 [Rx] Furosemide [Lasix] 80 mg PO BID@0900,1600 #60 tab 12/31/19 [Rx] Spironolactone [Aldactone] 50 mg PO BID #60 tab 12/31/19 [Rx] Follow up Appointment(s)/Referral(s): Shimon Good DO [Primary Care Provider] - 3 Days (Call Thursday for an appointment in three days.) [facility], [NON-STAFF] - Wound Healing,Center [NON-STAFF] - 12/28/19 11:15 am Stan Almonte MD [STAFF PHYSICIAN] - 01/06/20 3:45 pm Patient Instructions/Handouts: *[facility] - After Heart Catheterization - Director Video Instructions, Heart Failure (DC), Heart Healthy Diet (DC) Activity/Diet/Wound Care/Special Instructions: CHF 1. Weigh yourself every morning after you urinate. If you gain 2-3 pounds overnight or 5 pounds in one week, call your primary physician for guidance on your medications. Keep a log of your weights. 2. Avoid salt, or foods with hidden salt. Extra salt makes your heart work harder and traps the fluid in your body for longer. 3. Take all of your medications as directed, especially your water pills. NEVER skip a dose. 4. Elevate your legs when you are not up moving around to help with circulation and prevent swelling. 5. Call your physician if you notice any extra swelling in your legs, ankles, feet or abdomen, if you have a new dry cough, if your shortness of breath worsens with activity or at rest, or if you feel more fatigued. CARDIAC CATH 1. Support your puncture site by applying firm, steady pressure whenever you cough, laugh, sneeze or bear down to have a bowel movement (2-day restriction). 2. Watch for any excessive bruising, active bleeding, a firm knot forming under your skin, extreme tenderness and signs of infection (redness, swelling, fever). 3. Shower daily, do not soak puncture in a tub bath, jacuzzi, pool, chao etc. for 1 week. This is to prevent risk of infection. 4. Drink plenty of fluids the day of and day after your procedure to flush contrast dye out of your kidneys. 5. Take all medications as directed. Never stop any new medication without your physicians OK. 6. No driving for 2 days after procedure. 7. 10- pound weight lifting restriction for 1 week. 8. Low sodium/low fat diet. 9. Activity limited until follow up appointment with your customer resource specialist. In case of any problems, please call [facility] [place] @ [phone]. Discharge Disposition: HOME SELF-CARE
== END 2019-12-31 16:38 | disposition home or self-care (01) | DRG 286 ==
LOC: 3SCARD 15:04
PROVIDERS: ADMIT Hospitalist; ATTEND Hospitalist
PROC: B24BZZ4 Ultrasonography of Heart with Aorta, Transesophageal (ICD-10-PCS; 2019-12-27)
PROC: B2111ZZ Fluoroscopy of Multiple Coronary Arteries using Low Osmolar Contrast (ICD-10-PCS; 2019-12-30)
PROC: B2131ZZ Fluoroscopy of Multiple Coronary Artery Bypass Grafts using Low Osmolar Contrast (ICD-10-PCS; 2019-12-30)
PROC: 4A023N7 Measurement of Cardiac Sampling and Pressure, Left Heart, Percutaneous Approach (ICD-10-PCS; principal; 2019-12-30 14:30)
DX: I11.0 Hypertensive heart disease with heart failure (principal); J96.21 Acute and chronic respiratory failure with hypoxia; I48.11 Longstanding persistent atrial fibrillation; L97.212 Non-pressure chronic ulcer of right calf with fat layer exposed; L97.222 Non-pressure chronic ulcer of left calf with fat layer exposed; I25.810 Atherosclerosis of coronary artery bypass graft(s) without angina pectoris; L03.116 Cellulitis of left lower limb; E87.1 Hypo-osmolality and hyponatremia; T82.857A Stenosis of other cardiac prosthetic devices, implants and grafts, initial encounter; I50.23 Acute on chronic systolic (congestive) heart failure; D63.8 Anemia in other chronic diseases classified elsewhere; D69.6 Thrombocytopenia, unspecified; I27.29 Other secondary pulmonary hypertension; E11.622 Type 2 diabetes mellitus with other skin ulcer; E11.65 Type 2 diabetes mellitus with hyperglycemia; I25.10 Atherosclerotic heart disease of native coronary artery without angina pectoris; E66.9 Obesity, unspecified; E78.5 Hyperlipidemia, unspecified; Y83.1 Surgical operation with implant of artificial internal device as the cause of abnormal reaction of the patient, or of later complication, without mention of misadventure at the time of the procedure; I08.0 Rheumatic disorders of both mitral and aortic valves; I25.5 Ischemic cardiomyopathy; J44.9 Chronic obstructive pulmonary disease, unspecified; I25.2 Old myocardial infarction; Z95.3 Presence of xenogenic heart valve; Z68.33 Body mass index [BMI] 33.0-33.9, adult; Z79.01 Long term (current) use of anticoagulants; Z79.899 Other long term (current) drug therapy; Z79.84 Long term (current) use of oral hypoglycemic drugs; Z79.51 Long term (current) use of inhaled steroids; Z95.1 Presence of aortocoronary bypass graft; Z90.49 Acquired absence of other specified parts of digestive tract; Z98.890 Other specified postprocedural states; Z87.891 Personal history of nicotine dependence; Z87.81 Personal history of (healed) traumatic fracture; Z95.2 Presence of prosthetic heart valve; Z86.73 Personal history of transient ischemic attack (TIA), and cerebral infarction without residual deficits; Z82.49 Family history of ischemic heart disease and other diseases of the circulatory system; Z80.0 Family history of malignant neoplasm of digestive organs
CPT/HCPCS: 71045; 80048; 80053; 82803; 83735; 83880; 84132; 85025; 93312; 93320; 93325; 93455; 94640; 94760

== ENCOUNTER 2020-01-09 06:54 | Day surgery (SDC) | payer MEDICARE ==
[~2020-01-09 06:54] MED LIST: ALPRAZolam 0.25 MG TAB PO PRN; ALPRAZolam 0.5 MG TAB PO PRN; ASPIRIN 325 MG TAB PO STA; ATORVASTATIN 80 MG TAB PO STA; NITROGLYCERIN SL TABS 0.4 MG TAB SUBLINGUAL PRN; SODIUM CHLORIDE 0.9% 1,000 ML in EMPTY BAG 1 BAG IV ONE
[2020-01-09 07:38] LABS: Glucose,Whole Blood 229 mg/dL (75-99)
[2020-01-09] MEDS ORDERED: INSULIN ASPART (NovoLOG) 100 UNIT/ML VIAL SQ ONE (07:43)
[2020-01-09 08:00] LABS: Anisocytosis Slight; Basophils % (A) 0 %; Eosinophils # (A) 0.2 k/uL (0-0.7); Eosinophils % (A) 3 %; HCT 39.4 % (39.0-53.0); HGB 12.7 gm/dL (13.0-17.5); Hypochromasia Slight; Lymphocytes # (A) 0.7 k/uL (1.0-4.8); Lymphocytes % (A) 12 %; MCH 30.8 pg (25.0-35.0); MCHC 32.3 g/dL (31.0-37.0); MCV 95.3 fL (80.0-100.0); Monocytes # (A) 0.4 k/uL (0-1.0); Monocytes % (A) 6 %; Neutrophils # (A) 4.2 k/uL (1.3-7.7); Neutrophils % (A) 75 %; Platelet Count 169 k/uL (150-450); Poikilocytosis Slight; RBC 4.14 m/uL (4.30-5.90); RDW 16.4 % (11.5-15.5); WBC 5.6 k/uL (3.8-10.6)
[2020-01-09 08:01] LABS: Potassium 3.9 mmol/L (3.5-5.1)
--- NOTE | 2020-01-09 08:47 | P.CONS ---
History of Present Illness - Reason for Consult Consult date: 01/09/20 Wound care - History of Present Illness This is an 79-year-old pleasant gentleman known to the wound care center with a nonhealing ulcerations to bilateral lower extremities. Patient had [address]. He does complain of some discomfort and the wraps were taken off today prior to assessment. Only 1 ulceration is open at this time, the anterior ulceration to the left lower extremity. With fat layer exposure. Measuring approximately 1 x 0.9 x 0.1 cm. Granulation is seen throughout the wound bed. No tunneling or undermining noted. Patient was scheduled to be seen on Thursday with Dr. García. Patient will have compression wrap reapplied today or tomorrow and will follow up with Dr. García on next Thursday. Patient is scheduled for PTCA today. Review of Systems Review Of Systems: Constitutional: No fever, no chills, no night sweats. No weight change. No weakness, fatigue or lethargy. No daytime sleepiness. Integumentary:reports wounds, no lesions. No rash or pruritus. No unusual bruising. No change in hair or nails. Past Medical History Past Medical History: Cancer, COPD, CVA/TIA, Diabetes Mellitus, Hyperlipidemia, Hypertension, Myocardial Infarction ([place]) Additional Past Medical History / Comment(s): CVA 08/2016, no residual effects. Skin cancer on face X2. Last Myocardial Infarction Date:: 1991 History of Any Multi-Drug Resistant Organisms: None Reported Past Surgical History: Adenoidectomy, Appendectomy, Coronary Bypass/CABG, Heart Catheterization, Orthopedic Surgery, Tonsillectomy Additional Past Surgical History / Comment(s): HX CABG 1991 AND CABG-2 VESSEL WITH Aortiv Valve Repair March 2014. RIGHT ANKLE SURGERY FOR REPAIR OF A FRAC TURE. Past Anesthesia/Blood Transfusion Reactions: Postoperative Nausea & Vomiting (PONV) Additional Past Anesthesia/Blood Transfusion Reaction / Comm: PT STATES HE DID HAVE PONV WITH ANKLE SURGERY ONLY-THINKS HE DRANK TOO MUCH COFFEE IMMEDIATE POST-OP. Past Psychological History: No Psychological Hx Reported Smoking Status: Former smoker Past Alcohol Use History: Rare Additional Past Alcohol Use History / Comment(s): Quit smoking in 1982. Smoked for 30 yrs. Past Drug Use History: None Reported - Past Family History Mother Family Medical History: Congestive Heart Failure (CHF), Hypertension Additional Family Medical History / Comment(s): MOTHER AT AGE 90 YRS. Father Family Medical History: Cancer, Congestive Heart Failure (CHF) Additional Family Medical History / Comment(s): FATHER AT 94 YRS. HE HAD HX STOMACH CA. Medications and Allergies Home Medications Medication Instructions Recorded Confirmed Type Metoprolol Succinate [Toprol XL] 25 mg PO HS 02/28/14 01/09/20 History metFORMIN HCL [Glucophage] 1,000 mg PO BID 02/28/14 01/09/20 History Atorvastatin Calcium [Lipitor] 20 mg PO HS 03/02/14 01/09/20 History Apixaban [Eliquis] 5 mg PO BID #60 tab 09/19/14 01/09/20 Rx Dulaglutide [Trulicity] 0.75 mg SQ MO 11/16/18 01/09/20 History Budesonide/Formoterol Fumarate 2 puff INHALATION RT-BID PRN 12/22/19 01/09/20 History [Symbicort 160-4.5 Mcg Inhaler] Ipratropium-Albuterol Nebulize 3 ml INHALATION RT-TID PRN 12/22/19 01/09/20 History [Duoneb 0.5 mg-3 mg/3 ml Soln] Irbesartan [Avapro] 150 mg PO DAILY 12/22/19 01/09/20 History Melatonin 3 mg PO HS PRN tablet 12/28/19 01/09/20 Rx Furosemide [Lasix] 80 mg PO BID@0900,1600 #60 tab 12/31/19 01/09/20 Rx Spironolactone [Aldactone] 50 mg PO BID #60 tab 12/31/19 01/09/20 Rx Allergies Allergy/AdvReac Type Severity Reaction Status Date / Time No Known Allergies Allergy Verified 01/05/20 12:50 Physical Exam Vitals: Vital Signs Temp Pulse Resp BP BP Pulse Ox 01/09/20 07:30 97.8 F 58 L 20 106/59 100/59 88 L Intake and Output 01/08/20 01/09/20 01/09/20 22:59 06:59 14:59 Intake Total 50 Balance 50 Intake: IV 50 Other: Weight 94.6 kg Physical exam: General Appearance: Alert, cooperative, no distress, appears stated age. Skin: See HPI all other Skin color, texture, tugor normal, no rashes or lesions. Neurologic: Alert oriented x3 Results CBC & Chem 7: 01/09/20 07:30 01/09/20 07:30 Labs: Abnormal Lab Results - Last 24 Hours (Table) 01/09/20 01/09/20 01/09/20 Range/Units 07:30 07:30 07:36 RBC 4.14 L (4.30-5.90) m/uL Hgb 12.7 L (13.0-17.5) gm/dL RDW 16.4 H (11.5-15.5) % Lymphocytes # 0.7 L (1.0-4.8) k/uL Sodium 136 L (137-145) mmol/L BUN 26 H (9-20) mg/dL Glucose 243 H (74-99) mg/dL POC Glucose (mg/dL) 229 H (75-99) mg/dL Assessment and Plan (1) Non-pressure chronic ulcer of left calf with fat layer exposed Current Visit: No Status: Acute Code(s): L97.222 - NON-PRESSURE CHRONIC ULCER OF LEFT CALF W FAT LAYER EXPOSED SNOMED Code(s): 40834974292360983 (2) Non-pressure chronic ulcer of right calf with fat layer exposed Current Visit: No Status: Acute Code(s): L97.212 - NON-PRESSURE CHRONIC ULCER OF RIGHT CALF W FAT LAYER EXPOSED SNOMED Code(s): 07900586402382068 Plan: Patient will be seen next Thursday in the wound care center. Right leg ulcerations are healed. Apply zinc barrier cream and a 3 layer compression wrap. Do not change for one week. Compression wrap will be applied by the wound care center prior to discharge. Left leg anterior ulceration apply foam with silver, apply zinc barrier cream to the rest of the leg, 3 layer compression wrap applied by the wound care center. Do not remove the wrap. Once patient is admitted to the floor please call the wound care center for staf f to, and apply the compression wraps. Elevate legs at least 30 minutes a day 3 times a day. Refrain from sitting with legs in a dependent position. Thank you kindly for the consultation. Any questions please contact the wound care center. DNP note has been reviewed and discussed with Dr. García and the impression and plan of care has been directed as dictated.
[2020-01-09] MEDS ORDERED: MIDAZOLAM 2 MG/2 ML VIAL IV ONE (09:05)
[2020-01-09] MEDS ORDERED: LIDOCAINE 1% INJ 10MG/ML (20 ML MDV) SQ ONE (09:06)
[2020-01-09] MEDS ORDERED: BIVALIRUDIN BOLUS 250 MG/50 ML IV ONE (09:12)
[2020-01-09] MEDS ORDERED: BIVALIRUDIN 250 MG in SODIUM CHLORIDE 0.9% 50 ML IV ONE (09:13)
[2020-01-09] MEDS ORDERED: CLOPIDOGREL 75 MG TAB PO ONE (09:16)
[2020-01-09] MEDS ORDERED: HYDROmorphone 1 MG/ML 1 ML SYRINGE IVP ONE (09:31)
[2020-01-09] MEDS ORDERED: NITROGLYCERIN 1000MCG/10ML SYRINGE INTRACORON ONE (09:37)
[2020-01-09] MEDS ORDERED: IOPAMIDOL-370 125ML BTL INJ ONE (09:50)
[2020-01-09] MEDS ORDERED: IPRATROPIUM-ALBUTEROL 3 ML NEB INHALATION PRN (09:52)
[2020-01-09] MEDS ORDERED: MELATONIN 3 MG TABLET PO PRN (09:52)
[2020-01-09] MEDS ORDERED: ATROPINE SULFATE 0.1 MG/ML 10ML SYRINGE IV PRN (09:53)
[2020-01-09] MEDS ORDERED: NITROGLYCERIN SL TABS 0.4 MG TAB SUBLINGUAL PRN (09:53)
[2020-01-09] MEDS ORDERED: MAG HYDROX/AL HYDROX/SIMETH 30 ML CUP PO PRN (09:53)
[2020-01-09] MEDS ORDERED: RX INFO: IV CONTRAST WAS GIVEN 1 EACH MISC MISCELLANE PRN (09:53)
[2020-01-09] MEDS ORDERED: ZOLPIDEM 5 MG TAB PO PRN (09:53)
[2020-01-09] MEDS ORDERED: SODIUM CHLORIDE 0.9% 1,000 ML IV SCH (10:00)
--- NOTE | 2020-01-09 10:02 | P.PCN ---
Date of Procedure: 01/09/20 Operative Findings: PERCUTANEOUS CORONARY INTERVENTION Performing physician Vimal Fournier MD, RPVI Procedure performed 1. Successful stenting of the mid LAD using 3.25 x 28 mm Xience LUTHER with an excellent angiographic results 2. Left heart catheterization Indication This is an 7-year-old gentleman who was diagnosed recently with severe symptomatic stenosis involving bioprosthetic valve and he is going to undergo transcutaneous aortic valve replacement. Heart catheterization was performed last week and revealed severe triple-vessel CAD with occluded SVG to left circumflex and patent SVG to RCA with severe disease involving the mid LAD. He was brought today to undergo a PCI of the LAD Complication None Level of sedation Moderate sedation length of 45 minutes Procedure description After obtaining an informed consent the patient was brought to the cardiac woven label designer. The right common femoral artery was cannulated using micropuncture technique, the micropuncture wire passed easily then I placed a 6-[place] sheath 11 cm at the right common femoral artery. At that point anticoagulation was initiated using Angiomax was bolused and drip per protocol. Subsequently I did engage the left main using JL 5 guide. I did wire the LAD using initially a whisper wire and subsequently a run-through wire to have better anchoring and better support. I did balloon angioplasty of the LAD using 2.5 x 15 mm balloon which was inflated 3 times in the mid LAD. Subsequently I did deploy 3.25 x 28 mm Xience drug-eluting stent where the stent was positioned under fluoroscopy guidance and deployed under 18 loc for 28 seconds. The following angiogram showed an excellent angiographic results and the procedure was completed without any complication Hemodynamic The LVEDP was 20 mmHg. Postprocedure management 1. Dual antiplatelet therapy 2. Risk factors modifications 3. Follow-up with the patient
[2020-01-09 13:49] VITALS: BMI 29.0
[2020-01-09] MEDS ORDERED: MORPHINE SULFATE 2 MG/ML SYRINGE IVP STA (15:48)
[2020-01-09 17:41] LABS: Glucose,Whole Blood 203 mg/dL (75-99)
[2020-01-09] MEDS: FUROSEMIDE 80 MG TAB PO SCH (18:27)
[2020-01-09] MEDS: INSULIN ASPART (NovoLOG) 100 UNIT/ML VIAL SQ SCH ×2 (18:27→20:15)
[2020-01-09 20:08] LABS: Glucose,Whole Blood 399 mg/dL (75-99)
[2020-01-09] MEDS: SPIRONOLACTONE 25 MG TAB PO SCH (20:14)
[2020-01-09] MEDS: SYMBICORT 160-4.5 MCG INHALER INHALATION PRN (20:56)
[2020-01-09] MEDS ORDERED: ATORVASTATIN 20 MG TAB PO SCH (21:00)
[2020-01-09] MEDS ORDERED: METOPROLOL SUCCINATE (ER) 25 MG TAB.ER.24H PO SCH (21:00)
[2020-01-10 04:25] VITALS: RESP 18
[2020-01-10 06:12] LABS: Anisocytosis Slight; Basophils % (A) 0 %; Eosinophils # (A) 0.1 k/uL (0-0.7); Eosinophils % (A) 2 %; HGB 12.1 gm/dL (13.0-17.5); Lymphocytes # (A) 0.6 k/uL (1.0-4.8); Lymphocytes % (A) 8 %; MCH 31.2 pg (25.0-35.0); MCHC 32.6 g/dL (31.0-37.0); MCV 95.6 fL (80.0-100.0); Mean Platelet Volume 9.4; Monocytes # (A) 0.4 k/uL (0-1.0); Monocytes % (A) 7 %; Neutrophils # (A) 5.5 k/uL (1.3-7.7); Neutrophils % (A) 81 %; Platelet Count 139 k/uL (150-450); Poikilocytosis Slight; RBC 3.87 m/uL (4.30-5.90); RDW 16.4 % (11.5-15.5); WBC 6.7 k/uL (3.8-10.6)
[2020-01-10 06:19] LABS: African American GFR (CKD) >90 (>60 ml/min/1.73 sqM); Anion Gap 11 mmol/L; Blood Urea Nitrogen 18 mg/dL (9-20); Calcium 8.5 mg/dL (8.4-10.2); Carbon Dioxide 25 mmol/L (22-30); Chloride 98 mmol/L (98-107); Glucose 177 mg/dL (74-99); Non-African American GFR(CKD) 86 (>60 ml/min/1.73 sqM); Potassium 3.7 mmol/L (3.5-5.1); Sodium 134 mmol/L (137-145)
[2020-01-10 06:28] LABS: Glucose,Whole Blood 196 mg/dL (75-99)
[2020-01-10] MEDS: INSULIN ASPART (NovoLOG) 100 UNIT/ML VIAL SQ SCH (06:35)
--- NOTE | 2020-01-10 08:50 | P.DS ---
Providers Date of admission: 2019 Attending physician: Vimal Fournier Consults: 01/09/20 09:53 Consult Physician Routine Consulting Provider: [facility] Consult Reason/Comments: Post Interventional patient Do you want consulting provider notified?: Already Contacted Primary care physician: [facility] Course: This is a pleasant 79-year-old gentleman who underwent yesterday successful stenting of the mid left anterior descending artery with an excellent angiographic results and without any complication. The patient was seen today. The groin is slightly bruised but no discrete hematoma. The patient overall is feeling better according to him and denies any symptoms of chest pain or chest discomfort or shortness of breath or dizziness or heart racing or fluttering. The patient is going to be discharged home on dual antiplatelet therapy along with statin and I will follow-up with him in the office next week Plan - Discharge Summary Discharge Rx Participant: Yes New Discharge Prescriptions: New Aspirin 81 mg PO DAILY #90 chew Clopidogrel [Plavix] 75 mg PO DAILY #90 tab Continue Metoprolol Succinate [Toprol XL] 25 mg PO HS Atorvastatin Calcium [Lipitor] 20 mg PO HS Apixaban [Eliquis] 5 mg PO BID #60 tab Dulaglutide [Trulicity] 0.75 mg SQ MO Irbesartan [Avapro] 150 mg PO DAILY Ipratropium-Albuterol Nebulize [Duoneb 0.5 mg-3 mg/3 ml Soln] 3 ml INHALATION RT-TID PRN PRN Reason: Shortness Of Breath Budesonide/Formoterol Fumarate [Symbicort 160-4.5 Mcg Inhaler] 2 puff INHALATION RT-BID PRN PRN Reason: Shortness Of Breath Melatonin 3 mg PO HS PRN tablet PRN Reason: Insomnia Spironolactone [Aldactone] 50 mg PO BID #60 tab Furosemide [Lasix] 80 mg PO BID@0900,1600 #60 tab Discontinued metFORMIN HCL [Glucophage] 1,000 mg PO BID Discharge Medication List Metoprolol Succinate [Toprol XL] 25 mg PO HS 02/28/14 [History] Atorvastatin Calcium [Lipitor] 20 mg PO HS 03/02/14 [History] Apixaban [Eliquis] 5 mg PO BID #60 tab 09/19/14 [Rx] Dulaglutide [Trulicity] 0.75 mg SQ MO 11/16/18 [History] Budesonide/Formoterol Fumarate [Symbicort 160-4.5 Mcg Inhaler] 2 puff INHALATION RT-BID PRN 12/22/19 [History] Ipratropium-Albuterol Nebulize [Duoneb 0.5 mg-3 mg/3 ml Soln] 3 ml INHALATION RT-TID PRN 12/22/19 [History] Irbesartan [Avapro] 150 mg PO DAILY 12/22/19 [History] Melatonin 3 mg PO HS PRN tablet 12/28/19 [Rx] Furosemide [Lasix] 80 mg PO BID@0900,1600 #60 tab 12/31/19 [Rx] Spironolactone [Aldactone] 50 mg PO BID #60 tab 12/31/19 [Rx] Aspirin 81 mg PO DAILY #90 chew 01/10/20 [Rx] Clopidogrel [Plavix] 75 mg PO DAILY #90 tab 01/10/20 [Rx] Follow up Appointment(s)/Referral(s): Vimal Fournier MD [STAFF PHYSICIAN] - 01/16/20 3:15 pm (Thursday) [facility] [NON-STAFF] - 01/18/20 11:15 am
[2020-01-10] MEDS ORDERED: LOSARTAN 50 MG TAB PO SCH (09:00)
[2020-01-10] MEDS ORDERED: ASPIRIN 81 MG PO SCH (09:00)
[2020-01-10 09:16] VITALS: BP 91/53; PULSE 83; TEMP 97.5
[2020-01-10] MEDS: SPIRONOLACTONE 25 MG TAB PO SCH (09:34)
[2020-01-10] MEDS: FUROSEMIDE 80 MG TAB PO SCH (09:35)
[2020-01-10] MEDS: SYMBICORT 160-4.5 MCG INHALER INHALATION PRN (09:38)
[2020-01-10] MEDS ORDERED: CLOPIDOGREL 75 MG TAB PO SCH (09:54)
[2020-01-10 11:46] LABS: Glucose,Whole Blood 263 mg/dL (75-99)
[2020-01-10 13:30] LABS: Hemoglobin A1C 7.3 % (4.0-6.0)
== END 2020-01-10 12:29 | disposition home or self-care (01) ==
LOC: CATHCVL 06:54 → 3SCARD 09:48 → CATHCVL 01-10 12:29
PROVIDERS: ATTEND Internal Medicine Interventional Cardiology
DX: I25.10 Atherosclerotic heart disease of native coronary artery without angina pectoris (principal); I25.810 Atherosclerosis of coronary artery bypass graft(s) without angina pectoris; J44.9 Chronic obstructive pulmonary disease, unspecified; E11.9 Type 2 diabetes mellitus without complications; E78.5 Hyperlipidemia, unspecified; L97.222 Non-pressure chronic ulcer of left calf with fat layer exposed; L97.219 Non-pressure chronic ulcer of right calf with unspecified severity; I10 Essential (primary) hypertension; I25.2 Old myocardial infarction; Z85.828 Personal history of other malignant neoplasm of skin; Z86.73 Personal history of transient ischemic attack (TIA), and cerebral infarction without residual deficits; Z95.1 Presence of aortocoronary bypass graft; Z87.891 Personal history of nicotine dependence; Z82.49 Family history of ischemic heart disease and other diseases of the circulatory system; Z80.0 Family history of malignant neoplasm of digestive organs; Z79.01 Long term (current) use of anticoagulants; Z79.84 Long term (current) use of oral hypoglycemic drugs; Z79.899 Other long term (current) drug therapy
CPT/HCPCS: 94640 ×2; 80048 ×2; 85025 ×2; 83036; C9600; C1769 ×5; C1887 ×3; C1725; C1894; C1874; J2250; J2001; J2270; J1170; J0583; Q9967

== ENCOUNTER 2020-06-01 14:15 | Inpatient (IN) | payer MEDICARE ==
[2020-06-01] MEDS ORDERED: SODIUM CHLORIDE 0.9% 1,000 ML IV STA (14:36)
[2020-06-01] MEDS ORDERED: IPRATROPIUM-ALBUTEROL 3 ML NEB INHALATION STA (14:36)
--- NOTE | 2020-06-01 14:38 | ED ---
SOB HPI - General Chief Complaint: Shortness of Breath Stated Complaint: Water retention Time Seen by Provider: 06/01/20 14:35 Source: patient, RN notes reviewed, old records reviewed Mode of arrival: wheelchair Limitations: no limitations - History of Present Illness Initial Comments: This is an 79-year-old male DF for evaluation of shortness of breath. Patient presents with complaining of shortness of breath significant lower extremity edema. Occasional chest pain pain when he takes deep breath. History of asthma history of CHF history of heart disease no recent fevers cough or congestion MD Complaint: shortness of breath -: days(s) Severity: moderate Severity scale (1-10): 6 Consistency: constant Improves With: nothing Worsens With: lying flat, exertion Known History Of: congestive heart failure Context: anxiety, recent illness Associated Symptoms: denies other symptoms - Related Data Home Medications Medication Instructions Recorded Confirmed Atorvastatin Calcium [Lipitor] 20 mg PO HS 03/02/14 06/01/20 Budesonide/Formoterol Fumarate 2 puff INHALATION RT-BID PRN 12/22/19 06/01/20 [Symbicort 160-4.5 Mcg Inhaler] Ipratropium-Albuterol Nebulize 3 ml INHALATION RT-QID PRN 12/22/19 06/01/20 [Duoneb 0.5 mg-3 mg/3 ml Soln] Irbesartan [Avapro] 150 mg PO DAILY@119912/22/19 06/01/20 Apixaban [Eliquis] 2.5 mg PO BID 06/01/20 06/01/20 Cholecalciferol [Vitamin D3 (25 5,000 unit PO DAILY@119906/01/20 06/01/20 Mcg = 1000 Iu)] Clopidogrel [Plavix] 75 mg PO DAILY@119906/01/20 06/01/20 Dulaglutide [Trulicity] 1.5 mg SQ MO 06/01/20 06/01/20 Furosemide [Lasix] 80 mg PO BID 06/01/20 06/01/20 Insulin Glargine,Hum.rec.anlog 20 unit SQ HS 06/01/20 06/01/20 [Lantus Solostar] Metoprolol Tartrate [Lopressor] 25 mg PO HS 06/01/20 06/01/20 SILVER sulfADIAZINE Cream 1 applic TOPICAL DAILY PRN 06/01/20 06/01/20 [Silvadene 1% Cream] Spironolactone [Aldactone] 25 mg PO HS 06/01/20 06/01/20 rOPINIRole HCL [Requip] 0.25 mg PO HS PRN 06/01/20 06/01/20 Previous Rx's Medication Instructions Recorded Aspirin 81 mg PO DAILY #90 chew 01/10/20 Allergies Allergy/AdvReac Type Severity Reaction Status Date / Time No Known Allergies Allergy Verified 06/01/20 16:08 Review of Systems ROS Statement: Those systems with pertinent positive or pertinent negative responses have been documented in the HPI. ROS Other: All systems not noted in ROS Statement are negative. 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 Skin cancer on face X2. Last Myocardial Infarction Date:: 1991 History of Any Multi-Drug Resistant Organisms: None Reported Past Surgical History: Adenoidectomy, Appendectomy, Coronary Bypass/CABG, Heart Catheterization, Orthopedic Surgery, Tonsillectomy Additional Past Surgical History / Comment(s): HX CABG 1991 AND CABG-2 VESSEL WITH Aortiv Valve Repair March 2014. RIGHT ANKLE SURGERY FOR REPAIR OF A FRACTURE . Past Anesthesia/Blood Transfusion Reactions: Postoperative Nausea & Vomiting (PONV) Additional Past Anesthesia/Blood Transfusion Reaction / Comment(s): PT STATES HE DID HAVE PONV WITH ANKLE SURGERY ONLY-THINKS HE DRANK TOO MUCH COFFEE IMMEDIATE POST-OP. Past Psychological History: No Psychological Hx Reported Smoking Status: Former smoker Past Alcohol Use History: Rare Past Drug Use History: None Reported - Past Family History Mother Family Medical History: Congestive Heart Failure (CHF), Hypertension Additional Family Medical History / Comment(s): MOTHER AT AGE 90 YRS. Father Family Medical History: Cancer, Congestive Heart Failure (CHF) Additional Family Medical History / Comment(s): FATHER AT 94 YRS. HE HAD HX STOMACH CA. General Exam Limitations: no limitations General appearance: alert, anxious, in distress Head exam: Present: atraumatic, normocephalic, normal inspection Eye exam: Present: normal appearance, PERRL, EOMI. Absent: scleral icterus, conjunctival injection, periorbital swelling ENT exam: Present: normal exam, mucous membranes moist Neck exam: Present: normal inspection. Absent: tenderness, meningismus, lymphadenopathy Respiratory exam: Present: respiratory distress, wheezes, accessory muscle use, decreased breath sounds, prolonged expiratory. Absent: rales, rhonchi, stridor Cardiovascular Exam: Present: tachycardia, irregular rhythm, normal heart sounds. Absent: systolic murmur, diastolic murmur, rubs, gallop, clicks GI/Abdominal exam: Present: soft, normal bowel sounds. Absent: distended, tenderness, guarding, rebound, rigid Extremities exam: Present: normal inspection, full ROM, normal capillary refill. Absent: tenderness, pedal edema, joint swelling, calf tenderness Back exam: Present: normal inspection Neurological exam: Present: alert, oriented X3, CN II-XII intact Psychiatric exam: Present: normal affect, normal mood Skin exam: Present: warm, dry, intact, normal color. Absent: rash Course Vital Signs 06/01/20 06/01/20 06/01/20 14:24 14:28 15:54 Temperature 97.6 F Pulse Rate 86 90 Respiratory 22 21 Rate Blood Pressure 131/58 O2 Sat by Pulse 94 L Oximetry 06/01/20 06/01/20 06/01/20 16:12 16:30 16:45 Temperature 97.4 F L Pulse Rate 89 80 Respiratory 21 20 Rate Blood Pressure 145/91 O2 Sat by Pulse 95 Oximetry - Reevaluation(s) Reevaluation #1: Medical records reviewed Patient reevaluated with symptoms not beginning to improve improved Spoke with patient regarding results, questions answered Patient with worsening shortness of breath will admit Medical Decision Making - Medical Decision Making 7-year-old male DF for evaluation multifactorial shortness of breath, atrial fibrillation CHF and pulmonary edema. COmplicated with asthma - Lab Data Result diagrams: 06/05/20 09:50 06/08/20 08:45 Lab Results 06/01/20 06/01/20 06/01/20 Range/Units 15:27 15:27 15:27 WBC 6.3 (3.8-10.6) k/uL RBC 4.03 L (4.30-5.90) m/uL Hgb 12.0 L (13.0-17.5) gm/dL Hct 38.1 L (39.0-53.0) % MCV 94.4 (80.0-100.0) fL MCH 29.8 (25.0-35.0) pg MCHC 31.5 (31.0-37.0) g/dL RDW 15.8 H (11.5-15.5) % Plt Count 121 L (150-450) k/uL Neutrophils % 77 % Lymphocytes % 13 % Monocytes % 6 % Eosinophils % 2 % Basophils % 0 % Neutrophils # 4.9 (1.3-7.7) k/uL Lymphocytes # 0.8 L (1.0-4.8) k/uL Monocytes # 0.4 (0-1.0) k/uL Eosinophils # 0.1 (0-0.7) k/uL Basophils # 0.0 (0-0.2) k/uL Hypochromasia Moderate Poikilocytosis Slight PT 13.1 H (9.0-12.0) sec INR 1.3 H (<1.2) APTT 27.0 (22.0-30.0) sec Sodium 139 (137-145) mmol/L Potassium 4.0 (3.5-5.1) mmol/L Chloride 104 (98-107) mmol/L Carbon Dioxide 28 (22-30) mmol/L Anion Gap 7 mmol/L BUN 29 H (9-20) mg/dL Creatinine 1.29 H (0.66-1.25) mg/dL Est GFR (CKD-EPI)AfAm 60 (>60 ml/min/1.73 sqM) Est GFR (CKD-EPI)NonAf 52 (>60 ml/min/1.73 sqM) Glucose 134 H (74-99) mg/dL Plasma Lactic Acid Steven (0.7-2.0) mmol/L Calcium 9.0 (8.4-10.2) mg/dL Magnesium 2.2 (1.6-2.3) mg/dL Total Bilirubin 2.4 H (0.2-1.3) mg/dL AST 29 (17-59) U/L ALT 12 (4-49) U/L Alkaline Phosphatase 89 (38-126) U/L Troponin I (0.000-0.034) ng/mL NT-Pro-B Natriuret Pep pg/mL Total Protein 6.6 (6.3-8.2) g/dL Albumin 3.9 (3.5-5.0) g/dL 06/01/20 06/01/20 06/01/20 Range/Units 15:27 15:27 15:27 WBC (3.8-10.6) k/uL RBC (4.30-5.90) m/uL Hgb (13.0-17.5) gm/dL Hct (39.0-53.0) % MCV (80.0-100.0) fL MCH (25.0-35.0) pg MCHC (31.0-37.0) g/dL RDW (11.5-15.5) % Plt Count (150-450) k/uL Neutrophils % % Lymphocytes % % Monocytes % % Eosinophils % % Basophils % % Neutrophils # (1.3-7.7) k/uL Lymphocytes # (1.0-4.8) k/uL Monocytes # (0-1.0) k/uL Eosinophils # (0-0.7) k/uL Basophils # (0-0.2) k/uL Hypochromasia Poikilocytosis PT (9.0-12.0) sec INR (<1.2) APTT (22.0-30.0) sec Sodium (137-145) mmol/L Potassium (3.5-5.1) mmol/L Chloride (98-107) mmol/L Carbon Dioxide (22-30) mmol/L Anion Gap mmol/L BUN (9-20) mg/dL Creatinine (0.66-1.25) mg/dL Est GFR (CKD-EPI)AfAm (>60 ml/min/1.73 sqM) Est GFR (CKD-EPI)NonAf (>60 ml/min/1.73 sqM) Glucose (74-99) mg/dL Plasma Lactic Acid Steven 0.9 (0.7-2.0) mmol/L Calcium (8.4-10.2) mg/dL Magnesium (1.6-2.3) mg/dL Total Bilirubin (0.2-1.3) mg/dL AST (17-59) U/L ALT (4-49) U/L Alkaline Phosphatase (38-126) U/L Troponin I 0.021 (0.000-0.034) ng/mL NT-Pro-B Natriuret Pep 3560 pg/mL Total Protein (6.3-8.2) g/dL Albumin (3.5-5.0) g/dL - EKG Data -: EKG Interpreted by Me (EKG is A. fib 73 QRS 154 QTc 480) - Radiology Data Radiology results: report reviewed (Chest x-ray shows increasing CHF and pulmonary edema), image reviewed Critical Care Time Critical Care Time: Yes Total Critical Care Time: 31 Disposition Clinical Impression: Afib, Heart failure, Asthma with acute exacerbation, Acute pulmonary edema, Congestive heart failure Disposition: ADMITTED IP TO THIS HOSP Condition: Fair Is patient prescribed a controlled substance at d/c from ED?: No
--- NOTE | 2020-06-01 15:21 | XR ---
EXAMINATION TYPE: XR chest 2V DATE OF EXAM: 06/01/2020 COMPARISON: Chest x-ray December 25, 2019. CT chest October 13, 2019. HISTORY: Difficulty in breathing. TECHNIQUE: Frontal and lateral views of the chest are obtained. FINDINGS: Persistent overlying sternal wires and mediastinal clips along with metallic aortic valve. Persistent cardiomegaly with atherosclerotic thoracic aorta. Some chronic parenchymal changes bilater ally without new suspicious focal airspace opacity, pleural effusion, or pneumothorax seen. New Mild central vascular congestion and interstitial edema. Osseous structures remain demineralized with slig ht scoliotic curvature. IMPRESSION: Chronic changes and cardiomegaly with new mild central vascular congestion and interstit ial edema suspected. Correlate for developing CHF exacerbation.
[2020-06-01 15:38] LABS: Basophils % (A) 0 %; Eosinophils # (A) 0.1 k/uL (0-0.7); Eosinophils % (A) 2 %; HCT 38.1 % (39.0-53.0); Hypochromasia Moderate; Lymphocytes # (A) 0.8 k/uL (1.0-4.8); Lymphocytes % (A) 13 %; MCH 29.8 pg (25.0-35.0); MCHC 31.5 g/dL (31.0-37.0); MCV 94.4 fL (80.0-100.0); Monocytes # (A) 0.4 k/uL (0-1.0); Monocytes % (A) 6 %; Neutrophils # (A) 4.9 k/uL (1.3-7.7); Neutrophils % (A) 77 %; Platelet Count 121 k/uL (150-450); Poikilocytosis Slight; RBC 4.03 m/uL (4.30-5.90); RDW 15.8 % (11.5-15.5); WBC 6.3 k/uL (3.8-10.6)
[2020-06-01 15:46] LABS: INR 1.3 (<1.2); Prothrombin Time 13.1 sec (9.0-12.0)
[2020-06-01 15:47] LABS: Albumin 3.9 g/dL (3.5-5.0); Magnesium 2.2 mg/dL (1.6-2.3); Total Bilirubin 2.4 mg/dL (0.2-1.3); Total Protein 6.6 g/dL (6.3-8.2)
[2020-06-01] MEDS ORDERED: methylPREDNISolone SOD SUCCI 125 MG/2 ML VIAL IV STA (15:49)
[2020-06-01] MEDS: ALBUTEROL NEBULIZED 2.5 MG/3 ML INHALATION SCH ×2 (16:00→19:59)
[2020-06-01] MEDS: FUROSEMIDE 10 MG/ML 4 ML VIAL IV SCH ×2 (16:32→23:13)
[2020-06-01] MEDS: SODIUM CHLORIDE 0.9% 1,000 ML IV SCH (16:35)
[2020-06-01 17:00] LABS: Glucose,Whole Blood 164 mg/dL (75-99)
[2020-06-01] MEDS: methylPREDNISolone SOD SUCCI 125 MG/2 ML VIAL IV SCH ×2 (17:12→23:13)
[2020-06-01] MEDS: IBUPROFEN 600 MG TAB PO SCH ×2 (17:41→20:48)
[2020-06-01 20:40] LABS: Glucose,Whole Blood 308 mg/dL (75-99)
[2020-06-01] MEDS: APIXABAN 2.5 MG TABLET PO SCH (20:47)
[2020-06-01] MEDS: ATORVASTATIN 20 MG TAB PO SCH (20:47)
[2020-06-01] MEDS: INSULIN DETEMIR (LEVEMIR) 100 UNIT/ML SYR SQ SCH (20:47)
[2020-06-01] MEDS: METOPROLOL TARTRATE 25 MG TAB PO SCH (20:47)
[2020-06-01] MEDS: INSULIN ASPART (NovoLOG) 100 UNIT/ML VIAL SQ SCH (20:47)
[2020-06-01] MEDS: SPIRONOLACTONE 25 MG TAB PO SCH (20:48)
[2020-06-01] MEDS: ACETAMINOPHEN TAB 325 MG TAB PO PRN (21:34)
[2020-06-02] MEDS: methylPREDNISolone SOD SUCCI 125 MG/2 ML VIAL IV SCH ×2 (05:30→12:23)
[2020-06-02 07:10] LABS: Glucose,Whole Blood 250 mg/dL (75-99)
[2020-06-02] MEDS: ASPIRIN 81 MG PO SCH (07:50)
[2020-06-02] MEDS: IBUPROFEN 600 MG TAB PO SCH ×4 (07:50→21:15)
[2020-06-02] MEDS: INSULIN ASPART (NovoLOG) 100 UNIT/ML VIAL SQ SCH ×4 (07:50→20:50)
[2020-06-02] MEDS: FUROSEMIDE 10 MG/ML 4 ML VIAL IV SCH (07:50)
[2020-06-02] MEDS: APIXABAN 2.5 MG TABLET PO SCH ×2 (07:50→20:50)
[2020-06-02] MEDS: ALBUTEROL NEBULIZED 2.5 MG/3 ML INHALATION SCH ×4 (08:07→20:28)
[2020-06-02 12:03] LABS: Glucose,Whole Blood 473 mg/dL (75-99)
[2020-06-02] MEDS: LOSARTAN 50 MG TAB PO SCH (12:23)
[2020-06-02] MEDS: CHOLECALCIFEROL 1,000 UNIT TAB PO SCH (12:23)
[2020-06-02] MEDS: CLOPIDOGREL 75 MG TAB PO SCH (12:23)
--- NOTE | 2020-06-02 13:27 | P.CRDCN ---
History of Present Illness Consult date: 06/02/20 Chief complaint: Shortness of breath History of present illness: This is a very pleasant 79-year-old gentleman who I follow in the office as an o utpatient with a past medical history significant for coronary artery disease and prior coronary revascularization in terms off bypass as well as a stenting, valvular heart disease and status post aortic valve replacement with bioprosthetic valve, hypertension, dyslipidemia, and long-standing persistent atrial fibrillation presented to the hospital complaining of increasing in the shortness of breath. The patient was seen by myself in the office on May 282019 where he was experiencing increasing in the shortness of breath and progressive lower extremities edema. He was on Lasix which I continued and also I added Aldactone to his current medical regimen. Unfortunately the patient end ed in the hospital with progressive dyspnea and progressive lower extremities edema. He was started on Lasix IV. He was diagnosed in December 2019 with severe bioprosthetic aortic valve stenosis and he scheduled to undergo transcutaneous aortic valve replacement but because of the pandemic everything got canceled. When the patient was seen and examined this morning, he does have severe bilateral lower ex images pitting edema and diminished breathing sounds bilaterally. Beside that the chest x-ray showed findings consistent with heart failure. The BNP came in to be around 5000. The rest of his blood work came in to be unremarkable except for mildly elevated creatinine compared to before. The patient stated that his shortness of breath is slightly better. He is on oral anticoagulation which was continued. At this point I would agree about giving the patient on Lasix IV and continue his kidney function monitoring as well as monitor the BUN and creatinine. Past Medical History Past Medical History: Cancer, Heart Failure, COPD, CVA/TIA, Diabetes Mellitus, Hyperlipidemia, Hypertension, Myocardial Infarction ([place]) Additional Past Medical History / Comment(s): CVA 08/2016, no residual effects. Skin cancer on face X2. Last Myocardial Infarction Date:: 1991 History of Any Multi-Drug Resistant Organisms: None Reported Past Surgical History: Adenoidectomy, Appendectomy, Coronary Bypass/CABG, Heart Catheterization, Orthopedic Surgery, Tonsillectomy Additional Past Surgical History / Comment(s): HX CABG 1991 AND CABG-2 VESSEL WITH Aortiv Valve Repair March 2014. RIGHT ANKLE SURGERY FOR REPAIR OF A FRACTURE. Past Anesthesia/Blood Transfusion Reactions: Postoperative Nausea & Vomiting (PONV) Additional Past Anesthesia/Blood Transfusion Reaction / Comment(s): PT STATES HE DID HAVE PONV WITH ANKLE SURGERY ONLY-THINKS HE DRANK TOO MUCH COFFEE IMMEDIATE POST-OP. Past Psychological History: No Psychological Hx Reported Additional Psychological History / Comment(s): PT LIVES WITH HIS . HE IS FAIRLY ACTIVE AND PERFORMS ALL HIS OWN ADL'S. HE DRIVES A CAR. Smoking Status: Former smoker Past Alcohol Use History: Rare Additional Past Alcohol Use History / Comment(s): Quit smoking in 1982. Smoked for 30 yrs. Past Drug Use History: None Reported - Past Family History Mother Family Medical History: Congestive Heart Failure (CHF), Hypertension Additional Family Medical History / Comment(s): MOTHER AT AGE 90 YRS. Father Family Medical History: Cancer, Congestive Heart Failure (CHF) Additional Family Medical History / Comment(s): FATHER AT 94 YRS. HE HAD HX STOMACH CA. Medications and Allergies Home Medications Medication Instructions Recorded Confirmed Type Atorvastatin Calcium [Lipitor] 20 mg PO HS 03/02/14 06/01/20 History Budesonide/Formoterol Fumarate 2 puff INHALATION RT-BID PRN 12/22/19 06/01/20 History [Symbicort 160-4.5 Mcg Inhaler] Ipratropium-Albuterol Nebulize 3 ml INHALATION RT-QID PRN 12/22/19 06/01/20 History [Duoneb 0.5 mg-3 mg/3 ml Soln] Irbesartan [Avapro] 150 mg PO DAILY@1200 12/22/19 06/01/20 History Aspirin 81 mg PO DAILY #90 chew 01/10/20 06/01/20 Rx Apixaban [Eliquis] 2.5 mg PO BID 06/01/20 06/01/20 History Cholecalciferol [Vitamin D3 (25 5,000 unit PO DAILY@119906/01/20 06/01/20 History Mcg = 1000 Iu)] Clopidogrel [Plavix] 75 mg PO DAILY@119906/01/20 06/01/20 History Dulaglutide [Trulicity] 1.5 mg SQ MO 06/01/20 06/01/20 History Furosemide [Lasix] 80 mg PO BID 06/01/20 06/01/20 History Insulin Glargine,Hum.rec.anlog 20 unit SQ HS 06/01/20 06/01/20 History [Lantus Solostar] Metoprolol Tartrate [Lopressor] 25 mg PO HS 06/01/20 06/01/20 History SILVER sulfADIAZINE Cream 1 applic TOPICAL DAILY PRN 06/01/20 06/01/20 History [Silvadene 1% Cream] Spironolactone [Aldactone] 25 mg PO HS 06/01/20 06/01/20 History rOPINIRole HCL [Requip] 0.25 mg PO HS PRN 06/01/20 06/01/20 History Allergies Allergy/AdvReac Type Severity Reaction Status Date / Time No Known Allergies Allergy Verified 06/01/20 16:08 Physical Exam Vitals: Vital Signs Temp Pulse Pulse Resp BP BP Pulse Ox 06/02/20 11:33 88 06/02/20 11:21 90 06/02/20 08:19 92 06/02/20 08:08 88 06/02/20 08:00 20 06/02/20 07:00 97.6 F 78 20 130/79 93 L 06/02/20 00:24 97.5 F L 76 22 146/76 93 L 06/01/20 23:50 18 06/01/20 20:14 90 06/01/20 19:59 92 96 06/01/20 19:58 18 06/01/20 19:22 98.0 F 98 20 119/67 93 L 06/01/20 17:08 97.4 F L 96 21 146/87 95 06/01/20 16:45 20 06/01/20 16:30 97.4 F L 80 21 145/91 95 06/01/20 16:12 89 06/01/20 15:54 90 06/01/20 14:28 21 06/01/20 14:24 97.6 F 86 22 131/58 94 L Intake and Output 06/01/20 06/02/20 06/02/20 22:59 06:59 14:59 Other: Voiding Method Toilet Toilet # Voids 1 3 Weight 106 kg 106 kg - Constitutional General appearance: no acute distress - Respiratory Respiratory: bilateral: CTA - Cardiovascular Rhythm: regular Heart sounds: normal: S1, S2 Abnormal Heart Sounds: systolic murmur Results 06/01/20 15:27 06/01/20 15:27 Cardiac Enzymes 06/01/20 06/01/20 Range/Units 15:27 15:27 AST 29 (17-59) U/L Troponin I 0.021 (0.000-0.034) ng/mL Coagulation 06/01/20 Range/Units 15:27 PT 13.1 H (9.0-12.0) sec APTT 27.0 (22.0-30.0) sec CBC 06/01/20 Range/Units 15:27 WBC 6.3 (3.8-10.6) k/uL RBC 4.03 L (4.30-5.90) m/uL Hgb 12.0 L (13.0-17.5) gm/dL Hct 38.1 L (39.0-53.0) % Plt Count 121 L (150-450) k/uL Comprehensive Metabolic Panel 06/01/20 Range/Units 15:27 Sodium 139 (137-145) mmol/L Potassium 4.0 (3.5-5.1) mmol/L Chloride 104 (98-107) mmol/L Carbon Dioxide 28 (22-30) mmol/L BUN 29 H (9-20) mg/dL Creatinine 1.29 H (0.66-1.25) mg/dL Glucose 134 H (74-99) mg/dL Calcium 9.0 (8.4-10.2) mg/dL AST 29 (17-59) U/L ALT 12 (4-49) U/L Alkaline Phosphatase 89 (38-126) U/L Total Protein 6.6 (6.3-8.2) g/dL Albumin 3.9 (3.5-5.0) g/dL Current Medications Generic Name Dose Route Start Last Admin Trade Name Freq PRN Reason Stop Dose Admin Acetaminophen 650 mg 06/01/20 17:37 06/01/20 21:34 Tylenol Tab PO 650 mg Q6HR PRN Administration Fever and/ or Pain Albuterol Sulfate 2.5 mg 06/01/20 16:00 06/02/20 11:21 Ventolin Nebulized INHALATION 2.5 mg RT-QID MAL Administration Albuterol/Ipratropium 3 ml 06/01/20 15:49 Duoneb 0.5 Mg-3 Mg/3 Ml Soln INHALATION RT-Q4H PRN Shortness Of Breath Or Wheezing Apixaban 2.5 mg 06/01/20 21:00 06/02/20 07:50 Eliquis PO 2.5 mg BID MAL Administration Aspirin 81 mg 06/02/20 09:00 06/02/20 07:50 Aspirin PO 81 mg DAILY MAL Administration Atorvastatin Calcium 20 mg 06/01/20 21:00 06/01/20 20:47 Lipitor PO 20 mg HS MAL Administration Cholecalciferol 5,000 unit 06/02/20 12:00 06/02/20 12:23 Vitamin D3 (25 Mcg = 1000 Iu) PO 5,000 unit DAILY@1200 MAL Administration Clopidogrel Bisulfate 75 mg 06/02/20 12:00 06/02/20 12:23 Plavix PO 75 mg DAILY@1200 MAL Administration Sodium Chloride 1,000 mls @ 20 mls/hr 06/01/20 16:00 06/01/20 16:35 Saline 0.9% IV 20 mls/hr .Q24H MAL Administration Furosemide 100 mg/ Sodium 100 mls @ 10 mls/hr 06/02/20 13:30 Chloride IV .Q10H MAL 10 MG/HR Ibuprofen 600 mg 06/01/20 18:00 06/02/20 12:24 Motrin PO 600 mg QID MAL Administration Insulin Aspart 0 unit 06/01/20 21:00 06/02/20 12:24 Novolog SQ 13 unit ACHS MAL Administration Protocol Insulin Detemir 20 unit 06/01/20 21:00 06/01/20 20:47 Levemir SQ 20 unit HS MAL Administration Insulin Human Regular 12 unit 06/02/20 13:21 Humulin R SQ 06/02/20 13:22 ONCE ONE Losartan Potassium 50 mg 06/02/20 12:00 06/02/20 12:23 Cozaar PO 50 mg DAILY@1200 MAL Administration Metoprolol Tartrate 25 mg 06/01/20 21:00 06/01/20 20:47 Lopressor PO 25 mg HS MAL Administration Ropinirole HCl 0.25 mg 06/01/20 17:37 Requip PO HS PRN RESTLESS LEGS/SLEEP Silver Sulfadiazine 1 applic 06/01/20 17:37 06/01/20 21:59 Silvadene Cream TOPICAL 1 applic DAILY PRN Administration apply to legs Spironolactone 25 mg 06/01/20 21:00 06/01/20 20:48 Aldactone PO 25 mg HS MAL Administration Intake and Output 06/01/20 06/02/20 06/02/20 22:59 06:59 14:59 Other: Voiding Method Toilet Toilet # Voids 1 3 Weight 106 kg 106 kg Patient Weight 06/03/20 06:59 Weight 106 kg 06/01/20 15:27 06/01/20 15:27 Assessment and Plan Assessment: Assessment #1 congestive heart failure exacerbation secondary to diastole dysfunction #2 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
[2020-06-02] MEDS ORDERED: INSULIN REGULAR 100 UNIT/ML VIAL SQ ONE (13:30)
[2020-06-02] MEDS: FUROSEMIDE 100 MG in SODIUM CHLORIDE 0.9% 90 ML IV SCH ×2 (14:39→23:34)
[2020-06-02] MEDS: SODIUM CHLORIDE 0.9% 1,000 ML IV SCH (16:49)
[2020-06-02 16:58] LABS: Glucose,Whole Blood 369 mg/dL (75-99)
--- NOTE | 2020-06-02 20:24 | P.HPIM ---
History of Present Illness H&P Date: 06/02/20 Chief Complaint: Short of breath History of presenting complaint: This is a pleasant 79-year-old patient of Dr. matthew. Chronic stable medical conditions include coronary artery disease with bypass 2 with a redo in 2013 with aortic valve replacement. Also patient's stable condition to diabetes, hyperlipidemia, hypertension. 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 cardiac catheterization.- Found to about 70% LAD lesion.-Stent was placed. Intervention for the valve postponed because of the COVID pandemic Patient now with presents with progressive increasing shortness of breath edema. Appetite is okay. No fever no chills. He has a chronic left lower extremity wound that he follows [facility] Doctor rere that is draining. At baseline. No cough no phlegm. 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 Smoked for 30 years stopped in 1982. Alcohol rarely. Retired. Physical examination: VITAL SIGNS: 97.6, 78, 20, 130/79, 93% on 3 L GENERAL: Sitting on the edge of the chair, short of breath EYES: Pupils equal. Conjunctiva normal. HEENT: External appearance of nose and ears normal, oral cavity grossly normal. NECK: JVD raised; masses not palpable. HEART: First and second heart sounds are normal; edema present LUNGS:[ Respiratory rate increased, decreased breath sound ABDOMEN: Soft, nontender slightly distended, liver spleen not palpable, no masses palpable. PSYCH: Alert and oriented x3; mood and affect normal. EXTREMITIES: Wound above the left lower extremity ankle INVESTIGATIONS, reviewed in the clinical context: White count 6.3 hemoglobin 12 platelets 121 potassium 4 bun 29 creatinine 1.29 EKG tracing personally reviewed by me-atrial fibrillation rate in the 70s with a right bundle-branch block pattern Chest x-ray film personally reviewed by me-cardiomegaly pulmonary edema Previous testing CROW-shows significant prosthetic aortic valve stenosis and regurgitation. EF 40-45% Creatinine 0.77 in December 2019 Assessment: -Acute on chronic congestive heart failure exacerbation, EF 40-45%, -Significant stenosis and regurgitation of the prosthetic aortic valve with a history of replacement 5 years ago-pending Tabler -Diabetes mellitus type 2, -Persistent atrial fibrillation on eliquis -Hyperlipidemia -Essential hypertension -Coronary artery disease with a prior history of bypass 2 -Obesity BMI 33 -Left leg wound possible venous, gets dressing of the wound care center by Dr. jernigan Plan: Home medications resume. Patient will put on a Lasix drip. Fluid restriction. Cardiology consulted. Care was discussed with the patient. Follow electrolytes closely. Past Medical History Past Medical History: Cancer, Heart Failure, COPD, CVA/TIA, Diabetes Mellitus, Hyperlipidemia, Hypertension, Myocardial Infarction (ME) Additional Past Medical History / Comment(s): CVA 08/2016, no residual effects. Skin cancer on face X2. Last Myocardial Infarction Date:: 1991 History of Any Multi-Drug Resistant Organisms: None Reported Past Surgical History: Adenoidectomy, Appendectomy, Coronary Bypass/CABG, Heart Catheterization, Orthopedic Surgery, Tonsillectomy Additional Past Surgical History / Comment(s): HX CABG 1991 AND CABG-2 VESSEL WITH Aortiv Valve Repair March 2014. RIGHT ANKLE SURGERY FOR REPAIR OF A FRACTURE. Past Anesthesia/Blood Transfusion Reactions: Postoperative Nausea & Vomiting (PONV) Additional Past Anesthesia/Blood Transfusion Reaction / Comment(s): PT STATES HE DID HAVE PONV WITH ANKLE SURGERY ONLY-THINKS HE DRANK TOO MUCH COFFEE IMMEDIATE POST-OP. Past Psychological History: No Psychological Hx Reported Additional Psychological History / Comment(s): PT LIVES WITH HIS . HE IS FAIRLY ACTIVE AND PERFORMS ALL HIS OWN ADL'S. HE DRIVES A CAR. Smoking Status: Former smoker Past Alcohol Use History: Rare Additional Past Alcohol Use History / Comment(s): Quit smoking in 1982. Smoked for 30 yrs. Past Drug Use History: None Reported - Past Family History Mother Family Medical History: Congestive Heart Failure (CHF), Hypertension Additional Family Medical History / Comment(s): MOTHER AT AGE 90 YRS. Father Family Medical History: Cancer, Congestive Heart Failure (CHF) Additional Family Medical History / Comment(s): FATHER AT 94 YRS. HE HAD HX STOMACH CA. Medications and Allergies Home Medications Medication Instructions Recorded Confirmed Type Atorvastatin Calcium [Lipitor] 20 mg PO HS 03/02/14 06/01/20 History Budesonide/Formoterol Fumarate 2 puff INHALATION RT-BID PRN 12/22/19 06/01/20 History [Symbicort 160-4.5 Mcg Inhaler] Ipratropium-Albuterol Nebulize 3 ml INHALATION RT-QID PRN 12/22/19 06/01/20 History [Duoneb 0.5 mg-3 mg/3 ml Soln] Irbesartan [Avapro] 150 mg PO DAILY@1200 12/22/19 06/01/20 History Aspirin 81 mg PO DAILY #90 chew 01/10/20 06/01/20 Rx Apixaban [Eliquis] 2.5 mg PO BID 06/01/20 06/01/20 History Cholecalciferol [Vitamin D3 (25 5,000 unit PO DAILY@1200 06/01/20 06/01/20 History Mcg = 1000 Iu)] Clopidogrel [Plavix] 75 mg PO DAILY@1200 06/01/20 06/01/20 History Dulaglutide [Trulicity] 1.5 mg SQ MO 06/01/20 06/01/20 History Furosemide [Lasix] 80 mg PO BID 06/01/20 06/01/20 History Insulin Glargine,Hum.rec.anlog 20 unit SQ HS 06/01/20 06/01/20 History [Lantus Solostar] Metoprolol Tartrate [Lopressor] 25 mg PO HS 06/01/20 06/01/20 History SILVER sulfADIAZINE Cream 1 applic TOPICAL DAILY PRN 06/01/20 06/01/20 History [Silvadene 1% Cream] Spironolactone [Aldactone] 25 mg PO HS 06/01/20 06/01/20 History rOPINIRole HCL [Requip] 0.25 mg PO HS PRN 06/01/20 06/01/20 History Allergies Allergy/AdvReac Type Severity Reaction Status Date / Time No Known Allergies Allergy Verified 06/01/20 16:08 Physical Exam Vitals: Vital Signs Temp Pulse Pulse Resp BP BP Pulse Ox 06/02/20 08:19 92 06/02/20 08:08 88 06/02/20 08:00 20 06/02/20 07:00 97.6 F 78 20 130/79 93 L 08/08/20 00:24 97.5 F L 76 22 146/76 93 L 06/01/20 23:50 18 06/01/20 20:14 90 06/01/20 19:59 92 96 06/01/20 19:58 18 06/01/20 19:22 98.0 F 98 20 119/67 93 L 06/01/20 17:08 97.4 F L 96 21 146/87 95 06/01/20 16:45 20 06/01/20 16:30 97.4 F L 80 21 145/91 95 06/01/20 16:12 89 06/01/20 15:54 90 06/01/20 14:28 21 06/01/20 14:24 97.6 F 86 22 131/58 94 L Intake and Output 06/01/20 06/02/20 06/02/20 22:59 06:59 14:59 Other: Voiding Method Toilet Toilet # Voids 1 3 Weight 106 kg Results CBC & Chem 7: 06/01/20 15:27 06/01/20 15:27 Labs: Abnormal Lab Results - Last 24 Hours (Table) 06/01/20 06/01/20 06/01/20 Range/Units 15:27 15:27 15:27 RBC 4.03 L (4.30-5.90) m/uL Hgb 12.0 L (13.0-17.5) gm/dL Hct 38.1 L (39.0-53.0) % RDW 15.8 H (11.5-15.5) % Plt Count 121 L (150-450) k/uL Lymphocytes # 0.8 L (1.0-4.8) k/uL PT 13.1 H (9.0-12.0) sec INR 1.3 H (<1.2) BUN 29 H (9-20) mg/dL Creatinine 1.29 H (0.66-1.25) mg/dL Glucose 134 H (74-99) mg/dL POC Glucose (mg/dL) (75-99) mg/dL Total Bilirubin 2.4 H (0.2-1.3) mg/dL 06/01/20 06/01/20 06/02/20 Range/Units 16:58 20:36 06:52 RBC (4.30-5.90) m/uL Hgb (13.0-17.5) gm/dL Hct (39.0-53.0) % RDW (11.5-15.5) % Plt Count (150-450) k/uL Lymphocytes # (1.0-4.8) k/uL PT (9.0-12.0) sec INR (<1.2) BUN (9-20) mg/dL Creatinine (0.66-1.25) mg/dL Glucose (74-99) mg/dL POC Glucose (mg/dL) 164 H 308 H 250 H (75-99) mg/dL Total Bilirubin (0.2-1.3) mg/dL Thrombosis Risk Factor Assmnt - Choose All That Apply Any of the Below Risk Factors Present?: Yes Each Factor Represents 1 point: Swollen legs (current) Each Risk Factor Represents 3 Points: Age 75 years or older Thrombosis Risk Factor Assessment Total Risk Factor Score: 4 Thrombosis Risk Factor Assessment Level: Moderate Risk
[2020-06-02] MEDS: IPRATROPIUM-ALBUTEROL 3 ML NEB INHALATION PRN (20:28)
[2020-06-02] MEDS: ATORVASTATIN 20 MG TAB PO SCH (20:49)
[2020-06-02] MEDS: SPIRONOLACTONE 25 MG TAB PO SCH (20:50)
[2020-06-02] MEDS: METOPROLOL TARTRATE 25 MG TAB PO SCH (20:50)
[2020-06-02] MEDS: INSULIN DETEMIR (LEVEMIR) 100 UNIT/ML SYR SQ SCH (20:50)
[2020-06-02 21:01] LABS: Glucose,Whole Blood 397 mg/dL (75-99)
[2020-06-03 07:01] LABS: Glucose,Whole Blood 186 mg/dL (75-99)
[2020-06-03] MEDS: ASPIRIN 81 MG PO SCH (07:05)
[2020-06-03] MEDS: APIXABAN 2.5 MG TABLET PO SCH ×2 (07:06→21:30)
[2020-06-03] MEDS: IBUPROFEN 600 MG TAB PO SCH ×4 (07:06→21:30)
[2020-06-03] MEDS: INSULIN ASPART (NovoLOG) 100 UNIT/ML VIAL SQ SCH ×4 (07:06→21:30)
[2020-06-03 07:11] LABS: Calcium 9.1 mg/dL (8.4-10.2)
[2020-06-03] MEDS: ALBUTEROL NEBULIZED 2.5 MG/3 ML INHALATION SCH ×4 (08:51→20:08)
[2020-06-03] MEDS: FUROSEMIDE 100 MG in SODIUM CHLORIDE 0.9% 90 ML IV SCH ×2 (09:24→17:28)
[2020-06-03 11:54] LABS: Glucose,Whole Blood 231 mg/dL (75-99)
[2020-06-03] MEDS: CHOLECALCIFEROL 1,000 UNIT TAB PO SCH (12:44)
[2020-06-03] MEDS: LOSARTAN 50 MG TAB PO SCH (12:44)
[2020-06-03] MEDS: CLOPIDOGREL 75 MG TAB PO SCH (12:44)
--- NOTE | 2020-06-03 14:04 | P.PN ---
Subjective Progress Note Date: 06/03/20 Principal diagnosis: Heart failure This is a very pleasant 79-year-old gentleman who I follow in the office as an outpatient with a past medical history significant for coronary artery disease and prior coronary revascularization in terms off bypass as well as a stenting, valvular heart disease and status post aortic valve replacement with bioprosthetic valve, hypertension, dyslipidemia, and long-standing persistent atrial fibrillation presented to the hospital complaining of increasing in the shortness of breath. The patient was seen by myself in the office on May [id number] where he was experiencing increasing in the shortness of breath and progressive lower extremities edema. He was on Lasix which I continued and also I added Aldactone to his current medical regimen. Unfortunately the patient ended in the hospital with progressive dyspnea and progressive lower extremities edema. He was started on Lasix IV. He was diagnosed in December 2019 with severe bioprosthetic aortic valve stenosis and he scheduled to undergo transcutaneous aortic valve replacement but because of the pandemic everything got canceled. When the patient was seen and examined this morning, he does have severe bilateral lower ex images pitting edema and diminished breathing sounds garry aterally. Beside that the chest x-ray showed findings consistent with heart failure. The BNP came in to be around 5000. The patient was seen today June [id number]. Overall he is feeling better. The shortness of breath is better. The lower extremities edema has improved. No symptoms of chest pain or chest discomfort. He still have bilateral rhonchi. The creatinine is a slightly worse. He continues to be on Lasix drip at this point. We will continue the current medical regimen and continue monitor the kidney function and electrolytes Objective - Vital Signs Vital signs: Vital Signs Temp 98.2 F 06/03/20 07:00 Pulse 84 06/03/20 12:59 Resp 20 06/03/20 07:00 BP 108/57 06/03/20 07:00 Pulse Ox 94 L 06/03/20 07:00 Intake & Output 06/02/20 06/03/20 06/03/20 18:59 06:59 18:59 Intake Total 189.167 198.333 Balance 189.167 198.333 Weight 106 kg 104 kg Intake: Intake, IV Titration 89.167 98.333 Amount Furosemide 100 mg In 89.167 98.333 Sodium Chloride 0.9% 90 ml @ 10 MG/HR 10 mls/hr IV .Q10H [facility] Rx#: [id number] Oral 100 100 Other: Voiding Method Toilet # Voids 3 2 - Constitutional General appearance: Present: no acute distress - Respiratory Respiratory: bilateral: rales - Cardiovascular Rhythm: irregularly irregular Heart sounds: normal: S1, S2 - Labs CBC & Chem 7: 06/01/20 15:27 06/03/20 06:35 Labs: Abnormal Lab Results - Last 24 Hours (Table) 06/02/20 06/02/20 06/03/20 Range/Units 16:54 20:40 06:35 BUN 48 H (9-20) mg/dL Creatinine 1.70 H (0.66-1.25) mg/dL Glucose 144 H (74-99) mg/dL POC Glucose (mg/dL) 369 H 397 H (75-99) mg/dL 06/03/20 06/03/20 Range/Units 06:58 11:50 BUN (9-20) mg/dL Creatinine (0.66-1.25) mg/dL Glucose (74-99) mg/dL POC Glucose (mg/dL) 186 H 231 H (75-99) mg/dL Assessment and Plan Assessment: Assessment #1 congestive heart failure exacerbation secondary to diastole dysfunction #2 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
--- NOTE | 2020-06-03 15:15 | ECHOF ---
Referral Reason: MEASUREMENTS -------- HEIGHT: 180.3 cm WEIGHT: 105.7 kg BP: 130/79 RVIDd: 3.8 cm (< 3.3) IVSd: 2.0 cm (0.6 - 1.1) LVIDd: 4.5 cm (3.9 - 5.3) LVPWd: 1.6 cm (0.6 - 1.1) IVSs: 2.1 cm LVIDs: 3.4 cm LVPWs: 2.0 cm LAESV Index (A-L): 32.12 ml/m Ao Diam: 3.4 cm (2.0 - 3.7) AV Cusp: 0.9 cm (1.5 - 2.6) MV EXCURSION: 17.838 mm (> 18.000) MV EF SLOPE: 95 mm/s (70 - 150) EPSS: 0.7 cm AV maxP.52 mmHg AV meanP.04 mmHg RAP: 5.00 mmHg RVSP: 78.17 mmHg FINDINGS -------- Sinus rhythm. This was a technically difficult study with suboptimal apical views. The left ventricular size is normal. There is severe concentric left ventricular hypertrophy. Ove rall left ventricular systolic function is mild-moderately impaired with, an EF between 40 - 45 %. Septal wall motion is delayed and consistent with prior cardiac surgery. The right ventricle is mild to moderately enlarged. LA is midly dilated 29-33ml/m2. The right atrium is mildly enlarged. 5.0mg of Lumason was utilized for enhancement of images Interatrial and interventricular septum intact. Peak/mean gradient across the Aortic Valve is 50.52mmHg / 33.04mmHg. There is moderate-severe steno sis of the bioprosthetic aortic valve. Moderate mitral annular calcification present. Mild mitral regurgitation is present. Severe tricuspid regurgitation present. There is severe pulmonary hypertension. The right ventric ular systolic pressure, as measured by Doppler, is 78.17mmHg. Trace/mild (physiologic) pulmonic regurgitation. The aortic root size is normal. IVC Not well visulized. There is no pericardial effusion. CONCLUSIONS -------- 1. The left ventricular size is normal. 2. There is severe concentric left ventricular hypertrophy. 3. Overall left ventricular systolic function is mild-moderately impaired with, an EF between 40 - 45 %. 4. Septal wall motion is delayed and consistent with prior cardiac surgery. 5. The right ventricle is mild to moderately enlarged. 6. LA is midly dilated 29-33ml/m2. 7. The right atrium is mildly enlarged. 8. Peak/mean gradient across the Aortic Valve is 50.52mmHg / 33.04mmHg. 9. There is moderate-severe stenosis of the bioprosthetic aortic valve. 10. Moderate mitral annular calcification present. 11. Mild mitral regurgitation is present. 12. Severe tricuspid regurgitation present. 13. There is severe pulmonary hypertension. 14. The right ventricular systolic pressure, as measured by Doppler, is 78.17mmHg. 15. Trace/mild (physiologic) pulmonic regurgitation. WELL SURVEYING ENGINEER: Manda Peguero RDCS
--- NOTE | 2020-06-03 15:24 | P.PN ---
Progress Note - Text Progress Note Date: 06/03/20 Chief Complaint: Short of breath History of presenting complaint: This is a pleasant 79-year-old patient of Dr. matthew. Chronic stable medical conditions include coronary artery disease with bypass 2 with a redo in 2013 with aortic valve replacement. Also patient's stable condition to diabetes, hyperlipidemia, hypertension. In December of this year CROW-significant bioprosthetic aortic valve stenosis and regurgitation. cardiac catheterization.- Found to about 70% LAD lesion.-Stent was placed. Intervention for the valve postponed because of the COVID pandemic Patient now with presents with progressive increasing shortness of breath edema. Appetite is okay. No fever no chills. He has a chronic left lower extremity wound that he follows at [facility] Doctor rere that is draining. At baseline. No cough no phlegm. Admitted with-acute on chronic CHF exacerbation EF 40-45%. Started on Lasix drip. Also pending TAVR for outtake bioprosthetic valve stenosis or regurgitation. Today-breathing is a bit better. Appetite improving. Edema is going down. Up to the bathroom. Review of systems: Was done for constitutional, cardiovascular, GI, pulmonary. relevant finding as above Active Medications Acetaminophen (Tylenol Tab) 650 mg PO Q6HR PRN PRN Reason: Fever and/ or Pain Last Admin: 06/01/20 21:34 Dose: 650 mg Documented by: Albuterol Sulfate (Ventolin Nebulized) 2.5 mg INHALATION RT-QID [facility] Last Admin: 06/03/20 12:46 Dose: 2.5 mg Documented by: Albuterol/Ipratropium (Duoneb 0.5 Mg-3 Mg/3 Ml Soln) 3 ml INHALATION RT-Q4H PRN PRN Reason: Shortness Of Breath Or Wheezing Last Admin: 06/02/20 20:28 Dose: 3 ml Documented by: Apixaban (Eliquis) 2.5 mg PO BID [facility] Last Admin: 06/03/20 07:06 Dose: 2.5 mg Documented by: Aspirin (Aspirin) 81 mg PO DAILY [facility] Last Admin: 06/03/20 07:05 Dose: 81 mg Documented by: Atorvastatin Calcium (Lipitor) 20 mg PO HS [facility] Last Admin: 06/02/20 20:49 Dose: 20 mg Documented by: Cholecalciferol (Vitamin D3 (25 Mcg = 1000 Iu)) 5,000 unit PO DAILY@1200 [facility] Last Admin: 06/03/20 12:44 Dose: 5,000 unit Documented by: Clopidogrel Bisulfate (Plavix) 75 mg PO DAILY@1200 [facility] Last Admin: 06/03/20 12:44 Dose: 75 mg Documented by: Sodium Chloride (Saline 0.9%) 1,000 mls @ 20 mls/hr IV .Q24H [facility] Last Admin: 06/02/20 16:49 Dose: Not Given Documented by: Furosemide 100 mg/ Sodium (Chloride) 100 mls @ 10 mls/hr IV .Q10H [facility] Last Admin: 06/03/20 09:24 Dose: 10 mg/hr, 10 mls/hr Documented by: Ibuprofen (Motrin) 600 mg PO QID [facility] Last Admin: 06/03/20 12:43 Dose: 600 mg Documented by: Insulin Aspart (Novolog) 0 unit SQ [facility]; Protocol Last Admin: 06/03/20 12:43 Dose: 5 unit Documented by: Insulin Detemir (Levemir) 20 unit SQ [facility] Last Admin: 06/02/20 20:50 Dose: 20 unit Documented by: Losartan Potassium (Cozaar) 50 mg PO DAILY@1200 [facility] Last Admin: 06/03/20 12:44 Dose: 50 mg Documented by: Metoprolol Tartrate (Lopressor) 25 mg PO [facility] Last Admin: 06/02/20 20:50 Dose: 25 mg Documented by: Ropinirole HCl (Requip) 0.25 mg PO HS PRN PRN Reason: RESTLESS LEGS/SLEEP Silver Sulfadiazine (Silvadene Cream) 1 applic TOPICAL DAILY PRN PRN Reason: apply to legs Last Admin: 06/02/20 22:04 Dose: 1 applic Documented by: Spironolactone (Aldactone) 25 mg PO [facility] Last Admin: 06/02/20 20:50 Dose: 25 mg Documented by: Physical examination: VITAL SIGNS: 37.5, 96, 18, 137/71, 96% on room air GENERAL: Sitting on the edge of the chair, breathing better EYES: Pupils equal. Conjunctiva normal. HEENT: External appearance of nose and ears normal, oral cavity grossly normal. NECK: JVD raised; masses not palpable. HEART: First and second heart sounds are normal; edema decreased LUNGS:[ Respiratory rate increased, decreased breath sound ABDOMEN: Soft, nontender slightly distended, liver spleen not palpable, no masses palpable. PSYCH: Alert and oriented x3; mood and affect normal. EXTREMITIES: Wound above the left lower extremity ankle INVESTIGATIONS, reviewed in the clinical context: Potassium 4 creatinine 1.7 Previous testing: White count 6.3 hemoglobin 12 platelets 121 potassium 4 bun 29 creatinine 1.29 EKG tracing personally reviewed by me-atrial fibrillation rate in the 70s with a right bundle-branch block pattern Chest x-ray film personally reviewed by me-cardiomegaly pulmonary edema Previous testing CROW-shows significant prosthetic aortic valve stenosis and regurgitation. EF 40-45% Creatinine 0.77 in December 2019 Assessment: -Acute on chronic congestive heart failure exacerbation, EF 40-45%,-on Lasix drip -Significant stenosis and regurgitation of the prosthetic aortic valve with a history of replacement 5 years ago-pending TAVR -Acute kidney injury likely prerenal from cardiorenal syndrome.-Worsening -Diabetes mellitus type 2, -Persistent atrial fibrillation on eliquis -Hyperlipidemia -Essential hypertension -Coronary artery disease with a prior history of bypass 2 -Obesity BMI 33 -Left leg wound possible venous, gets dressing of the wound care center by Dr. jernigan Plan: Continue with daily Restasis. Repeat labs in the morning. Consult nephrology. Care was discussed with the patient. Lower extremity wound being followed by wound care team.
[2020-06-03 16:44] LABS: Glucose,Whole Blood 227 mg/dL (75-99)
[2020-06-03] MEDS: SODIUM CHLORIDE 0.9% 1,000 ML IV SCH (17:09)
[2020-06-03 21:21] LABS: Glucose,Whole Blood 271 mg/dL (75-99)
[2020-06-03] MEDS: SPIRONOLACTONE 25 MG TAB PO SCH (21:30)
[2020-06-03] MEDS: ATORVASTATIN 20 MG TAB PO SCH (21:30)
[2020-06-03] MEDS: METOPROLOL TARTRATE 25 MG TAB PO SCH (21:31)
[2020-06-03] MEDS: INSULIN DETEMIR (LEVEMIR) 100 UNIT/ML SYR SQ SCH (21:31)
[2020-06-03] MEDS: ACETAMINOPHEN TAB 325 MG TAB PO PRN (22:59)
[2020-06-04] MEDS: FUROSEMIDE 100 MG in SODIUM CHLORIDE 0.9% 90 ML IV SCH (02:51)
[2020-06-04 06:58] LABS: Glucose,Whole Blood 142 mg/dL (75-99)
[2020-06-04] MEDS: IBUPROFEN 600 MG TAB PO SCH ×4 (07:51→20:30)
[2020-06-04] MEDS: ASPIRIN 81 MG PO SCH (07:52)
[2020-06-04] MEDS: INSULIN ASPART (NovoLOG) 100 UNIT/ML VIAL SQ SCH ×4 (07:52→20:29)
[2020-06-04] MEDS: APIXABAN 2.5 MG TABLET PO SCH ×2 (07:52→20:30)
[2020-06-04 08:23] LABS: Potassium 3.9 mmol/L (3.5-5.1)
[2020-06-04] MEDS: ALBUTEROL NEBULIZED 2.5 MG/3 ML INHALATION SCH ×4 (08:41→20:15)
--- NOTE | 2020-06-04 09:20 | XR ---
EXAMINATION TYPE: XR chest 2V DATE OF EXAM: 06/04/2020 COMPARISON: 06/01/2020 TECHNIQUE: PA and lateral views submitted. HISTORY: Shortness of breath FINDINGS: Cartilage is mildly enlarged and there is postoperative change. Subsegmental changes are seen at the left lung base. Interstitium is improved and there is improved aeration at both lung bases. Subsegmen malou changes lateral margin both upper lobes. IMPRESSION: 1. Improving appearance the chest demonstrating reduction in degree of venous congestion and bilatera l infiltrate.
[2020-06-04 09:26] LABS: Hemoglobin A1C 7.2 % (4.0-6.0)
[2020-06-04 11:26] LABS: Glucose,Whole Blood 159 mg/dL (75-99)
--- NOTE | 2020-06-04 11:52 | P.PN ---
Subjective This is a pleasant 79-year-old male past medical history significant for coronary artery disease status post bypass grafting, valvular heart disease status post aortic valve replacement with bioprosthetic valve, hypertension, dyslipidemia and chronic persistent atrial fibrillation. He follows in the office with Dr. Fournier. He was previously scheduled to undergo TAVR however given the pandemic the procedure was cancelled. He is currently maintained on a Lasix infusion. He is seen and examined resting comfortably laying flat in bed in no acute distress on room air. He denies symptoms of worsening shortness of breath. He has no chest pain, dizziness or palpitations. An accurate documentation of output. His weight is down 2 kg from admission. Laboratory data reviewed, sodium 140, potassium 3.9, creatinine 1.66. Repeat chest x-ray this morning reveals improving venous congestion. Blood pressure 117/53 heart rate 92 afebrile and maintaining oxygen saturation on nasal cannula. Echocardiogram obtained reveals impaired LV systolic function with ejection fraction 40-45%, septal wall motion really consistent with prior cardiac surgery, mild to moderately enlarged right ventricle, moderate to severe stenosis of the bioprosthetic aortic valve with a mean gradient of 33 mmHg, mild MR, severe TR and severe pulmonary hypertension with RVSP of 70 mmHg. GENERAL: Well-appearing, well-nourished and in no acute distress. NECK: Supple without JVD or thyromegaly. LUNGS: Breath sounds clear to auscultation bilaterally. Respiration equal and unlabored. No wheezes, rales or rhonchi. Diminished bilaterally. HEART: Regular rate and rhythm with systolic eject murmurs, rubs or gallops. S1 and S2 heard. EXTREMITIES: Normal range of motion, 1+ pitting edema bilaterally up to the knee with dressing in place to the left lower extremity with oozing noted on the dressing. No clubbing or cyanosis. Peripheral pulses intact. ASSESSMENT Acute on chronic systolic heart failure Valvular heart disease status post bioprosthetic valve replacement with subsequent stenosis awaiting TAVR Coronary artery disease status post bypass grafting Chronic persistent atrial fibrillation on long-term anticoagulation Diabetes mellitus Hypertension Dyslipidemia CVA 2015 PLAN Transition to IVP lasix. Follow electrolytes and renal function in the morning. Record accurate intake and output along with daily weights. Hopefully can transition to oral diuretics tomorrow. Nurse Practitioner note has been reviewed, I agree with a documented findings and plan of care. Patient was seen and examined. Objective - Vital Signs Vital signs: Vital Signs Temp 98.1 F 06/04/20 07:00 Pulse 92 06/04/20 08:53 Resp 18 06/04/20 08:00 BP 117/53 06/04/20 07:00 Pulse Ox 96 06/04/20 07:00 Intake & Output 06/03/20 06/04/20 06/04/20 18:59 06:59 18:59 Intake Total 279.000 293.833 Balance 279.000 293.833 Intake: Intake, IV Titration 179.000 93.833 Amount Furosemide 100 mg In 179.000 93.833 Sodium Chloride 0.9% 90 ml @ 10 MG/HR 10 mls/hr IV .Q10H [facility] Rx#: [id number] Oral 100 200 Other: Voiding Method Toilet Toilet # Voids 3 3 - Labs CBC & Chem 7: 06/01/20 15:27 06/04/20 06:52 Labs: Abnormal Lab Results - Last 24 Hours (Table) 06/03/20 06/03/20 06/03/20 Range/Units 06:35 11:50 16:42 BUN (9-20) mg/dL Creatinine (0.66-1.25) mg/dL Glucose (74-99) mg/dL POC Glucose (mg/dL) 231 H 227 H (75-99) mg/dL Hemoglobin A1c 7.2 H (4.0-6.0) % 06/03/20 06/04/20 06/04/20 Range/Units 21:14 06:52 06:56 BUN 50 H (9-20) mg/dL Creatinine 1.66 H (0.66-1.25) mg/dL Glucose 119 H (74-99) mg/dL POC Glucose (mg/dL) 271 H 142 H (75-99) mg/dL Hemoglobin A1c (4.0-6.0) % 06/04/20 Range/Units 11:25 BUN (9-20) mg/dL Creatinine (0.66-1.25) mg/dL Glucose (74-99) mg/dL POC Glucose (mg/dL) 159 H (75-99) mg/dL Hemoglobin A1c (4.0-6.0) %
[2020-06-04] MEDS: CHOLECALCIFEROL 1,000 UNIT TAB PO SCH (11:55)
[2020-06-04] MEDS: CLOPIDOGREL 75 MG TAB PO SCH (11:57)
[2020-06-04] MEDS: LOSARTAN 50 MG TAB PO SCH (11:57)
[2020-06-04] MEDS: SODIUM CHLORIDE 0.9% 1,000 ML IV SCH (15:35)
[2020-06-04] MEDS ORDERED: FUROSEMIDE 80 MG TAB PO SCH (16:00)
[2020-06-04 16:51] LABS: Glucose,Whole Blood 242 mg/dL (75-99)
[2020-06-04 20:21] LABS: Glucose,Whole Blood 251 mg/dL (75-99)
[2020-06-04] MEDS: ATORVASTATIN 20 MG TAB PO SCH (20:30)
[2020-06-04] MEDS: FUROSEMIDE 10 MG/ML 10 ML VIAL IV SCH (20:30)
[2020-06-04] MEDS: INSULIN DETEMIR (LEVEMIR) 100 UNIT/ML SYR SQ SCH (20:30)
[2020-06-04] MEDS: SPIRONOLACTONE 25 MG TAB PO SCH (20:30)
[2020-06-04] MEDS: METOPROLOL TARTRATE 25 MG TAB PO SCH (20:30)
--- NOTE | 2020-06-05 01:15 | P.PN ---
Subjective Progress Note Date: 06/04/20 Principal diagnosis: Acute on chronic congestive heart failure exacerbation, EF 40-45%, This is a pleasant 79-year-old patient of Dr. matthew. Chronic stable medical conditions include coronary artery disease with bypass 2 with a redo in 2013 with aortic valve replacement. Also patient's stable condition to diabetes, hyperlipidemia, hypertension. In December of this year CROW-significant bioprosthetic aortic valve stenosis and regurgitation. cardiac catheterization.- Found to about 70% LAD lesion.-Stent was placed. Intervention for the valve postponed because of the COVID pandemic Patient now with presents with progressive increasing shortness of breath edema. Appetite is okay. No fever no chills. He has a chronic left lower extremity wound that [facility] Doctor rere that is draining. At baseline. No cough no phlegm. Admitted with-acute on chronic CHF exacerbation EF 40-45%. Started on Lasix drip. Also pending TAVR for outtake bioprosthetic valve stenosis or regurgitation. EKG tracing personally reviewed by me-atrial fibrillation rate in the 70s with a right bundle-branch block pattern Chest x-ray film personally reviewed by me-cardiomegaly pulmonary edema Previous testing CROW-shows significant prosthetic aortic valve stenosis and regurgitation. EF 40-45% Creatinine 0.77 in December 201906/03 -breathing is a bit better. Appetite improving. Edema is going down. Up to the bathroom. On 06/04/2020 Patient is currently sitting in the chair without any shortness of breath. Still having significant leg swelling which is improving. Lasix drip has been discontinued. Patient was started on IV Lasix currently. BUN is 50 and creatinine 1.66. Pulmonary and cardiology is following. Current medications reviewed. Review of systems: Was done for constitutional, cardiovascular, GI, pulmonary. relevant finding as above Active Medications Acetaminophen (Tylenol Tab) 650 mg PO Q6HR PRN PRN Reason: Fever and/ or Pain Last Admin: 06/03/20 22:59 Dose: 650 mg Documented by: Albuterol Sulfate (Ventolin Nebulized) 2.5 mg INHALATION RT-QID MAL Last Admin: 06/04/20 20:15 Dose: 2.5 mg Documented by: Albuterol/Ipratropium (Duoneb 0.5 Mg-3 Mg/3 Ml Soln) 3 ml INHALATION RT-Q4H PRN PRN Reason: Shortness Of Breath Or Wheezing Last Admin: 06/02/20 20:28 Dose: 3 ml Documented by: Apixaban (Eliquis) 2.5 mg PO BID [facility] Last Admin: 06/04/20 20:30 Dose: 2.5 mg Documented by: Aspirin (Aspirin) 81 mg PO DAILY [facility] Last Admin: 06/04/20 07:52 Dose: 81 mg Documented by: Atorvastatin Calcium (Lipitor) 20 mg PO [facility] Last Admin: 06/04/20 20:30 Dose: 20 mg Documented by: Cholecalciferol (Vitamin D3 (25 Mcg = 1000 Iu)) 5,000 unit PO DAILY@1200 [facility] Last Admin: 06/04/20 11:55 Dose: 5,000 unit Documented by: Clopidogrel Bisulfate (Plavix) 75 mg PO DAILY@1200 [facility] Last Admin: 06/04/20 11:57 Dose: 75 mg Documented by: Furosemide (Lasix) 60 mg IV Q12HR [facility] Last Admin: 06/04/20 20:30 Dose: 60 mg Documented by: Sodium Chloride (Saline 0.9%) 1,000 mls @ 20 mls/hr IV .Q24H [facility] Last Admin: 06/04/20 15:35 Dose: Not Given Documented by: Ibuprofen (Motrin) 600 mg PO QID [facility] Last Admin: 06/04/20 20:30 Dose: 600 mg Documented by: Insulin Aspart (Novolog) 0 unit SQ [facility]; Protocol Last Admin: 06/04/20 20:29 Dose: 6 unit Documented by: Insulin Detemir (Levemir) 20 unit SQ [facility] Last Admin: 06/04/20 20:30 Dose: 20 unit Documented by: Losartan Potassium (Cozaar) 50 mg PO DAILY@1200 [facility] Last Admin: 06/04/20 11:57 Dose: 50 mg Documented by: Metoprolol Tartrate (Lopressor) 25 mg PO [facility] Last Admin: 06/04/20 20:30 Dose: 25 mg Documented by: Ropinirole HCl (Requip) 0.25 mg PO HS PRN PRN Reason: RESTLESS LEGS/SLEEP Last Admin: 06/03/20 23:02 Dose: 0.25 mg Documented by: Silver Sulfadiazine (Silvadene Cream) 1 applic TOPICAL DAILY PRN PRN Reason: apply to legs Last Admin: 06/03/20 23:00 Dose: 1 applic Documented by: Spironolactone (Aldactone) 25 mg PO HS [facility] Last Admin: 06/04/20 20:30 Dose: 25 mg Documented by: Objective - Vital Signs Vital signs: Vital Signs Temp 97.4 F L 06/04/20 14:37 Pulse 62 06/04/20 14:37 Resp 18 06/04/20 14:37 BP 115/62 06/04/20 14:37 Pulse Ox 95 06/04/20 14:37 Intake & Output 06/03/20 06/04/20 06/04/20 18:59 06:59 18:59 Intake Total 279.000 293.833 225 Balance 279.000 293.833 225 Weight 103.7 kg Intake: Intake, IV Titration 179.000 93.833 Amount Furosemide 100 mg In 179.000 93.833 Sodium Chloride 0.9% 90 ml @ 10 MG/HR 10 mls/hr IV .Q10H [facility] Rx#: [id number] Oral 100 200 225 Other: Voiding Method Toilet Toilet # Voids 3 3 - Exam GENERAL: Sitting on the edge of the chair, breathing better EYES: Pupils equal. Conjunctiva normal. HEENT: External appearance of nose and ears normal, oral cavity grossly normal. NECK: JVD raised; masses not palpable. HEART: First and second heart sounds are normal; edema decreased LUNGS:[ Respiratory rate increased, decreased breath sound ABDOMEN: Soft, nontender slightly distended, liver spleen not palpable, no masses palpable. PSYCH: Alert and oriented x3; mood and affect normal. EXTREMITIES: Wound above the left lower extremity ankle - Labs CBC & Chem 7: 06/01/20 15:27 06/04/20 06:52 Labs: Abnormal Lab Results - Last 24 Hours (Table) 06/03/20 06/03/20 06/03/20 Range/Units 06:35 16:42 21:14 BUN (9-20) mg/dL Creatinine (0.66-1.25) mg/dL Glucose (74-99) mg/dL POC Glucose (mg/dL) 227 H 271 H (75-99) mg/dL Hemoglobin A1c 7.2 H (4.0-6.0) % 06/04/20 06/04/20 06/04/20 Range/Units 06:52 06:56 11:25 BUN 50 H (9-20) mg/dL Creatinine 1.66 H (0.66-1.25) mg/dL Glucose 119 H (74-99) mg/dL POC Glucose (mg/dL) 142 H 159 H (75-99) mg/dL Hemoglobin A1c (4.0-6.0) % Assessment and Plan Assessment: -Acute on chronic congestive heart failure exacerbation, EF 40-45%,-Dced Lasix drip. 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 jernigan Plan: Continue with daily Restasis. Repeat labs in the morning. Consulted nephrology. Care was discussed with the patient. Lower extremity wound being followed by wound care team. Time with Patient: Greater than 30
[2020-06-05 06:53] LABS: Glucose,Whole Blood 141 mg/dL (75-99)
[2020-06-05] MEDS: ASPIRIN 81 MG PO SCH (07:59)
[2020-06-05] MEDS: FUROSEMIDE 10 MG/ML 10 ML VIAL IV SCH (08:00)
[2020-06-05] MEDS: INSULIN ASPART (NovoLOG) 100 UNIT/ML VIAL SQ SCH ×4 (08:00→20:48)
[2020-06-05] MEDS: APIXABAN 2.5 MG TABLET PO SCH ×2 (08:00→20:48)
[2020-06-05] MEDS: IBUPROFEN 600 MG TAB PO SCH ×4 (08:00→20:48)
[2020-06-05] MEDS: ALBUTEROL NEBULIZED 2.5 MG/3 ML INHALATION SCH ×4 (08:54→19:49)
[2020-06-05 10:15] LABS: Basophils % (A) 0 %; Eosinophils # (A) 0.2 k/uL (0-0.7); Eosinophils % (A) 3 %; HCT 39.4 % (39.0-53.0); HGB 11.9 gm/dL (13.0-17.5); Hypochromasia Marked; Lymphocytes # (A) 0.8 k/uL (1.0-4.8); Lymphocytes % (A) 11 %; MCH 29.1 pg (25.0-35.0); MCHC 30.3 g/dL (31.0-37.0); MCV 96.3 fL (80.0-100.0); Mean Platelet Volume 9.7; Monocytes # (A) 0.6 k/uL (0-1.0); Monocytes % (A) 8 %; Neutrophils # (A) 5.5 k/uL (1.3-7.7); Neutrophils % (A) 77 %; Platelet Count 111 k/uL (150-450); Poikilocytosis Slight; RBC 4.09 m/uL (4.30-5.90); WBC 7.2 k/uL (3.8-10.6)
[2020-06-05 10:40] LABS: Calcium 8.5 mg/dL (8.4-10.2)
[2020-06-05 11:42] LABS: Glucose,Whole Blood 141 mg/dL (75-99)
[2020-06-05] MEDS: CLOPIDOGREL 75 MG TAB PO SCH (11:56)
[2020-06-05] MEDS: CHOLECALCIFEROL 1,000 UNIT TAB PO SCH (11:56)
[2020-06-05] MEDS: LOSARTAN 50 MG TAB PO SCH (11:57)
[2020-06-05] MEDS: IPRATROPIUM-ALBUTEROL 3 ML NEB INHALATION PRN (13:03)
[2020-06-05] MEDS: FUROSEMIDE 80 MG TAB PO SCH (16:16)
[2020-06-05 16:51] LABS: Glucose,Whole Blood 183 mg/dL (75-99)
[2020-06-05] MEDS: ACETAMINOPHEN TAB 325 MG TAB PO PRN (18:43)
[2020-06-05] MEDS: SODIUM CHLORIDE 0.9% 1,000 ML IV SCH (19:25)
[2020-06-05 20:46] LABS: Glucose,Whole Blood 231 mg/dL (75-99)
[2020-06-05] MEDS: METOPROLOL TARTRATE 25 MG TAB PO SCH (20:48)
[2020-06-05] MEDS: SPIRONOLACTONE 25 MG TAB PO SCH (20:48)
[2020-06-05] MEDS: ATORVASTATIN 20 MG TAB PO SCH (20:48)
[2020-06-05] MEDS: INSULIN DETEMIR (LEVEMIR) 100 UNIT/ML SYR SQ SCH (20:48)
[2020-06-06 07:03] LABS: Glucose,Whole Blood 114 mg/dL (75-99)
[2020-06-06] MEDS: INSULIN ASPART (NovoLOG) 100 UNIT/ML VIAL SQ SCH ×4 (07:11→20:50)
[2020-06-06] MEDS: IBUPROFEN 600 MG TAB PO SCH ×4 (07:15→23:13)
[2020-06-06] MEDS: ASPIRIN 81 MG PO SCH (07:15)
[2020-06-06] MEDS: APIXABAN 2.5 MG TABLET PO SCH ×2 (07:15→20:29)
[2020-06-06] MEDS: FUROSEMIDE 80 MG TAB PO SCH (07:15)
[2020-06-06] MEDS: ALBUTEROL NEBULIZED 2.5 MG/3 ML INHALATION SCH ×4 (08:04→19:41)
[2020-06-06 08:44] LABS: Calcium 8.7 mg/dL (8.4-10.2); Potassium 4.4 mmol/L (3.5-5.1)
[2020-06-06] MEDS ORDERED: FUROSEMIDE 10 MG/ML 10 ML VIAL IV STA (08:52)
--- NOTE | 2020-06-06 08:54 | P.PN ---
Subjective This is a pleasant 79-year-old male past medical history significant for coronary artery disease status post bypass grafting, valvular heart disease status post aortic valve replacement with bioprosthetic valve, hypertension, dyslipidemia and chronic persistent atrial fibrillation. He follows in the office with Dr. Fournier. He was previously scheduled to undergo TAVR however given the pandemic the procedure was cancelled. He is currently maintained on a Lasix infusion. He is seen and examined resting comfortably laying flat in bed in no acute distress on room air. He denies symptoms of worsening shortness of breath. He has no chest pain, dizziness or palpitations. An accurate documentation of output. His weight is down 2 kg from admission. Laboratory data reviewed, sodium 140, potassium 3.9, creatinine 1.66. Repeat chest x-ray this morning reveals improving venous congestion. Blood pressure 117/53 heart rate 92 afebrile and maintaining oxygen saturation on nasal cannula. Echocardiogram obtained reveals impaired LV systolic function with ejection fraction 40-45%, septal wall motion really consistent with prior cardiac surgery, mild to moderately enlarged right ventricle, moderate to severe stenosis of the bioprosthetic aortic valve with a mean gradient of 33 mmHg, mild MR, severe TR and severe pulmonary hypertension with RVSP of 70 mmHg. 06/05/2020 He denies shortness of breath, dizziness or palpitations. legs are still swollen with new area of weeping on the right. He has been up and walking without exert ional shortness of breath. GENERAL: Well-appearing, well-nourished and in no acute distress. NECK: Supple without JVD or thyromegaly. LUNGS: Breath sounds clear to auscultation bilaterally. Respiration equal and unlabored. No wheezes, rales or rhonchi. Diminished bilaterally. HEART: Regular rate and rhythm with systolic eject murmurs, rubs or gallops. S1 and S2 heard. EXTREMITIES: Normal range of motion, 1+ pitting edema bilaterally up to the knee with dressing in place to the left lower extremity with oozing noted on the dressing. No clubbing or cyanosis. Peripheral pulses intact. ASSESSMENT Acute on chronic systolic heart failure Valvular heart disease status post bioprosthetic valve replacement with subsequent stenosis awaiting TAVR Coronary artery disease status post bypass grafting Chronic persistent atrial fibrillation on long-term anticoagulation Diabetes mellitus Hypertension Dyslipidemia CVA 2015 PLAN Continue IV lasix. Repeat BMP in the morning. Nurse Practitioner note has been reviewed, I agree with a documented findings and plan of care. Patient was seen and examined. Objective - Vital Signs Vital signs: Vital Signs Temp 97.7 F 06/05/20 07:00 Pulse 84 06/05/20 13:17 Resp 16 06/05/20 10:06 BP 91/52 06/05/20 07:00 Pulse Ox 94 L 06/05/20 07:00 Intake & Output 06/04/20 06/05/20 06/05/20 18:59 06:59 18:59 Intake Total 225 Balance 225 Weight 103.7 kg 103.8 kg Intake: Oral 225 Other: Voiding Method Toilet Toilet - Labs CBC & Chem 7: 06/05/20 09:50 06/06/20 07:44 Labs: Abnormal Lab Results - Last 24 Hours (Table) 06/04/20 06/04/20 06/05/20 Range/Units 16:50 20:20 06:50 RBC (4.30-5.90) m/uL Hgb (13.0-17.5) gm/dL MCHC (31.0-37.0) g/dL RDW (11.5-15.5) % Plt Count (150-450) k/uL Lymphocytes # (1.0-4.8) k/uL BUN (9-20) mg/dL Creatinine (0.66-1.25) mg/dL Glucose (74-99) mg/dL POC Glucose (mg/dL) 242 H 251 H 141 H (75-99) mg/dL 06/05/20 06/05/20 06/05/20 Range/Units 09:50 09:50 11:40 RBC 4.09 L (4.30-5.90) m/uL Hgb 11.9 L (13.0-17.5) gm/dL MCHC 30.3 L (31.0-37.0) g/dL RDW 16.0 H (11.5-15.5) % Plt Count 111 L (150-450) k/uL Lymphocytes # 0.8 L (1.0-4.8) k/uL BUN 45 H (9-20) mg/dL Creatinine 1.35 H (0.66-1.25) mg/dL Glucose 147 H (74-99) mg/dL POC Glucose (mg/dL) 141 H (75-99) mg/dL
[2020-06-06 11:18] LABS: Glucose,Whole Blood 199 mg/dL (75-99)
[2020-06-06] MEDS: CHOLECALCIFEROL 1,000 UNIT TAB PO SCH (11:27)
[2020-06-06] MEDS: CLOPIDOGREL 75 MG TAB PO SCH (11:27)
[2020-06-06] MEDS: LOSARTAN 50 MG TAB PO SCH (11:27)
--- NOTE | 2020-06-06 11:39 | P.PN ---
Subjective This is a pleasant 79-year-old male past medical history significant for coronary artery disease status post bypass grafting, valvular heart disease status post aortic valve replacement with bioprosthetic valve, hypertension, dyslipidemia and chronic persistent atrial fibrillation. He follows in the office with Dr. Fournier. He was previously scheduled to undergo TAVR however given the pandemic the procedure was cancelled. He is currently maintained on a Lasix infusion. He is seen and examined resting comfortably laying flat in bed in no acute distress on room air. He denies symptoms of worsening shortness of breath. He has no chest pain, dizziness or palpitations. An accurate documentation of output. His weight is down 2 kg from admission. Laboratory data reviewed, sodium 140, potassium 3.9, creatinine 1.66. Repeat chest x-ray this morning reveals improving venous congestion. Blood pressure 117/53 heart rate 92 afebrile and maintaining oxygen saturation on nasal cannula. Echocardiogram obtained reveals impaired LV systolic function with ejection fraction 40-45%, septal wall motion really consistent with prior cardiac surgery, mild to moderately enlarged right ventricle, moderate to severe stenosis of the bioprosthetic aortic valve with a mean gradient of 33 mmHg, mild MR, severe TR and severe pulmonary hypertension with RVSP of 70 mmHg. 06/06/2020 He is seen and examined sitting up in the chair in no acute distress. He denies symptoms of shortness of breath, chest pain, dizziness or palpitations. He con tinues to have significant lower extremity edema but seems actually worse from yesterday. He has an area that is weeping on the right lower extremity and saturated dressings on the left. Blood pressure 123/60 heart rate 60 afebrile maintaining oxygen saturation on nasal cannula. Laboratory data reviewed, sodium 140, potassium 4.4, creatinine 1.4. GENERAL: Well-appearing, well-nourished and in no acute distress. NECK: Supple without JVD or thyromegaly. LUNGS: Breath sounds clear to auscultation bilaterally. Respiration equal and unlabored. No wheezes, rales or rhonchi. Diminished bilaterally. HEART: Regular rate and rhythm with systolic eject murmurs, rubs or gallops. S1 and S2 heard. EXTREMITIES: Normal range of motion, 2+ pitting edema bilaterally up to the knee with dressing in place to the left lower extremity with oozing noted on the dressing. No clubbing or cyanosis. Peripheral pulses intact. ASSESSMENT Acute on chronic systolic heart failure Valvular heart disease status post bioprosthetic valve replacement with subsequent stenosis awaiting TAVR Coronary artery disease status post bypass grafting Chronic persistent atrial fibrillation on long-term anticoagulation Diabetes mellitus Hypertension Dyslipidemia CVA 2016 PLAN Continue IV lasix. Repeat BMP in the morning. Nurse Practitioner note has been reviewed, I agree with a documented findings and plan of care. Patient was seen and examined. Objective - Vital Signs Vital signs: Vital Signs Temp 97.5 F L 06/06/20 07:00 Pulse 80 06/06/20 08:15 Resp 20 06/06/20 07:17 BP 123/60 06/06/20 07:00 Pulse Ox 94 L 06/06/20 07:00 Intake & Output 06/05/20 06/06/20 06/06/20 18:59 06:59 18:59 Weight 104 kg Other: Voiding Method Toilet Toilet Toilet - Labs CBC & Chem 7: 06/05/20 09:50 06/06/20 07:44 Labs: Abnormal Lab Results - Last 24 Hours (Table) 06/05/20 06/05/20 06/05/20 Range/Units 09:50 09:50 11:40 RBC 4.09 L (4.30-5.90) m/uL Hgb 11.9 L (13.0-17.5) gm/dL MCHC 30.3 L (31.0-37.0) g/dL RDW 16.0 H (11.5-15.5) % Plt Count 111 L (150-450) k/uL Lymphocytes # 0.8 L (1.0-4.8) k/uL BUN 45 H (9-20) mg/dL Creatinine 1.35 H (0.66-1.25) mg/dL Glucose 147 H (74-99) mg/dL POC Glucose (mg/dL) 141 H (75-99) mg/dL 06/05/20 06/05/20 06/06/20 Range/Units 16:48 20:44 06:59 RBC (4.30-5.90) m/uL Hgb (13.0-17.5) gm/dL MCHC (31.0-37.0) g/dL RDW (11.5-15.5) % Plt Count (150-450) k/uL Lymphocytes # (1.0-4.8) k/uL BUN (9-20) mg/dL Creatinine (0.66-1.25) mg/dL Glucose (74-99) mg/dL POC Glucose (mg/dL) 183 H 231 H 114 H (75-99) mg/dL 06/06/20 Range/Units 07:44 RBC (4.30-5.90) m/uL Hgb (13.0-17.5) gm/dL MCHC (31.0-37.0) g/dL RDW (11.5-15.5) % Plt Count (150-450) k/uL Lymphocytes # (1.0-4.8) k/uL BUN 49 H (9-20) mg/dL Creatinine 1.40 H (0.66-1.25) mg/dL Glucose (74-99) mg/dL POC Glucose (mg/dL) (75-99) mg/dL
[2020-06-06] MEDS: FUROSEMIDE 10 MG/ML 10 ML VIAL IV SCH (15:23)
[2020-06-06 17:00] LABS: Glucose,Whole Blood 165 mg/dL (75-99)
[2020-06-06] MEDS: SODIUM CHLORIDE 0.9% 1,000 ML IV SCH (20:06)
[2020-06-06] MEDS: SPIRONOLACTONE 25 MG TAB PO SCH (20:29)
[2020-06-06] MEDS: ATORVASTATIN 20 MG TAB PO SCH (20:29)
[2020-06-06] MEDS: METOPROLOL TARTRATE 25 MG TAB PO SCH (20:29)
[2020-06-06 20:37] LABS: Glucose,Whole Blood 261 mg/dL (75-99)
[2020-06-06] MEDS: INSULIN DETEMIR (LEVEMIR) 100 UNIT/ML SYR SQ SCH (20:49)
--- NOTE | 2020-06-06 23:48 | P.PN ---
Subjective Progress Note Date: 06/05/20 Principal diagnosis: Acute on chronic congestive heart failure exacerbation, EF 40-45%, This is a pleasant 79-year-old patient of Dr. matthew. Chronic stable medical conditions include coronary artery disease with bypass 2 with a redo in 2013 with aortic valve replacement. Also patient's stable condition to diabetes, hyperlipidemia, hypertension. In December of this year CROW-significant bioprosthetic aortic valve stenosis and regurgitation. cardiac catheterization.- Found to about 70% LAD lesion.-Stent was placed. Intervention for the valve postponed because of the COVID pandemic Patient now with presents with progressive increasing shortness of breath edema. Appetite is okay. No fever no chills. He has a chronic left lower extremity wound that he follows [facility] Doctor rere that is draining. At baseline. No cough no phlegm. Admitted with-acute on chronic CHF exacerbation EF 40-45%. Started on Lasix drip. Also pending TAVR for outtake bioprosthetic valve stenosis or regurgitation. EKG tracing personally reviewed by me-atrial fibrillation rate in the 70s with a right bundle-branch block pattern Chest x-ray film personally reviewed by me-cardiomegaly pulmonary edema Previous testing CROW-shows significant prosthetic aortic valve stenosis and regurgitation. EF 40-45% Creatinine 0.77 in December 201906/03 -breathing is a bit better. Appetite improving. Edema is going down. Up to the bathroom. On 06/04/2020 Patient is currently sitting in the chair without any shortness of breath. Still having significant leg swelling which is improving. Lasix drip has been discontinued. Patient was started on IV Lasix currently. BUN is 50 and creatinine 1.66. Pulmonary and cardiology is following. 06/05/2020 Patient is currently sitting on side of the bed comfortably. No complaints of chest pain or worsening shortness of breath. No headache or dizziness or palpitations. Laboratory data showed WBC 7.2, hemoglobin 0.9 and platelets 111 BUN 45 and creatinine 1.35 Patient is being continued IV Lasix. Cardiology is following. Current medications reviewed. Review of systems: Was done for constitutional, cardiovascular, GI, pulmonary. relevant finding as above Active Medications Acetaminophen (Tylenol Tab) 650 mg PO Q6HR PRN PRN Reason: Fever and/ or Pain Last Admin: 06/03/20 22:59 Dose: 650 mg Documented by: Albuterol Sulfate (Ventolin Nebulized) 2.5 mg INHALATION RT-QID [facility] Last Admin: 06/04/20 20:15 Dose: 2.5 mg Documented by: Albuterol/Ipratropium (Duoneb 0.5 Mg-3 Mg/3 Ml Soln) 3 ml INHALATION RT-Q4H PRN PRN Reason: Shortness Of Breath Or Wheezing Last Admin: 06/02/20 20:28 Dose: 3 ml Documented by: Apixaban (Eliquis) 2.5 mg PO BID [facility] Last Admin: 06/04/20 20:30 Dose: 2.5 mg Documented by: Aspirin (Aspirin) 81 mg PO DAILY [facility] Last Admin: 06/04/20 07:52 Dose: 81 mg Documented by: Atorvastatin Calcium (Lipitor) 20 mg PO [facility] Last Admin: 06/04/20 20:30 Dose: 20 mg Documented by: Cholecalciferol (Vitamin D3 (25 Mcg = 1000 Iu)) 5,000 unit PO DAILY@1200 [facility] Last Admin: 06/04/20 11:55 Dose: 5,000 unit Documented by: Clopidogrel Bisulfate (Plavix) 75 mg PO DAILY@1200 [facility] Last Admin: 06/04/20 11:57 Dose: 75 mg Documented by: Furosemide (Lasix) 60 mg IV Q12HR [facility] Last Admin: 06/04/20 20:30 Dose: 60 mg Documented by: Sodium Chloride (Saline 0.9%) 1,000 mls @ 20 mls/hr IV .Q24H [facility] Last Admin: 06/04/20 15:35 Dose: Not Given Documented by: Ibuprofen (Motrin) 600 mg PO QID [facility] Last Admin: 06/04/20 20:30 Dose: 600 mg Documented by: Insulin Aspart (Novolog) 0 unit SQ [facility]; Protocol Last Admin: 06/04/20 20:29 Dose: 6 unit Documented by: Insulin Detemir (Levemir) 20 unit SQ [facility] Last Admin: 06/04/20 20:30 Dose: 20 unit Documented by: Losartan Potassium (Cozaar) 50 mg PO DAILY@1200 [facility] Last Admin: 06/04/20 11:57 Dose: 50 mg Documented by: Metoprolol Tartrate (Lopressor) 25 mg PO [facility] Last Admin: 06/04/20 20:30 Dose: 25 mg Documented by: Ropinirole HCl (Requip) 0.25 mg PO HS PRN PRN Reason: RESTLESS LEGS/SLEEP Last Admin: 06/03/20 23:02 Dose: 0.25 mg Documented by: Silver Sulfadiazine (Silvadene Cream) 1 applic TOPICAL DAILY PRN PRN Reason: apply to legs Last Admin: 06/03/20 23:00 Dose: 1 applic Documented by: Spironolactone (Aldactone) 25 mg PO HS [facility] Last Admin: 06/04/20 20:30 Dose: 25 mg Documented by: Objective - Vital Signs Vital signs: Vital Signs Temp 97.7 F 06/05/20 07:00 Pulse 84 06/05/20 13:17 Resp 16 06/05/20 10:06 BP 91/52 06/05/20 07:00 Pulse Ox 94 L 06/05/20 07:00 Intake & Output 06/04/20 06/05/20 06/05/20 18:59 06:59 18:59 Intake Total 225 Balance 225 Weight 103.7 kg 103.8 kg Intake: Oral 225 Other: Voiding Method Toilet Toilet - Exam GENERAL: Sitting on the edge of the chair, breathing better EYES: Pupils equal. Conjunctiva normal. HEENT: External appearance of nose and ears normal, oral cavity grossly normal. NECK: JVD raised; masses not palpable. HEART: First and second heart sounds are normal; edema decreased LUNGS:[ Respiratory rate increased, decreased breath sound ABDOMEN: Soft, nontender slightly distended, liver spleen not palpable, no masses palpable. PSYCH: Alert and oriented x3; mood and affect normal. EXTREMITIES: Wound above the left lower extremity ankle - Labs CBC & Chem 7: 06/05/20 09:50 06/06/20 07:44 Labs: Abnormal Lab Results - Last 24 Hours (Table) 06/04/20 06/04/20 06/05/20 Range/Units 16:50 20:20 06:50 RBC (4.30-5.90) m/uL Hgb (13.0-17.5) gm/dL MCHC (31.0-37.0) g/dL RDW (11.5-15.5) % Plt Count (150-450) k/uL Lymphocytes # (1.0-4.8) k/uL BUN (9-20) mg/dL Creatinine (0.66-1.25) mg/dL Glucose (74-99) mg/dL POC Glucose (mg/dL) 242 H 251 H 141 H (75-99) mg/dL 06/05/20 06/05/20 06/05/20 Range/Units 09:50 09:50 11:40 RBC 4.09 L (4.30-5.90) m/uL Hgb 11.9 L (13.0-17.5) gm/dL MCHC 30.3 L (31.0-37.0) g/dL RDW 16.0 H (11.5-15.5) % Plt Count 111 L (150-450) k/uL Lymphocytes # 0.8 L (1.0-4.8) k/uL BUN 45 H (9-20) mg/dL Creatinine 1.35 H (0.66-1.25) mg/dL Glucose 147 H (74-99) mg/dL POC Glucose (mg/dL) 141 H (75-99) mg/dL Assessment and Plan Assessment: -Acute on chronic congestive heart failure exacerbation, EF 40-45%,-Dced Lasix drip. 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 jernigan Plan: Continue with daily Restasis. Repeat labs in the morning. Cardiology and nephrology is following.. Care was discussed with the patient. Lower extremity wound being followed by wound care team. Time with Patient: Greater than 30
--- NOTE | 2020-06-06 23:50 | P.PN ---
Subjective Progress Note Date: 06/06/20 Principal diagnosis: Acute on chronic congestive heart failure exacerbation, EF 40-45%, This is a pleasant 79-year-old patient of Dr. matthew. Chronic stable medical conditions include coronary artery disease with bypass 2 with a redo in 2013 with aortic valve replacement. Also patient's stable condition to diabetes, hyperlipidemia, hypertension. In December of this year CROW-significant bioprosthetic aortic valve stenosis and regurgitation. cardiac catheterization.- Found to about 70% LAD lesion.-Stent was placed. Intervention for the valve postponed because of the COVID pandemic Patient now with presents with progressive increasing shortness of breath edema. Appetite is okay. No fever no chills. He has a chronic left lower extremity wound that he follows at [facility] Doctor rere that is draining. At baseline. No cough no phlegm. Admitted with-acute on chronic CHF exacerbation EF 40-45%. Started on Lasix drip. Also pending TAVR for outtake bioprosthetic valve stenosis or regurgitation. EKG tracing personally reviewed by me-atrial fibrillation rate in the 70s with a right bundle-branch block pattern Chest x-ray film personally reviewed by me-cardiomegaly pulmonary edema Previous testing CROW-shows significant prosthetic aortic valve stenosis and regurgitation. EF 40-45% Creatinine 0.77 in December 201906/03 -breathing is a bit better. Appetite improving. Edema is going down. Up to the bathroom. On 06/04/2020 Patient is currently sitting in the chair without any shortness of breath. Still having significant leg swelling which is improving. Lasix drip has been discontinued. Patient was started on IV Lasix currently. BUN is 50 and creatinine 1.66. Pulmonary and cardiology is following. 06/05/2020 Patient is currently sitting on side of the bed comfortably. No complaints of chest pain or worsening shortness of breath. No headache or dizziness or palpitations. Laboratory data showed WBC 7.2, hemoglobin 0.9 and platelets 111 BUN 45 and creatinine 1.35 Patient is being continued IV Lasix. Cardiology is following. 06/06/2020 Patient is currently sitting on the side of the bed comfortably. No complaints of chest pain or shortness of breath. Leg swelling is improving slowly. Currently on room air. No chest pain. No fever no chills. Laboratory data showed sodium 140, potassium 4.4, BUN 49 and creatinine 1.4 Patient is being continued on IV Lasix. Cardiology is on board. Current medications reviewed. Review of systems: Was done for constitutional, cardiovascular, GI, pulmonary. relevant finding as above Active Medications Acetaminophen (Tylenol Tab) 650 mg PO Q6HR PRN PRN Reason: Fever and/ or Pain Last Admin: 06/03/20 22:59 Dose: 650 mg Documented by: Albuterol Sulfate (Ventolin Nebulized) 2.5 mg INHALATION RT-QID [facility] Last Admin: 06/04/20 20:15 Dose: 2.5 mg Documented by: Albuterol/Ipratropium (Duoneb 0.5 Mg-3 Mg/3 Ml Soln) 3 ml INHALATION RT-Q4H PRN PRN Reason: Shortness Of Breath Or Wheezing Last Admin: 06/02/20 20:28 Dose: 3 ml Documented by: Apixaban (Eliquis) 2.5 mg PO BID [facility] Last Admin: 06/04/20 20:30 Dose: 2.5 mg Documented by: Aspirin (Aspirin) 81 mg PO DAILY [facility] Last Admin: 06/04/20 07:52 Dose: 81 mg Documented by: Atorvastatin Calcium (Lipitor) 20 mg PO HS [facility] Last Admin: 06/04/20 20:30 Dose: 20 mg Documented by: Cholecalciferol (Vitamin D3 (25 Mcg = 1000 Iu)) 5,000 unit PO DAILY@1200 [facility] Last Admin: 06/04/20 11:55 Dose: 5,000 unit Documented by: Clopidogrel Bisulfate (Plavix) 75 mg PO DAILY@1200 [facility] Last Admin: 06/04/20 11:57 Dose: 75 mg Documented by: Furosemide (Lasix) 60 mg IV Q12HR [facility] Last Admin: 06/04/20 20:30 Dose: 60 mg Documented by: Sodium Chloride (Saline 0.9%) 1,000 mls @ 20 mls/hr IV .Q24H [facility] Last Admin: 06/04/20 15:35 Dose: Not Given Documented by: Ibuprofen (Motrin) 600 mg PO QID [facility] Last Admin: 06/04/20 20:30 Dose: 600 mg Documented by: Insulin Aspart (Novolog) 0 unit SQ [facility]; Protocol Last Admin: 06/04/20 20:29 Dose: 6 unit Documented by: Insulin Detemir (Levemir) 20 unit SQ [facility] Last Admin: 06/04/20 20:30 Dose: 20 unit Documented by: Losartan Potassium (Cozaar) 50 mg PO DAILY@1200 [facility] Last Admin: 06/04/20 11:57 Dose: 50 mg Documented by: Metoprolol Tartrate (Lopressor) 25 mg PO [facility] Last Admin: 06/04/20 20:30 Dose: 25 mg Documented by: Ropinirole HCl (Requip) 0.25 mg PO HS PRN PRN Reason: RESTLESS LEGS/SLEEP Last Admin: 06/03/20 23:02 Dose: 0.25 mg Documented by: Silver Sulfadiazine (Silvadene Cream) 1 applic TOPICAL DAILY PRN PRN Reason: apply to legs Last Admin: 06/03/20 23:00 Dose: 1 applic Documented by: Spironolactone (Aldactone) 25 mg PO [facility] Last Admin: 06/04/20 20:30 Dose: 25 mg Documented by: Objective - Vital Signs Vital signs: Vital Signs Temp 97.9 F 06/06/20 20:06 Pulse 96 06/06/20 20:06 Resp 20 06/06/20 20:06 BP 125/73 06/06/20 20:06 Pulse Ox 95 06/06/20 20:06 Intake & Output 06/06/20 06/06/20 06/07/20 06:59 18:59 06:59 Weight 104 kg Other: Voiding Method Toilet Toilet - Exam GENERAL: Sitting on the edge of the chair, breathing better EYES: Pupils equal. Conjunctiva normal. HEENT: External appearance of nose and ears normal, oral cavity grossly normal. NECK: JVD raised; masses not palpable. HEART: First and second heart sounds are normal; edema decreased LUNGS:[ Respiratory rate increased, decreased breath sound ABDOMEN: Soft, nontender slightly distended, liver spleen not palpable, no masses palpable. PSYCH: Alert and oriented x3; mood and affect normal. EXTREMITIES: Wound above the left lower extremity ankle - Labs CBC & Chem 7: 06/05/20 09:50 06/06/20 07:44 Labs: Abnormal Lab Results - Last 24 Hours (Table) 06/06/20 06/06/20 06/06/20 Range/Units 06:59 07:44 11:16 BUN 49 H (9-20) mg/dL Creatinine 1.40 H (0.66-1.25) mg/dL POC Glucose (mg/dL) 114 H 199 H (75-99) mg/dL 06/06/20 06/06/20 Range/Units 16:59 20:35 BUN (9-20) mg/dL Creatinine (0.66-1.25) mg/dL POC Glucose (mg/dL) 165 H 261 H (75-99) mg/dL Assessment and Plan Assessment: -Acute on chronic congestive heart failure exacerbation, EF 40-45%,-Dced Lasix drip. 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 jernigan Plan: Continue with daily Restasis. Repeat labs in the morning. Cardiology and nephrology is following.. Care was discussed with the patient. Lower extremity wound being followed by wound care team. Time with Patient: Greater than 30
[2020-06-07] MEDS: FUROSEMIDE 10 MG/ML 10 ML VIAL IV SCH ×2 (04:38→14:53)
[2020-06-07 07:09] LABS: Glucose,Whole Blood 148 mg/dL (75-99)
[2020-06-07] MEDS: APIXABAN 2.5 MG TABLET PO SCH ×2 (07:39→20:55)
[2020-06-07] MEDS: IBUPROFEN 600 MG TAB PO SCH ×4 (07:39→20:54)
[2020-06-07] MEDS: ASPIRIN 81 MG PO SCH (07:40)
[2020-06-07] MEDS: INSULIN ASPART (NovoLOG) 100 UNIT/ML VIAL SQ SCH ×4 (07:40→20:54)
[2020-06-07 08:12] LABS: Calcium 8.4 mg/dL (8.4-10.2); Potassium 4.6 mmol/L (3.5-5.1)
[2020-06-07] MEDS: ALBUTEROL NEBULIZED 2.5 MG/3 ML INHALATION SCH ×4 (08:21→20:22)
--- NOTE | 2020-06-07 10:47 | P.PN ---
Subjective This is a pleasant 79-year-old male past medical history significant for coronary artery disease status post bypass grafting, valvular heart disease status post aortic valve replacement with bioprosthetic valve, hypertension, dyslipidemia and chronic persistent atrial fibrillation. He follows in the office with Dr. Fournier. He was previously scheduled to undergo TAVR however given the pandemic the procedure was cancelled. He is currently maintained on a Lasix infusion. He is seen and examined resting comfortably laying flat in bed in no acute distress on room air. He denies symptoms of worsening shortness of breath. He has no chest pain, dizziness or palpitations. An accurate documentation of output. His weight is down 2 kg from admission. Laboratory data reviewed, sodium 140, potassium 3.9, creatinine 1.66. Repeat chest x-ray this morning reveals improving venous congestion. Blood pressure 117/53 heart rate 92 afebrile and maintaining oxygen saturation on nasal cannula. Echocardiogram obtained reveals impaired LV systolic function with ejection fraction 40-45%, septal wall motion really consistent with prior cardiac surgery, mild to moderately enlarged right ventricle, moderate to severe stenosis of the bioprosthetic aortic valve with a mean gradient of 33 mmHg, mild MR, severe TR and severe pulmonary hypertension with RVSP of 70 mmHg. 06/07/2020 He is seen and examined sitting up in the chair in no acute distress. He denies symptoms of shortness of breath, chest pain, dizziness or palpitations. He con tinues to have significant lower extremity edema with mild improvement from yesterday. He no longer has weeping. Dressings are in place to the left lower extremity. Blood pressure 129/68 heart rate 78 afebrile maintaining oxygen saturation on nasal cannula. Laboratory data reviewed, sodium 139, potassium 4.6, creatinine 1.19. There is no documented output. GENERAL: Well-appearing, well-nourished and in no acute distress. NECK: Supple without JVD or thyromegaly. LUNGS: Breath sounds clear to auscultation bilaterally. Respiration equal and unlabored. No wheezes, rales or rhonchi. Diminished bilaterally. HEART: Regular rate and rhythm with systolic eject murmurs, rubs or gallops. S1 and S2 heard. EXTREMITIES: Normal range of motion, 2+ pitting edema bilaterally up to the knee with dressing in place to the left lower extremity with oozing noted on the dressing. No clubbing or cyanosis. Peripheral pulses intact. ASSESSMENT Acute on chronic systolic heart failure Valvular heart disease status post bioprosthetic valve replacement with subsequent stenosis awaiting TAVR Coronary artery disease status post bypass grafting Chronic persistent atrial fibrillation on long-term anticoagulation Diabetes mellitus Hypertension Dyslipidemia CVA 2016 PLAN Continue IV lasix. Repeat BMP in the morning. Nurse Practitioner note has been reviewed, I agree with a documented findings and plan of care. Patient was seen and examined. Objective - Vital Signs Vital signs: Vital Signs Temp 98.0 F 06/07/20 07:00 Pulse 78 06/07/20 08:32 Resp 16 06/07/20 07:45 BP 129/68 06/07/20 07:00 Pulse Ox 95 06/07/20 08:21 Intake & Output 06/06/20 06/07/20 06/07/20 18:59 06:59 18:59 Other: Voiding Method Toilet Toilet - Labs CBC & Chem 7: 06/05/20 09:50 06/07/20 07:47 Labs: Abnormal Lab Results - Last 24 Hours (Table) 06/06/20 06/06/20 06/06/20 Range/Units 11:16 16:59 20:35 Carbon Dioxide (22-30) mmol/L BUN (9-20) mg/dL Glucose (74-99) mg/dL POC Glucose (mg/dL) 199 H 165 H 261 H (75-99) mg/dL 06/07/20 06/07/20 Range/Units 07:04 07:47 Carbon Dioxide 31 H (22-30) mmol/L BUN 45 H (9-20) mg/dL Glucose 170 H (74-99) mg/dL POC Glucose (mg/dL) 148 H (75-99) mg/dL
[2020-06-07 11:56] LABS: Glucose,Whole Blood 147 mg/dL (75-99)
[2020-06-07] MEDS: LOSARTAN 50 MG TAB PO SCH (11:57)
[2020-06-07] MEDS: CHOLECALCIFEROL 1,000 UNIT TAB PO SCH (11:58)
[2020-06-07] MEDS: CLOPIDOGREL 75 MG TAB PO SCH (11:58)
[2020-06-07] MEDS: SODIUM CHLORIDE 0.9% 1,000 ML IV SCH (14:53)
[2020-06-07 16:53] LABS: Glucose,Whole Blood 193 mg/dL (75-99)
[2020-06-07] MEDS: ACETAMINOPHEN TAB 325 MG TAB PO PRN (19:34)
[2020-06-07 20:18] LABS: Glucose,Whole Blood 210 mg/dL (75-99)
[2020-06-07] MEDS: ATORVASTATIN 20 MG TAB PO SCH (20:55)
[2020-06-07] MEDS: METOPROLOL TARTRATE 25 MG TAB PO SCH (20:55)
[2020-06-07] MEDS: SPIRONOLACTONE 25 MG TAB PO SCH (20:55)
[2020-06-07] MEDS: INSULIN DETEMIR (LEVEMIR) 100 UNIT/ML SYR SQ SCH (20:55)
--- NOTE | 2020-06-08 01:05 | P.PN ---
Subjective Progress Note Date: 06/07/20 Principal diagnosis: Acute on chronic congestive heart failure exacerbation, EF 40-45%, This is a pleasant 79-year-old patient of Dr. matthew. Chronic stable medical conditions include coronary artery disease with bypass 2 with a redo in 2013 with aortic valve replacement. Also patient's stable condition to diabetes, hyperlipidemia, hypertension. In December of this year CROW-significant bioprosthetic aortic valve stenosis and regurgitation. cardiac catheterization.- Found to about 70% LAD lesion.-Stent was placed. Intervention for the valve postponed because of the COVID pandemic Patient now with presents with progressive increasing shortness of breath edema. Appetite is okay. No fever no chills. He has a chronic left lower extremity wound that [facility] Doctor rere that is draining. At baseline. No cough no phlegm. Admitted with-acute on chronic CHF exacerbation EF 40-45%. Started on Lasix drip. Also pending TAVR for outtake bioprosthetic valve stenosis or regurgitation. EKG tracing personally reviewed by me-atrial fibrillation rate in the 70s with a right bundle-branch block pattern Chest x-ray film personally reviewed by me-cardiomegaly pulmonary edema Previous testing CROW-shows significant prosthetic aortic valve stenosis and regurgitation. EF 40-45% Creatinine 0.77 in December 201906/03 -breathing is a bit better. Appetite improving. Edema is going down. Up to the bathroom. On 06/04/2020 Patient is currently sitting in the chair without any shortness of breath. Still having significant leg swelling which is improving. Lasix drip has been discontinued. Patient was started on IV Lasix currently. BUN is 50 and creatinine 1.66. Pulmonary and cardiology is following. 06/05/2020 Patient is currently sitting on side of the bed comfortably. No complaints of chest pain or worsening shortness of breath. No headache or dizziness or palpitations. Laboratory data showed WBC 7.2, hemoglobin 0.9 and platelets 111 BUN 45 and creatinine 1.35 Patient is being continued IV Lasix. Cardiology is following. 06/06/2020 Patient is currently sitting on the side of the bed comfortably. No complaints of chest pain or shortness of breath. Leg swelling is improving slowly. Currently on room air. No chest pain. No fever no chills. Laboratory data showed sodium 140, potassium 4.4, BUN 49 and creatinine 1.4 Patient is being continued on IV Lasix. Cardiology is on board. 06/07/2020 Patient is currently sitting in the chair comfortably. Denies any complaints of chest pain or shortness of breath. Continues to have bilateral lower extremity significant edema and legs are Lloyd wrapped. Patient has been afebrile. No nausea vomiting abdominal pain or diarrhea. Lab data showed sodium 139, potassium 4.6, bicarb is 31 and BUN 45 and creatinine 1.19. Patient is being continued on Lasix 80 mg IV every 12. Current medications reviewed. Review of systems: Was done for constitutional, cardiovascular, GI, pulmonary. relevant finding as above Active Medications Acetaminophen (Tylenol Tab) 650 mg PO Q6HR PRN PRN Reason: Fever and/ or Pain Last Admin: 06/03/20 22:59 Dose: 650 mg Documented by: Albuterol Sulfate (Ventolin Nebulized) 2.5 mg INHALATION RT-QID [facility] Last Admin: 06/04/20 20:15 Dose: 2.5 mg Documented by: Albuterol/Ipratropium (Duoneb 0.5 Mg-3 Mg/3 Ml Soln) 3 ml INHALATION RT-Q4H PRN PRN Reason: Shortness Of Breath Or Wheezing Last Admin: 06/02/20 20:28 Dose: 3 ml Documented by: Apixaban (Eliquis) 2.5 mg PO BID [facility] Last Admin: 06/04/20 20:30 Dose: 2.5 mg Documented by: Aspirin (Aspirin) 81 mg PO DAILY [facility] Last Admin: 06/04/20 07:52 Dose: 81 mg Documented by: Atorvastatin Calcium (Lipitor) 20 mg PO HS [facility] Last Admin: 06/04/20 20:30 Dose: 20 mg Documented by: Cholecalciferol (Vitamin D3 (25 Mcg = 1000 Iu)) 5,000 unit PO DAILY@1200 [facility] Last Admin: 06/04/20 11:55 Dose: 5,000 unit Documented by: Clopidogrel Bisulfate (Plavix) 75 mg PO DAILY@1200 [facility] Last Admin: 06/04/20 11:57 Dose: 75 mg Documented by: Furosemide (Lasix) 60 mg IV Q12HR [facility] Last Admin: 06/04/20 20:30 Dose: 60 mg Documented by: Sodium Chloride (Saline 0.9%) 1,000 mls @ 20 mls/hr IV .Q24H [facility] Last Admin: 06/04/20 15:35 Dose: Not Given Documented by: Ibuprofen (Motrin) 600 mg PO QID [facility] Last Admin: 06/04/20 20:30 Dose: 600 mg Documented by: Insulin Aspart (Novolog) 0 unit SQ [facility]; Protocol Last Admin: 06/04/20 20:29 Dose: 6 unit Documented by: Insulin Detemir (Levemir) 20 unit SQ [facility] Last Admin: 06/04/20 20:30 Dose: 20 unit Documented by: Losartan Potassium (Cozaar) 50 mg PO DAILY@1200 [facility] Last Admin: 06/04/20 11:57 Dose: 50 mg Documented by: Metoprolol Tartrate (Lopressor) 25 mg PO [facility] Last Admin: 06/04/20 20:30 Dose: 25 mg Documented by: Ropinirole HCl (Requip) 0.25 mg PO HS PRN PRN Reason: RESTLESS LEGS/SLEEP Last Admin: 06/03/20 23:02 Dose: 0.25 mg Documented by: Silver Sulfadiazine (Silvadene Cream) 1 applic TOPICAL DAILY PRN PRN Reason: apply to legs Last Admin: 06/03/20 23:00 Dose: 1 applic Documented by: Spironolactone (Aldactone) 25 mg PO [facility] Last Admin: 06/04/20 20:30 Dose: 25 mg Documented by: Objective - Vital Signs Vital signs: Vital Signs Temp 97.6 F 06/07/20 19:00 Pulse 91 06/07/20 20:54 Resp 19 06/07/20 19:00 BP 105/62 06/07/20 20:54 Pulse Ox 96 06/07/20 19:00 Intake & Output 06/07/20 06/07/20 06/08/20 06:59 18:59 06:59 Weight 103.1 kg Other: Voiding Method Toilet Toilet # Voids 1 - Exam GENERAL: Sitting on the edge of the chair, breathing better EYES: Pupils equal. Conjunctiva normal. HEENT: External appearance of nose and ears normal, oral cavity grossly normal. NECK: JVD raised; masses not palpable. HEART: First and second heart sounds are normal; edema decreased LUNGS:[ Respiratory rate increased, decreased breath sound ABDOMEN: Soft, nontender slightly distended, liver spleen not palpable, no masses palpable. PSYCH: Alert and oriented x3; mood and affect normal. EXTREMITIES: Wound above the left lower extremity ankle - Labs CBC & Chem 7: 06/05/20 09:50 06/07/20 07:47 Labs: Abnormal Lab Results - Last 24 Hours (Table) 06/07/20 06/07/20 06/07/20 Range/Units 07:04 07:47 11:54 Carbon Dioxide 31 H (22-30) mmol/L BUN 45 H (9-20) mg/dL Glucose 170 H (74-99) mg/dL POC Glucose (mg/dL) 148 H 147 H (75-99) mg/dL 06/07/20 06/07/20 Range/Units 16:52 20:17 Carbon Dioxide (22-30) mmol/L BUN (9-20) mg/dL Glucose (74-99) mg/dL POC Glucose (mg/dL) 193 H 210 H (75-99) mg/dL Assessment and Plan Assessment: -Acute on chronic congestive heart failure exacerbation, EF 40-45%,-Dced Lasix drip. 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 jernigan Plan: Continue with IV lasix. Repeat labs in the morning. Cardiology and nephrology is following.. Care was discussed with the patient. Lower extremity wound being followed by wound care team. Time with Patient: Greater than 30
[2020-06-08] MEDS: FUROSEMIDE 10 MG/ML 10 ML VIAL IV SCH (04:44)
[2020-06-08 06:50] LABS: Glucose,Whole Blood 160 mg/dL (75-99)
[2020-06-08] MEDS: IBUPROFEN 600 MG TAB PO SCH ×2 (07:26→11:58)
[2020-06-08] MEDS: INSULIN ASPART (NovoLOG) 100 UNIT/ML VIAL SQ SCH ×2 (07:26→12:00)
[2020-06-08] MEDS: ASPIRIN 81 MG PO SCH (07:26)
[2020-06-08] MEDS: APIXABAN 2.5 MG TABLET PO SCH (07:26)
[2020-06-08] MEDS: ALBUTEROL NEBULIZED 2.5 MG/3 ML INHALATION SCH ×3 (09:00→15:32)
[2020-06-08 09:11] LABS: Calcium 8.7 mg/dL (8.4-10.2); Potassium 4.6 mmol/L (3.5-5.1)
[2020-06-08 10:19] VITALS: BMI 31.6
[2020-06-08 11:30] LABS: Glucose,Whole Blood 160 mg/dL (75-99)
[2020-06-08] MEDS: LOSARTAN 50 MG TAB PO SCH (11:58)
[2020-06-08] MEDS: CHOLECALCIFEROL 1,000 UNIT TAB PO SCH (11:58)
[2020-06-08] MEDS: CLOPIDOGREL 75 MG TAB PO SCH (11:58)
--- NOTE | 2020-06-08 13:32 | P.PN ---
Subjective This is a pleasant 79-year-old male past medical history significant for coronary artery disease status post bypass grafting, valvular heart disease status post aortic valve replacement with bioprosthetic valve, hypertension, dyslipidemia and chronic persistent atrial fibrillation. He follows in the office with Dr. Fournier. He was previously scheduled to undergo TAVR however given the pandemic the procedure was cancelled. He is currently maintained on a Lasix infusion. He is seen and examined resting comfortably laying flat in bed in no acute distress on room air. He denies symptoms of worsening shortness of breath. He has no chest pain, dizziness or palpitations. An accurate documentation of output. His weight is down 2 kg from admission. Laboratory data reviewed, sodium 140, potassium 3.9, creatinine 1.66. Repeat chest x-ray this morning reveals improving venous congestion. Blood pressure 117/53 heart rate 92 afebrile and maintaining oxygen saturation on nasal cannula. Echocardiogram obtained reveals impaired LV systolic function with ejection fraction 40-45%, septal wall motion really consistent with prior cardiac surgery, mild to moderately enlarged right ventricle, moderate to severe stenosis of the bioprosthetic aortic valve with a mean gradient of 33 mmHg, mild MR, severe TR and severe pulmonary hypertension with RVSP of 70 mmHg. 06/08/2020 He is seen and examined resting comfortably in no acute distress. He has no symptoms of shortness of breath. Ongoing lower extremity edema has slightly improved since yesterday. Blood pressure 125/68 heart rate 81 afebrile maintaining oxygen saturation on room air. Laboratory data reviewed, sodium 139, potassium 4.6, creatinine 1.17. GENERAL: Well-appearing, well-nourished and in no acute distress. NECK: Supple without JVD or thyromegaly. LUNGS: Breath sounds clear to auscultation bilaterally. Respiration equal and unlabored. No wheezes, rales or rhonchi. Diminished bilaterally. HEART: Regular rate and rhythm with systolic eject murmurs, rubs or gallops. S1 and S2 heard. EXTREMITIES: Normal range of motion, 2+ pitting edema bilaterally up to the knee with dressing in place to the left lower extremity with oozing noted on the dressing. No clubbing or cyanosis. Peripheral pulses intact. ASSESSMENT Acute on chronic systolic heart failure Valvular heart disease status post bioprosthetic valve replacement with subsequent stenosis awaiting TAVR Coronary artery disease status post bypass grafting Chronic persistent atrial fibrillation on long-term anticoagulation Diabetes mellitus Hypertension Dyslipidemia CVA 2016 PLAN Lower extremity edema has improved however has not completely resolved and is unlikely to completely resolve on this admission.. Transition to oral diuretics. Stable for discharge from a cardiac perspective. Follow-up in the office with Dr. Fournier upon discharge, we'll follow along as needed. Nurse Practitioner note has been reviewed, I agree with a documented findings and plan of care. Patient was seen and examined. Objective - Vital Signs Vital signs: Vital Signs Temp 97.9 F 06/08/20 07:37 Pulse 72 06/08/20 09:00 Resp 18 06/08/20 08:00 BP 125/68 06/08/20 07:37 Pulse Ox 98 06/08/20 07:37 Intake & Output 06/07/20 06/08/20 06/08/20 18:59 06:59 18:59 Weight 103.1 kg 103.1 kg Other: Voiding Method Toilet Toilet Toilet # Voids 1 - Labs CBC & Chem 7: 06/05/20 09:50 06/08/20 08:45 Labs: Abnormal Lab Results - Last 24 Hours (Table) 06/07/20 06/07/20 06/07/20 Range/Units 11:54 16:52 20:17 BUN (9-20) mg/dL Glucose (74-99) mg/dL POC Glucose (mg/dL) 147 H 193 H 210 H (75-99) mg/dL 06/08/20 06/08/20 Range/Units 06:48 08:45 BUN 44 H (9-20) mg/dL Glucose 148 H (74-99) mg/dL POC Glucose (mg/dL) 160 H (75-99) mg/dL
[2020-06-08 14:29] VITALS: BP 112/63; RESP 17; TEMP 97.8
[2020-06-08 15:35] VITALS: PULSE 66
[2020-06-08] MEDS ORDERED: FUROSEMIDE 80 MG TAB PO SCH (16:00)
--- NOTE | 2020-06-25 00:29 | P.DS ---
Providers Date of admission: 06/01/20 15:49 Expected date of discharge: 06/08/20 Attending physician: Alfredo Montenegro Consults: 06/01/20 15:49 Consult Physician Routine Consulting Provider: Augustus Rios Consult Reason/Comments: chf Do you want consulting provider notified?: Yes Primary care physician: Shimon Good [facility] Course: Discharge diagnosis -Acute on chronic congestive heart failure exacerbation, EF 40-45%,-Dced Lasix drip. 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 jernigan [facility] course This is a pleasant 79-year-old patient of Dr. good. Chronic stable medical conditions include coronary artery disease with bypass 2 with a redo in 2013 with aortic valve replacement. Also patient's stable condition to diabetes, hyperlipidemia, hypertension. In December of this year CROW-significant bioprosthetic aortic valve stenosis and regurgitation. cardiac catheterization.- Found to about 70% LAD lesion.-Stent was placed. Intervention for the valve postponed because of the COVID pandemic Patient now with presents with progressive increasing shortness of breath edema. Appetite is okay. No fever no chills. He has a chronic left lower extremity wound that he follows at [facility] Doctor jernigan that is draining. At baseline. No cough no phlegm. Admitted with-acute on chronic CHF exacerbation EF 40-45%. Started on Lasix drip. Also pending TAVR for outtake bioprosthetic valve stenosis or regurgitation. EKG tracing personally reviewed by me-atrial fibrillation rate in the 70s with a right bundle-branch block pattern Chest x-ray film personally reviewed by me-cardiomegaly pulmonary edema Previous testing CROW-shows significant prosthetic aortic valve stenosis and regurgitation. EF 40-45% Creatinine 0.77 in December 2019 8 -breathing is a bit better. Appetite improving. Edema is going down. Up to the bathroom. On 06/04/2020 Patient is currently sitting in the chair without any shortness of breath. Still having significant leg swelling which is improving. Lasix drip has been discontinued. Patient was started on IV Lasix currently. BUN is 50 and creatinine 1.66. Pulmonary and cardiology is following. 06/05/2020 Patient is currently sitting on side of the bed comfortably. No complaints of chest pain or worsening shortness of breath. No headache or dizziness or palpitations. Laboratory data showed WBC 7.2, hemoglobin 0.9 and platelets 111 BUN 45 and creatinine 1.35 Patient is being continued IV Lasix. Cardiology is following. 06/06/2020 Patient is currently sitting on the side of the bed comfortably. No complaints of chest pain or shortness of breath. Leg swelling is improving slowly. Currently on room air. No chest pain. No fever no chills. Laboratory data showed sodium 140, potassium 4.4, BUN 49 and creatinine 1.4 Patient is being continued on IV Lasix. Cardiology is on board. 06/07/2020 Patient is currently sitting in the chair comfortably. Denies any complaints of chest pain or shortness of breath. Continues to have bilateral lower extremity significant edema and legs are Lloyd wrapped. Patient has been afebrile. No nausea vomiting abdominal pain or diarrhea. Lab data showed sodium 139, potassium 4.6, bicarb is 31 and BUN 45 and creatinine 1.19. Patient is being continued on Lasix 80 mg IV every 12. 06/08/2020 Patient is currently denied any complaints of chest pain or worsening shortness of breath. Patient does have bilateral lower extremity edema which is improving slowly. Lasix has been changed to by mouth. Laboratory data showed sodium 139, potassium 4.6, BUN 44 and creatinine 1.17 and calcium 8.7 currently on room air. Patient is cleared from cardiology standpoint and follow-up as an outpatient. GENERAL: Sitting on the edge of the chair, breathing better EYES: Pupils equal. Conjunctiva normal. HEENT: External appearance of nose and ears normal, oral cavity grossly normal. NECK: JVD raised; masses not palpable. HEART: First and second heart sounds are normal; edema decreased LUNGS:[ Respiratory rate increased, decreased breath sound ABDOMEN: Soft, nontender slightly distended, liver spleen not palpable, no masses palpable. PSYCH: Alert and oriented x3; mood and affect normal. EXTREMITIES: Wound above the left lower extremity ankle Vital Signs Temp 97.9 F 06/08/20 07:37 Pulse 72 06/08/20 09:00 Resp 18 06/08/20 08:00 BP 125/68 06/08/20 07:37 Pulse Ox 98 06/08/20 07:37 Intake & Output 06/07/20 06/08/20 06/08/20 18:59 06:59 18:59 Weight 103.1 kg 103.1 kg Other: Voiding Method Toilet Toilet Toilet # Voids 1 Patient Condition at Discharge: Fair Plan - Discharge Summary Discharge Rx Participant: No New Discharge Prescriptions: Continue Atorvastatin Calcium [Lipitor] 20 mg PO HS Irbesartan [Avapro] 150 mg PO DAILY@1200 Ipratropium-Albuterol Nebulize [Duoneb 0.5 mg-3 mg/3 ml Soln] 3 ml INHALATION RT-QID PRN PRN Reason: Shortness Of Breath Budesonide/Formoterol Fumarate [Symbicort 160-4.5 Mcg Inhaler] 2 puff INHALATION RT-BID PRN PRN Reason: Shortness Of Breath Aspirin 81 mg PO DAILY #90 chew Apixaban [Eliquis] 2.5 mg PO BID Clopidogrel [Plavix] 75 mg PO DAILY@1200 Cholecalciferol [Vitamin D3 (25 Mcg = 1000 Iu)] 5,000 unit PO DAILY@1200 Spironolactone [Aldactone] 25 mg PO HS Furosemide [Lasix] 80 mg PO BID Insulin Glargine,Hum.rec.anlog [Lantus Solostar] 20 unit SQ HS rOPINIRole HCL [Requip] 0.25 mg PO HS PRN PRN Reason: RESTLESS LEGS/SLEEP Dulaglutide [Trulicity] 1.5 mg SQ MO SILVER sulfADIAZINE Cream [Silvadene 1% Cream] 1 applic TOPICAL DAILY PRN PRN Reason: apply to legs Metoprolol Tartrate [Lopressor] 25 mg PO HS Discharge Medication List Atorvastatin Calcium [Lipitor] 20 mg PO HS 03/02/14 [History] Budesonide/Formoterol Fumarate [Symbicort 160-4.5 Mcg Inhaler] 2 puff INHALATION RT-BID PRN 12/22/19 [History] Ipratropium-Albuterol Nebulize [Duoneb 0.5 mg-3 mg/3 ml Soln] 3 ml INHALATION RT-QID PRN 12/22/19 [History] Irbesartan [Avapro] 150 mg PO DAILY@1200 12/22/19 [History] Aspirin 81 mg PO DAILY #90 chew 01/10/20 [Rx] Apixaban [Eliquis] 2.5 mg PO BID 06/01/20 [History] Cholecalciferol [Vitamin D3 (25 Mcg = 1000 Iu)] 5,000 unit PO DAILY@1200 06/01/20 [History] Clopidogrel [Plavix] 75 mg PO DAILY@1200 06/01/20 [History] Dulaglutide [Trulicity] 1.5 mg SQ MO 06/01/20 [History] Furosemide [Lasix] 80 mg PO BID 06/01/20 [History] Insulin Glargine,Hum.rec.anlog [Lantus Solostar] 20 unit SQ HS 06/01/20 [History] Metoprolol Tartrate [Lopressor] 25 mg PO HS 06/01/20 [History] SILVER sulfADIAZINE Cream [Silvadene 1% Cream] 1 applic TOPICAL DAILY PRN 06/01/20 [History] Spironolactone [Aldactone] 25 mg PO HS 06/01/20 [History] rOPINIRole HCL [Requip] 0.25 mg PO HS PRN 06/01/20 [History] Follow up Appointment(s)/Referral(s): Shimon Good DO [Primary Care Provider] - (office will call with follow-up appointment) Vimal Fournier MD [STAFF PHYSICIAN] - 06/11/20 1:15 pm Patient Instructions/Handouts: Heart Failure (DC) Discharge Disposition: HOME SELF-CARE
== END 2020-06-08 17:00 | disposition home or self-care (01) | DRG 291 ==
LOC: EC 14:15 → 4SSUR 15:49
PROVIDERS: ADMIT Hospitalist; ATTEND Hospitalist
DX: I13.0 Hypertensive heart and chronic kidney disease with heart failure and stage 1 through stage 4 chronic kidney disease, or unspecified chronic kidney disease (principal); I50.23 Acute on chronic systolic (congestive) heart failure; I48.11 Longstanding persistent atrial fibrillation; T82.857A Stenosis of other cardiac prosthetic devices, implants and grafts, initial encounter; I27.20 Pulmonary hypertension, unspecified; I25.10 Atherosclerotic heart disease of native coronary artery without angina pectoris; I07.1 Rheumatic tricuspid insufficiency; I45.10 Unspecified right bundle-branch block; N18.9 Chronic kidney disease, unspecified; J44.9 Chronic obstructive pulmonary disease, unspecified; E66.9 Obesity, unspecified; E78.5 Hyperlipidemia, unspecified; F41.9 Anxiety disorder, unspecified; Y83.1 Surgical operation with implant of artificial internal device as the cause of abnormal reaction of the patient, or of later complication, without mention of misadventure at the time of the procedure; E11.22 Type 2 diabetes mellitus with diabetic chronic kidney disease; Z79.82 Long term (current) use of aspirin; I25.2 Old myocardial infarction; Z79.51 Long term (current) use of inhaled steroids; Z79.02 Long term (current) use of antithrombotics/antiplatelets; Z79.899 Other long term (current) drug therapy; Z68.33 Body mass index [BMI] 33.0-33.9, adult; Z79.01 Long term (current) use of anticoagulants; Z85.828 Personal history of other malignant neoplasm of skin; Z90.49 Acquired absence of other specified parts of digestive tract; Z90.89 Acquired absence of other organs; Z95.5 Presence of coronary angioplasty implant and graft; Z95.1 Presence of aortocoronary bypass graft; Z98.890 Other specified postprocedural states; Z86.73 Personal history of transient ischemic attack (TIA), and cerebral infarction without residual deficits; Z87.891 Personal history of nicotine dependence; Z82.49 Family history of ischemic heart disease and other diseases of the circulatory system; Z80.0 Family history of malignant neoplasm of digestive organs; Z95.3 Presence of xenogenic heart valve
CPT/HCPCS: 36415; 71046; 80048; 80053; 83036; 83605; 83735; 83880; 84484; 85025; 85610; 85730; 93005; 93306; 94640; 94760; 96374; 96375; 99285

== ENCOUNTER → 2024-02-19 | Outpatient (CLI) | payer MEDICARE ==
[2024-02-19 15:18] LABS: African American GFR (CKD) 68 (>60 ml/min/1.73 sqM); Blood Urea Nitrogen 32 mg/dL (9-20); Non-African American GFR(CKD) 59 (>60 ml/min/1.73 sqM)
--- NOTE | 2024-02-19 16:27 | CT ---
EXAMINATION TYPE: CT angio chest DATE OF EXAM: 02/19/2024 4:14 PM COMPARISON: None HISTORY: [place] CT DLP: 661 mGycm Automated exposure control for dose reduction was used. CONTRAST: CTA scan of the thorax is performed with IV Contrast, patient injected with 100 mL of Isovue 370, pul monary embolism protocol. 3-D postprocessing was performed.. FINDINGS: There is no airspace consolidation or abnormal interstitial density. There is a 8 to 9 mm subpleural parenchymal nodule in the left upper lobe laterally. There is no pleural effusion, pleural thickening or pneumothorax. There is a prosthetic aortic valve. There is 4.1 cm aneurysmal dilatation of the ascending thoracic a tha. There is moderate cardiomegaly. There are no filling defects within the pulmonary artery circulation to suggest pulmonary emboli. There is a 3 cm precarinal lymph node, a 18 mm right hilar lymph node and a 14 mm subcarinal lymph no de. There are multiple innumerable additional borderline subcentimeter mediastinal lymph nodes. Limited scanning through the upper abdomen reveals mild ascites. There are multiple gallstones. There is a nonobstructing 10 mm left renal calculus. The osseous structures are intact. IMPRESSION: 1. No evidence of pulmonary embolism. 2. 8-9 mm subpleural parenchymal lung nodule in the left upper lobe. 3. 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 4. Mediastinal and right hilar lymphadenopathy as described above. 5. Mild ascites. 6. Cholelithiasis. 7. Nonobstructing 10 mm left renal calcification.
== END | disposition home or self-care (01) ==
LOC: RADCTMAIN 14:40
PROVIDERS: ATTEND Internal Medicine
DX: R91.1 Solitary pulmonary nodule (principal); I71.21 Aneurysm of the ascending aorta, without rupture; R59.0 Localized enlarged lymph nodes; R18.8 Other ascites; K80.20 Calculus of gallbladder without cholecystitis without obstruction; Z95.2 Presence of prosthetic heart valve
CPT/HCPCS: 82565; 84520; 71275; 36415; Q9967

== ENCOUNTER → 2024-03-25 | Outpatient (CLI) | payer MEDICARE ==
--- NOTE | 2024-03-27 13:55 | CA ---
Transthoracic Echo Report Name: Julian Moise Age: 83 Gender: M : 1940 Exam Date: 03/25/2024 15:37 Exam Location: [facility] Ht (in): 71 Wt (lb): 225 Ordering Physician: Shimon Good DO Attending/Referring Phys: Shimon Good DO [place] Kae Winchester RDCS Procedure CPT: Indications: I50.9 HEART FAILURE, UNSPECIFIED Cardiac Hx: Bioprosthetic AOV Technical Quality: Technically difficult study Contrast 1: Definity Total Dose (mL): 1 Contrast 2: Total Dose (mL): MEASUREMENTS (Male / Female) Normal Values 2D ECHO LV Diastolic Diameter PLAX 4.5 cm 4.2 - 5.9 / 3.9 - 5.3 cm LV Systolic Diameter PLAX 3.1 cm IVS Diastolic Thickness 1.6 cm 0.6 - 1.0 / 0.6 - 0.9 cm LVPW Diastolic Thickness 1.5 cm 0.6 - 1.0 / 0.6 - 0.9 cm LV Relative Wall Thickness 0.7 RV Internal Dim ED PLAX 4.1 cm LVOT Diameter 2.1 cm LA Systolic Diameter LX 4.8 cm 3.0 - 4.0 / 2.7 - 3.8 cm LA Volume 89.9 cm??? 18 - 58 / 22 - 52 cm??? LA Volume Index 39.3 cm???/m??? 16 - 28 cm???/m??? M-MODE Aortic Root Diameter MM 3.6 cm AV Cusp Separation MM 1.0 cm DOPPLER AV Peak Velocity 340.7 cm/s AV Peak Gradient 46.4 mmHg AV Mean Velocity 248.1 cm/s AV Mean Gradient 28.2 mmHg AV Velocity Time Integral 72.7 cm LVOT Peak Velocity 137.8 cm/s LVOT Peak Gradient 7.6 mmHg LVOT Velocity Time Integral 30.6 cm LVOT Stroke Volume 104.2 cm??? LVOT Stroke Volume Index 47.0 ml/m??? LVOT Cardiac Index 2822.8 cm???/min???m??? AV Area Cont Eq vti 1.4 cm??? AV Area Cont Eq pk 1.4 cm??? MV Peak Velocity 146.4 cm/s MV Peak Gradient 8.6 mmHg MV Mean Velocity 69.3 cm/s MV Mean Gradient 2.4 mmHg MV Velocity Time Integral 40.9 cm MV Area PHT 4.5 cm??? MV Deceleration Time 174.9 ms TR Peak Velocity 417.1 cm/s TR Peak Gradient 69.6 mmHg Right Ventricular Systolic Press 73.0 mmHg FINDINGS Left Ventricle Left ventricular ejection fraction is estimated at 40-45 %. Left ventricular cavity size normal. Moderate concentric left ventricular hypertrophy. Flattening of ventricular septum in systole and diastole Right Ventricle Severe right ventricular dilatation. Severe pulmonary hypertension. Right ventricular systolic pressure estimated at 73 mm hg. Right Atrium Mild right atrial dilatation. Left Atrium Moderately increased left atrial diameter. Moderately increased left atrial volume. Mildly increased left atrial area. Mitral Valve Structurally normal mitral valve. Mild mitral annular calcification. Mild mitral regurgitation. Aortic Valve Bioprosthetic aortic valve stenosis with a peak velocity of 3.4 m/s, peak gradient 46 mmHg, mean gradient 28 mmHg, and estimated aortic valve area of 1.4 cm???. Tricuspid Valve Structurally normal tricuspid valve. Moderate tricuspid regurgitation. Pulmonic Valve Structurally normal pulmonic valve. [id number] pulmonic regurgitation. Pericardium No pericardial or pleural effusion. Aorta Normal size aortic root and proximal ascending aorta. CONCLUSIONS Reduced LV systolic function ejection fraction 40 to 45% Flattening of the interventricular septum with severe RV enlargement and severe RVSP elevation Bioprosthetic aortic valve with moderately elevated gradients Previewed by: Dr. Mario Dickens MD (Electronically Signed) Final Date: 27 March 2024 13:54
== END | disposition home or self-care (01) ==
LOC: RADECHMAIN 15:19
PROVIDERS: ATTEND Family Medicine
DX: I50.9 Heart failure, unspecified (principal); I51.7 Cardiomegaly; Z95.3 Presence of xenogenic heart valve
CPT/HCPCS: C8929; Q9957; 93306